=== PATIENT | female | born 1950 | race Caucasian/White ===

== ENCOUNTER → 2024-02-24 10:42 | Outpatient (REF) | payer MEDICARE, OTHER, SELFPAY | LOC: WDC 10:42 | PROVIDERS: ATTENDING PHYSICIAN Nurse Practitioner | DX: Z12.31 Encounter for screening mammogram for malignant neoplasm of breast (principal) | CPT/HCPCS: 77063; 77067 ==

== ENCOUNTER → 2024-08-09 08:40 | Outpatient (REF) | payer MEDICARE, OTHER, SELFPAY ==
[2024-08-09 09:44] LABS: % Basophils 0.6 % (0-2); % Eosinophils 6.3 % (0-6); % Immature Granulocytes 0.4 % (0-0.5); % Lymphocytes 15.5 % (20.5-51.1); % Monocytes 8.5 % (1.7-9.3); % Neutrophils 68.7 % (42.2-75.2); Absolute Eosinophils 0.3 10^3/uL (0-0.7); Absolute Lymphocytes 0.8 10^3/uL (1.2-3.4); Absolute Monocytes 0.5 10^3/uL (0.1-0.6); Absolute Neutrophils 3.7 10^3/uL (1.4-6.5); Hematocrit 36.8 % (37.0-47.0); Hemoglobin 12.2 g/dL (12.0-16.0); Mean Corp Hgb Conc. 33.2 g/dL (33.0-37.0); Mean Corpuscular Hgb 29.4 pg (27.0-31.0); Mean Corpuscular Volume 88.7 fL (81.0-99.0); Mean Platelet Volume 9.5 fL (7.4-10.4); Nucleated Red Blood Cells % 0 %; Platelet Count 191 10^3/uL (130-400); Red Blood Cell Count 4.15 10^6/uL (4.20-5.40); White Blood Cell Count 5.4 10^3/uL (4.8-10.8)
[2024-08-09 09:58] LABS: ALT (SGPT) < 10 U/L (0-35); AST (SGOT) 20 U/L (14-36); Albumin 3.9 g/dl (3.5-5.0); Alkaline Phosphatase 71 U/L (38-126); Blood Urea Nitrogen 15 mg/dl (7-17); Calcium 9.3 mg/dl (8.4-10.2); Carbon Dioxide 26 mmol/L (22-30); Chloride 106 mmol/L (98-107); Glucose 104 mg/dl (70-99); HDL Cholesterol 66 mg/dl; LDL Cholesterol, Calculated 83 mg/dl; Potassium 4.4 mmol/L (3.5-5.1); Sodium 142 mmol/L (135-145); Total Bilirubin 0.5 mg/dl (0.2-1.3); Total Cholesterol 167 mg/dl (50-199); Total Protein 6.4 g/dl (6.3-8.2); Triglyceride 92 mg/dl (10-149); Very Low Density Lipoprotein 18 mg/dl (0-30); eGFR > 60.00
[2024-08-09 10:54] LABS: TSH 1.35 uIU/ml (0.47-4.68)
[2024-08-09 11:28] LABS: Glycohemoglobin (HgbA1c) 5.5 % (4.0-5.6)
== END ==
LOC: REG 08:40
PROVIDERS: ATTENDING PHYSICIAN Nurse Practitioner
DX: E78.5 Hyperlipidemia, unspecified (principal); R73.01 Impaired fasting glucose; Z00.00 Encounter for general adult medical examination without abnormal findings; R53.83 Other fatigue
CPT/HCPCS: 36415; 80053; 80061; 83036; 84443; 85025

== ENCOUNTER 2024-12-10 10:11 | Emergency (ER) | payer MEDICARE, OTHER, SELFPAY ==
[2024-12-10 10:22] VITALS: BP 156/75
[2024-12-10 10:55] LABS: % Basophils 0.6 % (0-2); % Eosinophils 4.9 % (0-6); % Immature Granulocytes 0.2 % (0-0.5); % Lymphocytes 10.7 % (20.5-51.1); % Monocytes 10.3 % (1.7-9.3); % Neutrophils 73.3 % (42.2-75.2); Absolute Eosinophils 0.3 10^3/uL (0-0.7); Absolute Lymphocytes 0.6 10^3/uL (1.2-3.4); Absolute Monocytes 0.5 10^3/uL (0.1-0.6); Absolute Neutrophils 3.8 10^3/uL (1.4-6.5); Hematocrit 37.4 % (37.0-47.0); Hemoglobin 12.6 g/dL (12.0-16.0); Mean Corp Hgb Conc. 33.7 g/dL (33.0-37.0); Mean Corpuscular Hgb 29.2 pg (27.0-31.0); Mean Corpuscular Volume 86.6 fL (81.0-99.0); Mean Platelet Volume 9.5 fL (7.4-10.4); Nucleated Red Blood Cells % 0 %; Platelet Count 157 10^3/uL (130-400); Red Blood Cell Count 4.32 10^6/uL (4.20-5.40); Red Cell Dist. Width 12.9 % (11.5-14.5); White Blood Cell Count 5.1 10^3/uL (4.8-10.8)
[2024-12-10 11:02] LABS: ALT (SGPT) 10 U/L (0-35); AST (SGOT) 22 U/L (14-36); Albumin 3.8 g/dl (3.5-5.0); Alkaline Phosphatase 74 U/L (38-126); Blood Urea Nitrogen 16 mg/dl (7-17); Calcium 8.5 mg/dl (8.4-10.2); Carbon Dioxide 26 mmol/L (22-30); Chloride 105 mmol/L (98-107); Glucose 113 mg/dl (70-99); Potassium 4.1 mmol/L (3.5-5.1); Sodium 139 mmol/L (135-145); Total Bilirubin 0.5 mg/dl (0.2-1.3); Total Protein 6.3 g/dl (6.3-8.2); eGFR > 60.00
[2024-12-10 11:05] LABS: Lactic Acid 0.7 mmol/L (0.7-2.0)
--- NOTE | 2024-12-10 11:17 | ED.GENMED ---
History of Present Illness
<CHERIE De La Rosa - Last Filed: 12/10/24 13:22>
General
Chief Complaint: Skin Problem
Source: patient
Exam Limitations: none
Time Seen by Provider: 12/10/24 10:36
Nursing documentation reviewed up to this point in time: agreed with
History of Present Illness
History of Present Illness:
Patient is a 74-year-old female who presents to the ER for evaluation of right leg redness and swelling. Patient has chronic lymphedema in the right leg but started with chills on Friday and then on Friday noticed her right lower leg was red.
She saw her PCP and was prescribed clindamycin 450 mg 3 times a day. She had 2 doses on Friday and has had a total of 6 doses. The chills went away however today she noticed increasing redness and slight increased swelling. She denies any
fevers
Past History
<CHEIRE De La Rosa - Last Filed: 12/10/24 13:22>
Past History
ED Past Medical History: HTN, Hypercholesterolemia and Hypothyroidism
Social History
Tobacco: Non-smoker
Alcohol: None
Personal:
Living: with family
Review of Systems
<CHERIE De La Rosa - Last Filed: 12/10/24 13:22>
Review of Systems
Allergies reviewed?: Yes
All Other Systems: ROS reviewed and negative except as documented in HPI and ROS
Constitutional: Reports no symptoms; Denies fever
Respiratory: Reports no symptoms
Cardiac: Reports no symptoms
ABD/GI: Reports no symptoms
: Reports no symptoms
Musculoskeletal: Reports other (right leg swelling/redness)
Skin: Reports no symptoms
Psychiatric: Reports no symptoms
Phy Exam
<CHERIE De La Rosa - Last Filed: 12/10/24 13:22>
General Physical Exam
General Presentation: no apparent distress
General age: appears stated age
General Skin: warm and dry
General Habitus: normal
General Mental: alert
General Hydration: appears well hydrated
Neurological Exam
Neurological Exam: alert and oriented x3
Musculoskeletal Exam
Musculoskeletal Exam: other (rle with + strong pulses + erythema and swelling to right lower leg(slight increased swelling more than normal ))
Skin Exam
Skin Exam: normal color and warm/dry
Psychiatric Exam
Psychiatric Exam: normal mood/affect
Course
<CHERIE De La Rosa - Last Filed: 12/10/24 13:22>
Orders/Labs/Results
Orders:
Orders
12/10/24 10:34
Complete Blood Count/With Diff Urgent
Comprehensive Metabolic Panel Urgent
Lactic Acid Q4H
Comment: ON ICE, CANCEL 2ND ORDER IF FIRST LACTIC ACID LEVEL <2
12/10/24 11:16
Venous Doppler Lwr Ext Rt [US Periph Venous LOWER Ext RT] Urgent
Comment:
Reason For Exam: right leg swelling
Abnormal Lab Results
12/10/24
10:34
Absolute Lymphs (auto) 0.6 L 10^3/uL
(1.2-3.4)
Lymphocytes % 10.7 L %
(20.5-51.1)
Monocytes % 10.3 H %
(1.7-9.3)
Glucose 113 H mg/dl
(70-99)
12/10/24 10:34
12/10/24 10:34
Vital Signs
Initial and Last Documented VS:
Initial Vital Signs
Temp Pulse Resp BP Pulse Ox
98.7 F 76 16 156/75 98
12/10/24 10:22 12/10/24 10:22 12/10/24 10:22 12/10/24 10:22 12/10/24 10:22
Last Documented Vital Signs
Temp Pulse Resp BP Pulse Ox
98.7 F 76 16 156/75 98
12/10/24 10:22 12/10/24 10:22 12/10/24 10:22 12/10/24 10:22 12/10/24 10:22
<Carlos Barnett, DO - Last Filed: 12/10/24 13:08>
Orders/Labs/Results
Orders:
Orders
12/10/24 10:34
Complete Blood Count/With Diff Urgent
Comprehensive Metabolic Panel Urgent
Lactic Acid Q4H
Comment: ON ICE, CANCEL 2ND ORDER IF FIRST LACTIC ACID LEVEL <2
12/10/24 11:16
Venous Doppler Lwr Ext Rt [US Periph Venous LOWER Ext RT] Urgent
Comment:
Reason For Exam: right leg swelling
Abnormal Lab Results
12/10/24
10:34
Absolute Lymphs (auto) 0.6 L 10^3/uL
(1.2-3.4)
Lymphocytes % 10.7 L %
(20.5-51.1)
Monocytes % 10.3 H %
(1.7-9.3)
Glucose 113 H mg/dl
(70-99)
12/10/24 10:34
12/10/24 10:34
Vital Signs
Initial and Last Documented VS:
Initial Vital Signs
Temp Pulse Resp BP Pulse Ox
98.7 F 76 16 156/75 98
12/10/24 10:22 12/10/24 10:22 12/10/24 10:22 12/10/24 10:22 12/10/24 10:22
Last Documented Vital Signs
Temp Pulse Resp BP Pulse Ox
98.7 F 76 16 156/75 98
12/10/24 10:22 12/10/24 10:22 12/10/24 10:22 12/10/24 10:22 12/10/24 10:22
<CHERIE De La Rosa - Last Filed: 12/10/24 13:22>
MDM/Problems Addressed
Differential Diagnosis Includes:
Not limited to cellulitis less likely DVT
MDM/Problems Addressed:
Patient has been on 6 doses of clindamycin for cellulitis of the right leg right leg but complains of persistent redness. She however does not feel ill denies any fever chills and is nontoxic on exam with a normal white count. She is chronic
lymphedema to the right leg. Ultrasound done and negative. Case discussed with Dr. Daiz who evaluated patient will DC with Bactrim as well in addition to patient taking clindamycin
<CHERIE De La Rosa - Last Filed: 12/10/24 13:22>
*Critical Care Note
Total Time (30-74mins, 75-104mins- exclusive of procedures): Not Applicable
ED Attending Note
<CHERIE De La Rosa - Last Filed: 12/10/24 13:22>
-
Portions of this chart may have been created with voice recognition software.� Occasional wrong word or��sound alike� substitutions may have occurred due to the inherent limitations of voice recognition software.
<Carlos Barnett DO - Last Filed: 12/10/24 13:08>
ED Attending Note
Patient seen and examined by attending physician: Yes
I performed the substantive portion of visit, reviewed & personally made and approve the management plan that is documented in note by myself or MARY.: Yes
ED Attending Note:
I have seen and evaluated the patient with a [id number] encounter. I have spoken to the advance practicer provider and involved in the medical history, the physical exam, medical decision making.
Evaluation and management service: agree unless noted differently below.
Results interpretation: agree unless noted differently below.
Focused HPI: 74-year-old female presenting with increased redness to her right leg. She has a history of lymphedema. It has developed in the cellulitis in the past. She is concerned because she has taken a total of 6 doses of clindamycin already
and the erythema persists. However, the chills and the pain has improved
Physical exam: Bilateral leg lymphedema. Erythema noted to right leg. Sensation and pulses grossly intact
Medical Decision Making: Ultrasound negative for DVT. Will add Bactrim for extra coverage. Patient is comfortable this plan and understand strict return precautions
Discharge Plan
Departure
Patient Disposition: Home (Routine Discharge)
Date of Disposition: 12/10/24
Time of Disposition: 13:18
Patient with high blood pressure during this ER visit?: Yes
Condition: Fair
Covid-19: Not Applicable
Discharge Problem:
Cellulitis
Instructions: Cellulitis (Skin Infection), Adult (DC), BLOOD PRESSURE
Prescriptions:
New
sulfamethoxazole-trimethoprim [Bactrim DS] 800-160 mg tablet
1 tab PO BID Qty: 20 0RF
No Action
polyethylene glycol 3350 [Miralax] 17 gram Powder In Packet
PO
omeprazole [Prilosec] 40 mg Capsule,Delayed Release(Dr/Ec)
40 mg PO DAILY
meloxicam 7.5 mg Tablet
7.5 mg PO PRN (Reason: pain)
amlodipine 10 mg Tablet
10 mg PO DAILY
cyclobenzaprine 5 mg Tablet
5 mg PO PRN (Reason: stiffness)
Colyte 240-22.72-6.72 -5.84 gram Recon Soln
PO DIRECTED
melatonin 5 mg Tablet
5 mg PO HS
aspirin 81 mg Capsule
81 mg PO DAILY
levothyroxine
1 tab PO DAILY
lisinopril
1 tab PO DAILY
pantoprazole [Protonix] 40 mg tablet,delayed release (DR/EC)
40 mg PO DAILY Qty: 30 0RF
Referrals:
Luma Olsen CRNP [Family Provider] -
Activity Restrictions/Additional Instructions:
As discussed continue clindamycin however a prescription for Bactrim was sent to your pharmacy take as directed twice a day for the next 10 days. Closely follow-up with your family doctor for reevaluation i and return if any worsening of symptoms
Interventions
Interventions:
*Risk Screen - Suicide Last Done: 12/10/24 10:22
*General Assessment Last Done: 12/10/24 11:41
*Neglect/Abuse Screening Last Done: 12/10/24 10:22
*ED COVID-19 Vaccine History Last Done: 12/10/24 11:41
Discharge Date and Time
Print Language: ECUADOREAN
[2024-12-10] MEDS: BACTRIM DS 800 MG/160 MG 1 TABLET PO (13:29)
[2024-12-10 13:31] VITALS: BP 170/86
== END 2024-12-10 13:31 | disposition home or self-care (01) ==
LOC: EMR 10:11
PROVIDERS: EMERGENCY PHYSICIAN Student in an Organized Health Care Education/Training Program; FAMILY PHYSICIAN Nurse Practitioner
DX: L03.115 Cellulitis of right lower limb (principal); E03.9 Hypothyroidism, unspecified; E78.00 Pure hypercholesterolemia, unspecified; I10 Essential (primary) hypertension; I89.0 Lymphedema, not elsewhere classified
CPT/HCPCS: 99284; 80053; 83605; 85025; 93971

== ENCOUNTER 2025-01-13 12:32 | Inpatient (IN) | payer MEDICARE, OTHER, SELFPAY ==
[2025-01-13 08:10] VITALS: BP 165/82
[2025-01-13 09:07] VITALS: BMI 56.3
--- NOTE | 2025-01-13 09:24 | ED.GENMED ---
History of Present Illness
General
Chief Complaint: Skin Problem
Source: patient
Exam Limitations: none
Time Seen by Provider: 01/13/25 09:01
History of Present Illness
History of Present Illness:
74yoF with a history of hypertension, hyperlipidemia, hypothyroidism, obesity, and chronic lymphedema with recurrent cellulitis presenting for evaluation of right lower leg redness and swelling. Symptoms have been ongoing for over a month. She was
initially prescribed a course of clindamycin by her PCP on 12/08/2024. She was subsequently seen in the ED on 12/10/2024 and Bactrim was added. She took these antibiotics for 2 weeks with persistent symptoms. Her PCP then prescribed her doxycycline
which she was supposed to finish yesterday. She noticed worsening redness in her leg over the past 24 hours. She also spiked a fever of 100.8 yesterday. Her PCP prescribed an additional 10 days of doxycycline but patient believes she may need IV
antibiotics. She denies any cough, URI symptoms, dysuria, vomiting, diarrhea. No history of diabetes.
Past History
Past History
ED Past Medical History: HTN, Hypercholesterolemia and Hypothyroidism
Social History
Tobacco: Non-smoker
Alcohol: None
Personal:
Living: with family
Phy Exam
General Physical Exam
General Presentation: well appearing and no apparent distress
General age: appears stated age
General Skin: warm and dry
General Habitus: normal
General Mental: alert
ENT Exam
ENT Exam: normocephalic
Pulmonary Exam
Pulmonary Exam: no respiratory distress
Neurological Exam
Neurological Exam: alert
Diego Coma Scale
Eye Opening: Spontaneous
Verbal Response: Oriented
Motor Response: Obeys Commands
GCS Total Score: 15
Skin Exam
Skin Exam: warm/dry and other (Erythema and warmth noted to the R lower leg consistent with cellulitis. No fluctuance, purulence, crepitus, or pain out of proportion. )
Psychiatric Exam
Psychiatric Exam: normal mood/affect
Course
Orders/Labs/Results
Orders:
Orders
01/13/25 09:22
0.9% Sodium Chloride 500 ml [Nss] 500 ml IV BOLUS
01/13/25 09:25
CefTRIAXone [Rocephin] 2,000 mg IV NOW STA
01/13/25 09:54
COVID-19 Antigen Urgent
Source: Nasal Swab
Complete Blood Count/With Diff Urgent
Comprehensive Metabolic Panel Urgent
Lactate Level [Lactic Acid] Urgent
Blood Culture Q30M
SALAZAR Source: Blood/Venous
Specimen Description:
Blood Culture Q30M
SALAZAR Source: Blood/Venous
Specimen Description:
Influenza A+B Rapid Molecular Urgent
SALAZAR Source: Nasal Swab
Specimen Description:
01/13/25 Lunch
Regular
01/13/25 12:16
Admit/Transfer Patient As Directed
Co-Sign Provider:
Level of Care: Inpatient admission
Assign to:: Medical/Surgical
Physician / Group: Shabbir
Diagnosis: LE cellulites
Reason for Hospitalization: failed oral antibiotics
Expected length of stay greater than two midnights?: Yes
ELOS- Estimated Length of Stay in days: 2
I certify the patient meets the requirements for IP care: Yes
01/13/25 12:17
PRN Pain Medication Management As Directed
May give lesser potent ordered pain med per pt: Yes
preference::
Protocol:: Medication orders for pain may be administered in a
manner that supports deferring to patient preference
when the pt is:
- Requesting an ordered lesser potent pain medication.
Least to most potent pain medications are defined
as: acetaminophen < NSAID < tramadol < opioids
(morphine, oxycodone, hydromorphone).
- Requesting a lesser dose of the same medication IF
ORDERED.
- Requesting a less intrusive route of administration
if both routes are prescribed by the provider (PO <
IV).
01/13/25 12:19
Code Status As Directed
Resuscitation Status: Full Code
01/13/25 13:58
Acetaminophen [Tylenol] 650 mg PO Q6HPRN PRN
Amlodipine [Norvasc] 5 mg PO QPM
Aspirin Low Dose EC [Aspir Low (Enteric Coated)] 81 mg PO QPM
Levothyroxine [Synthroid] 125 mcg PO QPM
Lisinopril [Zestril] 20 mg PO QPM
01/13/25 13:58
Add On- LAB Routine
Tests Added?: TSH, P-CHF BNP, Hg A1c
CT Lower Ext W/o Iv Cont Rt Routine
Comment:
Reason For Exam: severe cellulites not responding to oral abx
Periph Venous Lwr Ext Rt US [US Periph Venous LOWER Ext RT] Urgent
Comment:
Reason For Exam: erythema and edema
DX Deep Vein Thrombosis Video Routine
01/13/25 14:00
CeFAZolin 2 GRAM [Ancef] 2 grams in 10 ml IV Q8H
01/13/25 18:00
Docusate Sodium [Colace] 200 mg PO QPM
Enoxaparin Sodium [Lovenox] 40 mg SC QPM
Pantoprazole [Protonix] 40 mg PO QPM
Rosuvastatin Calcium [Crestor] 5 mg PO QPM
Sennosides [Senokot] 17.2 mg PO QPM
01/14/25 06:00
BMP [Basic Metabolic Panel] IN AM
CBC/With Diff [Complete Blood Count/With Diff] IN AM
Abnormal Lab Results
01/13/25
09:54
WBC 4.6 L 10^3/uL
(4.8-10.8)
RBC 4.17 L 10^6/uL
(4.20-5.40)
MCHC 32.9 L g/dL
(33.0-37.0)
MPV 10.6 H fL
(7.4-10.4)
Absolute Lymphs (auto) 0.7 L 10^3/uL
(1.2-3.4)
Lymphocytes % 14.2 L %
(20.5-51.1)
Monocytes % 10.7 H %
(1.7-9.3)
Glucose 104 H mg/dl
(70-99)
01/13/25 09:54
01/13/25 09:54
Vital Signs
Initial and Last Documented VS:
Initial Vital Signs
Temp Pulse Resp BP Pulse Ox
98.6 F 68 18 165/82 98
01/13/25 08:10 01/13/25 08:10 01/13/25 08:10 01/13/25 08:10 01/13/25 08:10
Last Documented Vital Signs
Temp Pulse Resp BP Pulse Ox
98.6 F 68 18 165/82 98
01/13/25 08:10 01/13/25 08:10 01/13/25 08:10 01/13/25 08:10 01/13/25 08:10
MDM/Problems Addressed
Differential Diagnosis Includes:
74yoF here with R lower leg redness/swelling x 1 month. Completed multiple courses of antibiotics including Bactrim, clindamycin, and doxycycline without relief. Spiked a fever of 100.8 yesterday. VSS. She is well-appearing in no acute distress.
There is erythema and warmth to the leg on exam. Differential diagnosis includes but is not limited to: Cellulitis, erysipelas, lymphedema, no evidence of abscess or NSTI.
Initial ED plan: Check septic workup including lactate and blood cultures. Patient had venous duplex last month which was negative. IV Rocephin ordered. She will require hospitalization given failure of outpatient antibiotics.
*Critical Care Note
Total Time (30-74mins, 75-104mins- exclusive of procedures): Not Applicable
ED Attending Note
-
Portions of this chart may have been created with voice recognition software.� Occasional wrong word or��sound alike� substitutions may have occurred due to the inherent limitations of voice recognition software.
Discharge Plan
Departure
Patient Disposition: Admit
Date of Disposition: 01/13/25
Time of Disposition: 10:44
Presentation/result/management discussed w/ accepting MD/DO: Hospitalist
Discharge Problem:
Cellulitis of right lower extremity
Interventions
Interventions:
*Risk Screen - Suicide Last Done: 01/13/25 08:10
*General Assessment Last Done: 01/13/25 08:10
*Neglect/Abuse Screening Last Done: 01/13/25 08:10
ED- Fall Risk Assessment Last Done: 01/13/25 09:07
*ED COVID-19 Vaccine History Last Done: 01/13/25 08:10
*Nursing Disposition Last Done: 01/13/25 13:51
ED-Skin Assessment Last Done: 01/13/25 09:07
Discharge Date and Time
Discharge Date/Time: 01/13/25 13:51
[2025-01-13] MEDS: ROCEPHIN 2000 MG IV (10:11)
[2025-01-13] MEDS: NSS 500 IV (10:11)
[2025-01-13 10:32] LABS: % Basophils 0.2 % (0-2); % Eosinophils 3.9 % (0-6); % Immature Granulocytes 0.2 % (0-0.5); % Lymphocytes 14.2 % (20.5-51.1); % Monocytes 10.7 % (1.7-9.3); % Neutrophils 70.8 % (42.2-75.2); Absolute Eosinophils 0.2 10^3/uL (0-0.7); Absolute Lymphocytes 0.7 10^3/uL (1.2-3.4); Absolute Monocytes 0.5 10^3/uL (0.1-0.6); Absolute Neutrophils 3.3 10^3/uL (1.4-6.5); Hematocrit 37.4 % (37.0-47.0); Hemoglobin 12.3 g/dL (12.0-16.0); Mean Corp Hgb Conc. 32.9 g/dL (33.0-37.0); Mean Corpuscular Hgb 29.5 pg (27.0-31.0); Mean Corpuscular Volume 89.7 fL (81.0-99.0); Mean Platelet Volume 10.6 fL (7.4-10.4); Nucleated Red Blood Cells % 0 %; Platelet Count 150 10^3/uL (130-400); Red Blood Cell Count 4.17 10^6/uL (4.20-5.40); Red Cell Dist. Width 13.9 % (11.5-14.5); White Blood Cell Count 4.6 10^3/uL (4.8-10.8)
[2025-01-13 10:38] LABS: COVID-19 Antigen Negative (Negative)
[2025-01-13 10:39] LABS: Lactic Acid 0.8 mmol/L (0.7-2.0)
[2025-01-13 10:40] LABS: ALT (SGPT) < 10 U/L (0-35); AST (SGOT) 20 U/L (14-36); Albumin 4.1 g/dl (3.5-5.0); Alkaline Phosphatase 75 U/L (38-126); Blood Urea Nitrogen 14 mg/dl (7-17); Calcium 8.7 mg/dl (8.4-10.2); Carbon Dioxide 28 mmol/L (22-30); Chloride 104 mmol/L (98-107); Estimated Creatinine Clearance 87 ml/min; Glucose 104 mg/dl (70-99); Potassium 4.2 mmol/L (3.5-5.1); Sodium 138 mmol/L (135-145); Total Bilirubin 0.7 mg/dl (0.2-1.3); Total Protein 6.4 g/dl (6.3-8.2); eGFR > 60.00
--- NOTE | 2025-01-13 12:26 | HPS.HSE ---
Family Physician
-
Family Physician: CHERIE Resendiz
Chief Complaint
-
Right lower extremity cellulitis
History of Present Illness
Patient is a 74 years old female with lymphedema who presents with persistent right lower extremity cellulitis. Patient received close to 2 weeks of oral antibiotic therapy including Bactrim, clindamycin. Although reports to the emergency room
today with persistent right lower extremity erythema and induration, pain, and low-grade fever at home. She denies chills. She has recently been referred to lymphedema clinic pending first visit.
Medical History
Past Medical History
Past Medical History: Reports HTN and Hypercholesterolemia; Denies CHF or NIDDM
Past Surgical History: Reports None
Social History
Tobacco: Non-smoker
Drug: None
Living: With Family
Family History
Family History: Not pertinent
Allergies / Home Medications
Allergies reflects when Allergies were last updated in [facility].
Home Medications with original date entered in [facility]
Allergy/Medication List:
Allergies
Allergy/AdvReac Type Severity Reaction Status Date / Time
iohexol [From Omnipaque] Allergy Hives Verified 01/13/25 08:14
levofloxacin [From Levaquin] Allergy Unknown Verified 01/13/25 08:14
Penicillins Allergy Swelling, Verified 01/13/25 08:14
throat
closing up
Home Medications
amlodipine 5 mg tablet 5 mg PO QPM 01/13/25
aspirin 81 mg tablet,delayed release 81 mg PO QPM 01/13/25
docusate sodium 100 mg capsule 200 mg PO QPM 01/13/25
doxycycline hyclate 100 mg capsule 100 mg PO BID 01/13/25
ibuprofen 200 mg tablet 400 mg PO Q6HPRN PRN HEADACHE 01/13/25
levothyroxine 125 mcg tablet 125 mcg PO QPM 01/13/25
lisinopril 20 mg tablet 20 mg PO QPM 01/13/25
pantoprazole 40 mg tablet,delayed release (Protonix) 40 mg PO QPM 01/13/25
rosuvastatin 5 mg tablet 5 mg PO QPM 01/13/25
sennosides 8.6 mg tablet (senna) 17.2 mg PO QPM 01/13/25
Review of Systems
-
A 12 point ROS was completed and negative except as noted: Yes
Physical Exam
Vital Signs
Vital Signs
Temp Pulse Resp BP Pulse Ox
98.6 F 68 18 165/82 98
01/13/25 08:10 01/13/25 08:10 01/13/25 08:10 01/13/25 08:10 01/13/25 08:10
Physical Exam
General: Well Developed, Well Nourished and No Apparent Distress
HEENT: NormoCephalic, Moist mucous membranes and Atraumatic
Respiratory: Clear
Cardiac: S1/S2 and Regular Rhythm; No Murmur or Rub
GI: Soft, Non Tender, Non Distended and Normal Bowel Sounds; No Organomegaly
Rectal: Deferred by Provider
Musculoskeletal: No Clubbing, No Cyanosis and Other (Bilateral lymphedema. Right lower extremity warm with palpable pedal pulses. Erythema and induration below the knee with no wounds, purulence or fluctuance.)
Skin: No Rash
Neuro: Nonfocal/grossly intact
Laboratory Results
-
01/13/25 09:54
01/13/25 09:54
Laboratory Results
Lactic Acid 0.8 mmol/L (0.7-2.0) 01/13/25 09:54
Total Bilirubin 0.7 mg/dl (0.2-1.3) 01/13/25 09:54
AST 20 U/L (14-36) 01/13/25 09:54
ALT < 10 U/L (0-35) 01/13/25 09:54
Alkaline Phosphatase 75 U/L (38-126) 01/13/25 09:54
Impression/Plan
-
IMPRESSION:
Right lower extremity cellulitis complicated with lymphedema.
Other conditions:
Essential hypertension
Dyslipidemia
Hypothyroidism
Obesity with BMI 56
PLAN:
Right lower extremity cellulitis complicated with lymphedema
No response to prolonged outpatient antibiotic therapy including clindamycin, doxycycline and Bactrim.
No evidence of systemic infection
Blood cultures pending.
Check right lower extremity Doppler
Check right lower extremity CT without contrast rule out deep tissue collection.
Start cefazolin 2 g every 8 hours.
Monitor response closely while inpatient
Check hemoglobin A1c
Essential hypertension
Bilateral lower extremity edema/lymphedema with no symptoms of heart failure
No prior history of CHF
Most recent echocardiogram with preserved biventricular function.
Check CHF BNP
Monitor blood pressure trend preadmission regimen including lisinopril and amlodipine
Hypothyroidism replace
Obesity with BMI of 56 affecting all aspects of care.
[2025-01-13 14:06] VITALS: BP 182/74; BMI 54.9
[2025-01-13 14:55] LABS: NT-proBNP 362 pg/ml
[2025-01-13] MEDS: NORVASC 5 MG PO ×2 (15:13→17:08)
[2025-01-13] MEDS: ANCEF 10 IV ×2 (15:14→21:53)
[2025-01-13 15:17] LABS: Glycohemoglobin (HgbA1c) 5.4 % (4.0-5.6); TSH 1.81 uIU/ml (0.47-4.68)
--- NOTE | 2025-01-13 15:35 | PTCARENOTE ---
Pt arrived to floor from ED via wheelchair. Ambulated into room without difficulty. Denying pain. Hypertensive upon admission. Scheduled Norvasc administered. LLE erythema. +3 RLE edema. +1 LLE edema. Weak pedal pulse. 98% on room air. (L) AC #20
flushed and capped.
[2025-01-13] MEDS: ASPIR LOW (ENTERIC COATED) 81 MG PO (17:08)
[2025-01-13] MEDS: PROTONIX 40 MG PO (17:08)
[2025-01-13] MEDS: SENOKOT 17.2 MG PO (17:08)
[2025-01-13] MEDS: SYNTHROID 125 MCG PO (17:08)
[2025-01-13] MEDS: COLACE 200 MG PO (17:08)
[2025-01-13] MEDS: CRESTOR 5 MG PO (17:08)
[2025-01-13] MEDS: ZESTRIL 20 MG PO (17:08)
[2025-01-13] MEDS: LOVENOX 40 MG SC (17:09)
[2025-01-13 17:39] VITALS: BP 152/70
[2025-01-13 23:42] VITALS: BP 127/58
[2025-01-14] MEDS: ANCEF 10 IV ×3 (05:20→22:56)
[2025-01-14 05:44] LABS: % Basophils 0.2 % (0-2); % Eosinophils 5.6 % (0-6); % Immature Granulocytes 0.5 % (0-0.5); % Lymphocytes 16.6 % (20.5-51.1); % Monocytes 12.2 % (1.7-9.3); % Neutrophils 64.9 % (42.2-75.2); Absolute Eosinophils 0.2 10^3/uL (0-0.7); Absolute Lymphocytes 0.7 10^3/uL (1.2-3.4); Absolute Monocytes 0.5 10^3/uL (0.1-0.6); Absolute Neutrophils 2.7 10^3/uL (1.4-6.5); Hematocrit 33.1 % (37.0-47.0); Hemoglobin 10.7 g/dL (12.0-16.0); Mean Corp Hgb Conc. 32.3 g/dL (33.0-37.0); Mean Corpuscular Hgb 29.7 pg (27.0-31.0); Mean Corpuscular Volume 91.9 fL (81.0-99.0); Nucleated Red Blood Cells % 0 %; Platelet Count 130 10^3/uL (130-400); Red Cell Dist. Width 13.7 % (11.5-14.5); White Blood Cell Count 4.1 10^3/uL (4.8-10.8)
[2025-01-14 06:31] LABS: Blood Urea Nitrogen 17 mg/dl (7-17); Calcium 8.3 mg/dl (8.4-10.2); Carbon Dioxide 30 mmol/L (22-30); Chloride 107 mmol/L (98-107); Estimated Creatinine Clearance 100 ml/min; Glucose 98 mg/dl (70-99); Potassium 4.2 mmol/L (3.5-5.1); Sodium 139 mmol/L (135-145); eGFR > 60.00
[2025-01-14 07:35] VITALS: BP 150/70
--- NOTE | 2025-01-14 11:12 | CM ---
Patient seen at bedside. Patient states that she lives with her in a rancher with chair lift to the basement. Patient has no other DME at home. Patient [employer]MI[employer] is Luma Olsen and she uses [facility] in [place] on [address]. Patient
plan is for discharge home with possible need for VN pending treatment plan. CM will continue to follow for discharge planning needs
Plan; home with no needs vs home with VN
--- NOTE | 2025-01-14 14:01 | W.PN.HOSP.TC ---
Today's Communication/Plan
-
Continue IV antibiotics for another 24 to 48 hours monitor clinical response
Assessment / Plan
Assessment / Plan
IMPRESSION:
Right lower extremity cellulitis complicated with lymphedema.
Other conditions:
Essential hypertension
Dyslipidemia
Hypothyroidism
Obesity with BMI 56
PLAN:
Right lower extremity cellulitis complicated with lymphedema
No response to prolonged outpatient antibiotic therapy including clindamycin, doxycycline and Bactrim.
No evidence of systemic infection
Blood cultures negative to date
Right lower extremity Doppler negative for DVT
CT scan with no evidence of collection/abscess
Initiated on cefazolin 2 g every 8 hours with significant improvement of right lower extremity erythema and induration. Continue for another 24 to 48 hours.
Hemoglobin A1c normal
Essential hypertension
Bilateral lower extremity edema/lymphedema with no symptoms of heart failure
No prior history of CHF
Most recent echocardiogram with preserved biventricular function.
Check CHF BNP
Monitor blood pressure trend preadmission regimen including lisinopril and amlodipine
Hypothyroidism replace
Obesity with BMI of 56 affecting all aspects of care.
Anticipated Discharge: 24 - 48 hours
Subjective/Interval History
-
Date of Service: January 14, 2025
Objective Data
-
Labs:
Laboratory Results
01/14/25
05:32
WBC 4.1 L
Hgb 10.7 L
Hct 33.1 L
Plt Count 130
Sodium 139
Potassium 4.2
Chloride 107
Carbon Dioxide 30
BUN 17
Creatinine 0.6
Glucose 98
Calcium 8.3 L
Vital Signs:
Vital Signs
Temp Pulse Resp BP Pulse Ox
98.0 F 59 16 150/70 96
01/14/25 07:35 01/14/25 07:35 01/14/25 07:35 01/14/25 07:35 01/14/25 07:35
Physical Exam
-
General: Well Developed and No Apparent Distress
HEENT: Normocephalic, Atraumatic and Moist Mucous Membranes
Respiratory: Clear to Auscultation
Cardiac: Regular Rhythm and S1/S2; Negative Murmur, Rub or Gallop
GI: Soft, Nontender, Nondistended and Normal Bowel Sounds; Negative Organomegaly
Rectal: Deferred by Provider
Musculoskeletal: No Clubbing, No Cyanosis and Other (Bilateral lower extremity lymphedema. Right lower extremity with mild erythema and induration below the knee extending peripherally down to ankle. No evidence of joint involvement either knee or
ankle.)
Skin: Negative Rash
Neuro: Nonfocal/Grossly Intact
[2025-01-14 14:32] VITALS: BP 139/65
[2025-01-14] MEDS: PROTONIX 40 MG PO (17:23)
[2025-01-14] MEDS: COLACE 200 MG PO (17:23)
[2025-01-14] MEDS: ZESTRIL 20 MG PO (17:23)
[2025-01-14] MEDS: SENOKOT 17.2 MG PO (17:23)
[2025-01-14] MEDS: NORVASC 5 MG PO (17:23)
[2025-01-14] MEDS: ASPIR LOW (ENTERIC COATED) 81 MG PO (17:23)
[2025-01-14] MEDS: LOVENOX 40 MG SC (17:23)
[2025-01-14] MEDS: SYNTHROID 125 MCG PO (17:23)
[2025-01-14] MEDS: CRESTOR 5 MG PO (17:23)
[2025-01-14 23:28] VITALS: BP 148/50
[2025-01-15] MEDS: ANCEF 10 IV ×3 (06:01→22:27)
[2025-01-15 07:47] VITALS: BP 148/54
--- NOTE | 2025-01-15 11:45 | W.PN.HOSP.TC ---
Today's Communication/Plan
-
dc in am
c/w IV Ancef for another 24 hours
Oral Keflex was sent to pharmacy
Maintain compression dressing as tolerated, preferably 2 hours on/1 hour off
Assessment / Plan
Assessment / Plan
Physical Exam
-
General: Well Developed and No Apparent Distress
HEENT: Normocephalic, Atraumatic and Moist Mucous Membranes
Respiratory: Clear to Auscultation
Cardiac: Regular Rhythm and S1/S2; Negative Murmur, Rub or Gallop
GI: Soft, Nontender, Nondistended and Normal Bowel Sounds; Negative Organomegaly
Rectal: Deferred by Provider
Musculoskeletal: No Clubbing, No Cyanosis and Other (Bilateral lower extremity lymphedema. Right lower extremity with mild erythema, not tender to touch) No evidence of joint involvement either knee or ankle.)
Skin: Negative Rash
Neuro: Nonfocal/Grossly Intact
IMPRESSION:
Right lower extremity cellulitis complicated with lymphedema.
Other conditions:
Essential hypertension
Dyslipidemia
Hypothyroidism
Obesity with BMI 56
PLAN:
Right lower extremity cellulitis complicated with lymphedema
No response to prolonged outpatient antibiotic therapy including clindamycin, doxycycline and Bactrim.
No evidence of systemic infection
Blood cultures negative to date
Right lower extremity Doppler negative for DVT
CT scan with no evidence of collection/abscess
Initiated on cefazolin 2 g every 8 hours with significant improvement of right lower extremity erythema and induration. Continue for another 24 to 48 hours.
Hemoglobin A1c normal
Essential hypertension
Bilateral lower extremity edema/lymphedema with no symptoms of heart failure
No prior history of CHF
Most recent echocardiogram with preserved biventricular function.
Check CHF BNP
Monitor blood pressure trend preadmission regimen including lisinopril and amlodipine
# Leukopenia, no fevers
# drop in HGB, likely dilutional
#Hypothyroidism replace
#Obesity with BMI of 56 affecting all aspects of care. We discussed options for weight loss. Recommended to follow-up with weight management clinic. She verbalized understanding.
Total time spent to see the patient on the floor, examine the patient, review data and lab results, discuss treatment plan with patient, nursing staff around 55 minutes
Anticipated Discharge: Within 24 hours
Subjective/Interval History
-
Date of Service: January 15, 2025
No pain in leg
Improvement in erythema of right lower leg
Objective Data
-
Vital Signs:
Vital Signs
Temp Pulse Resp BP Pulse Ox
98.5 F 57 16 148/54 96
01/15/25 07:47 01/15/25 07:47 01/15/25 07:47 01/15/25 07:47 01/15/25 10:14
I&O
01/14/25 01/15/25 01/16/25
06:59 06:59 06:59
Intake Total 480 / 480
Balance 480 / 480
[2025-01-15 15:02] VITALS: BP 147/63
[2025-01-15] MEDS: ZESTRIL 20 MG PO (17:09)
[2025-01-15] MEDS: ASPIR LOW (ENTERIC COATED) 81 MG PO (17:09)
[2025-01-15] MEDS: PROTONIX 40 MG PO (17:09)
[2025-01-15] MEDS: COLACE 200 MG PO (17:11)
[2025-01-15] MEDS: CRESTOR 5 MG PO (17:11)
[2025-01-15] MEDS: SENOKOT 17.2 MG PO (17:12)
[2025-01-15] MEDS: NORVASC 5 MG PO (17:12)
[2025-01-15] MEDS: LOVENOX 40 MG SC (17:14)
[2025-01-15] MEDS: SYNTHROID 125 MCG PO (17:20)
[2025-01-15 23:00] VITALS: BP 147/54
[2025-01-16] MEDS: ANCEF 10 IV (05:27)
[2025-01-16 06:59] LABS: Hematocrit 30.9 % (37.0-47.0); Hemoglobin 10.5 g/dL (12.0-16.0); Mean Corpuscular Hgb 30.3 pg (27.0-31.0); Mean Corpuscular Volume 89.3 fL (81.0-99.0); Mean Platelet Volume 10.5 fL (7.4-10.4); Platelet Count 146 10^3/uL (130-400); Red Blood Cell Count 3.46 10^6/uL (4.20-5.40); Red Cell Dist. Width 13.7 % (11.5-14.5); White Blood Cell Count 4.6 10^3/uL (4.8-10.8)
[2025-01-16 07:30] VITALS: BP 143/58
[2025-01-16] MEDS: KEFLEX 500 MG PO (08:18)
--- NOTE | 2025-01-16 10:31 | W.PN.HOSP.TC ---
Today's Communication/Plan
-
dc
Assessment / Plan
Assessment / Plan
Physical Exam
-
General: Well Developed and No Apparent Distress
HEENT: Normocephalic, Atraumatic and Moist Mucous Membranes
Respiratory: Clear to Auscultation
Cardiac: Regular Rhythm and S1/S2; Negative Murmur, Rub or Gallop
GI: Soft, Nontender, Nondistended and Normal Bowel Sounds; Negative Organomegaly
Rectal: Deferred by Provider
Musculoskeletal: No Clubbing, No Cyanosis and Other (Bilateral lower extremity lymphedema. Right lower extremity with much less erythema, not tender to touch) No evidence of joint involvement either knee or ankle.)
Skin: Negative Rash
Neuro: Nonfocal/Grossly Intact
IMPRESSION:
Right lower extremity cellulitis complicated with lymphedema.
Other conditions:
Essential hypertension
Dyslipidemia
Hypothyroidism
Obesity with BMI 56
PLAN:
Right lower extremity cellulitis complicated with lymphedema
No response to prolonged outpatient antibiotic therapy including clindamycin, doxycycline and Bactrim.
No evidence of systemic infection
Blood cultures negative to date
Right lower extremity Doppler negative for DVT
CT scan with no evidence of collection/abscess
Initiated on cefazolin 2 g every 8 hours with significant improvement of right lower extremity erythema and induration. Start oral Keflex. .
Hemoglobin A1c normal
Essential hypertension
Bilateral lower extremity edema/lymphedema with no symptoms of heart failure
No prior history of CHF
Most recent echocardiogram with preserved biventricular function.
Check CHF BNP
Monitored blood pressure trend preadmission regimen including lisinopril and amlodipine
# Leukopenia, no fevers, improving.
# drop in HGB, no bleeding, or GI problems. recommend OP follow up with PCP.
#Hypothyroidism replace
#Obesity with BMI of 56 affecting all aspects of care. We discussed options for weight loss. Recommended to follow-up with weight management clinic. She verbalized understanding.
Total discharge time spent to see the patient on the floor, examine the patient, review data and lab results, discuss discharge plan with patient, nursing staff around 65 minutes
Anticipated Discharge: Today
Subjective/Interval History
-
Date of Service: January 16, 2025
No chest pain
No sob
No worsening swelling or tenderness in right leg
Objective Data
-
Labs:
Laboratory Results
01/16/25
05:20
WBC 4.6 L
Hgb 10.5 L
Hct 30.9 L
Plt Count 146
Vital Signs:
Vital Signs
Temp Pulse Resp BP Pulse Ox
98.3 F 61 16 143/58 97
01/16/25 07:30 01/16/25 07:30 01/16/25 07:30 01/16/25 07:30 01/16/25 09:14
I&O
01/15/25 01/16/25 01/17/25
06:59 06:59 06:59
Intake Total 480 / 480 1440 / 1440
Balance 480 / 480 1440 / 1440
--- NOTE | 2025-01-16 11:00 | CM ---
CM following re: discharge planning.
Reviewed pt's chart, met with pt.
Discharge order noted. Pt is aware, expressed her agreement and she stated her is coming to transport home. IMM reviewed, placed on chart, pt has a copy.
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 No after c are VN services indicated
D/C plan: home no needs. to transport.
[2025-01-16 11:20] VITALS: BP 110/68
--- NOTE | 2025-01-16 14:02 | W.DCSUMMARY ---
Discharge Summary
Discharge Data
Date of Admission: 01/13/25
Date of Discharge: 01/16/25
-
Pending Results: No
Hospital Course
74 years old female admitted with right lower extremity erythema. Patient was diagnosed with cellulitis. She was taking oral antibiotic but felt erythema did not improve. She did not have fever or leukocytosis. She has history of lymphedema and
obesity. Patient received intravenous Ancef as she did not have allergic reaction. Blood culture did not show any growth. Patient was advised to follow-up with lymphedema clinic. Erythema and redness of the right lower extremity improved. She
did not have local tenderness in the right lower extremity. She remained hemodynamically stable and was discharged home in a stable condition to finish the antibiotic course with oral antibiotic.
Discharge Plan
-
Patient Disposition: Home (Routine Discharge)
Discharge Diagnosis/Procedures: Right lower extremity cellulitis
You were treated with intravenous antibiotic. Blood culture did not show any growth. You did not have fever or leukocytosis. You are started on oral antibiotic to finish the course. You have a penicillin allergy, we tried cephalosporin including
oral cephalexin with no reaction in the hospital
Chronic lymphedema, recommend outpatient follow-up.
Follow-up with your primary care doctor to repeat the blood work including hemoglobin level, hemoglobin upon discharge is 10.5. Recommend to repeat the blood work in the outpatient setting.
Condition: Good
Diet: Regular
Referrals:
Luma Olsen CRNP [Family Provider] - in one to two weeks
Prescriptions:
New
cephalexin 500 mg capsule
500 mg PO QID Qty: 16 0RF
Continued
sennosides [senna] 8.6 mg Tablet
17.2 mg PO QPM
lisinopril 20 mg Tablet
20 mg PO QPM
amlodipine 5 mg Tablet
5 mg PO QPM
aspirin 81 mg Tablet,Delayed Release (Dr/Ec)
81 mg PO QPM
levothyroxine 125 mcg Tablet
125 mcg PO QPM
ibuprofen 200 mg Tablet
400 mg PO Q6HPRN PRN (Reason: headache)
docusate sodium 100 mg Capsule
200 mg PO QPM
rosuvastatin 5 mg Tablet
5 mg PO QPM
pantoprazole [Protonix] 40 mg tablet,delayed release (DR/EC)
40 mg PO QPM
Discontinued
doxycycline hyclate 100 mg Capsule
100 mg PO BID
Patient Comments:
01/13/25: PICKED UP ON 12/30/24. TAKE FOR 14 DAYS.
Discharge Orders:
Discharge Patient (As Directed); Ordered 01/16/25
Ordered By: Manoj Sullivan
Discharge Date and Time
Discharge Date/Time: 01/16/25 11:48
Print Language: NAMIBIAN
== END 2025-01-16 11:48 | disposition home or self-care (01) | DRG 603 ==
LOC: 3 WEST ACU 12:32
PROVIDERS: Physician Assistant; ADMITTING PHYSICIAN Internal Medicine; ATTENDING PHYSICIAN Internal Medicine; EMERGENCY PHYSICIAN Student in an Organized Health Care Education/Training Program; FAMILY PHYSICIAN Nurse Practitioner
DX: L03.115 Cellulitis of right lower limb (principal); Z68.43 Body mass index [BMI] 50.0-59.9, adult; E03.9 Hypothyroidism, unspecified; I10 Essential (primary) hypertension; E78.00 Pure hypercholesterolemia, unspecified; E66.9 Obesity, unspecified; I89.0 Lymphedema, not elsewhere classified; Z88.0 Allergy status to penicillin; Z79.890 Hormone replacement therapy; Z79.82 Long term (current) use of aspirin; Z11.52 Encounter for screening for COVID-19
CPT/HCPCS: 73700; 80048; 80053; 83036; 83605; 83880; 84443; 85025; 85027; 87040; 87502; 87811; 93971; 96361; 96374; 99285

== ENCOUNTER 2025-01-28 08:41 | Outpatient (RCR) | payer MEDICARE, OTHER, SELFPAY | END 2025-01-28 23:59 | disposition home or self-care (01) | LOC: RPT 08:41 | PROVIDERS: ATTENDING PHYSICIAN Nurse Practitioner | DX: I89.0 Lymphedema, not elsewhere classified (principal); D72.810 Lymphocytopenia; Z73.6 Limitation of activities due to disability; R26.89 Other abnormalities of gait and mobility | CPT/HCPCS: 97163; 97530; 97760 ==

== ENCOUNTER → 2025-02-25 11:25 | Outpatient (REF) | payer MEDICARE, OTHER, SELFPAY | LOC: WDC 11:25 | PROVIDERS: ATTENDING PHYSICIAN Nurse Practitioner | DX: Z12.31 Encounter for screening mammogram for malignant neoplasm of breast (principal) | CPT/HCPCS: 77063; 77067 ==

== ENCOUNTER 2025-03-04 12:52 | Outpatient (RCR) | payer MEDICARE, OTHER, SELFPAY | END 2025-03-04 23:59 | disposition home or self-care (01) | LOC: RPT 12:52 | PROVIDERS: ATTENDING PHYSICIAN Nurse Practitioner | DX: I89.0 Lymphedema, not elsewhere classified (principal); D72.810 Lymphocytopenia; Z73.6 Limitation of activities due to disability; R26.89 Other abnormalities of gait and mobility | CPT/HCPCS: 97140; 97530 ==

== ENCOUNTER 2025-04-01 09:59 | Emergency (ER) | payer MEDICARE, OTHER, SELFPAY ==
[2025-04-01 10:04] VITALS: BP 175/79
[2025-04-01 11:34] VITALS: BMI 54.7
[2025-04-01 11:40] VITALS: BP 166/64
--- NOTE | 2025-04-01 11:59 | ED.GENMED ---
History of Present Illness
General
Chief Complaint: DVT/Possible Blood Clot
Source: patient
Exam Limitations: none
Time Seen by Provider: 04/01/25 10:35
History of Present Illness
History of Present Illness:
Nontraumatic pain behind the left knee for 2 days. No trauma. No fever chills or systemic symptoms. Has intermittent left knee pain. Slightly worse however the last few days. Wears stockings. Concerned about a DVT.
Past History
Past History
ED Past Medical History: HTN, Hypercholesterolemia and Hypothyroidism
Social History
Tobacco: Non-smoker
Alcohol: None
Personal:
Living: with family
Review of Systems
Review of Systems
All Other Systems: Not applicable
Constitutional: Denies fever or chills
Phy Exam
Physical Exam
Physical Exam:
General: Nontoxic appearing in no distress
Skin: Warm and dry, no rash
Neuro: Alert, nontoxic, grossly nonfocal
Psychiatric: Good eye contact and appropriate
Musculoskeletal: No warmth or erythema to the left knee. Good range of motion. Mild tenderness behind the knee. No cord. No calf tenderness or cord. No warmth or erythema to the lower extremities. Large leg but no pitting edema. Good distal
pulses and color. Hip and thigh nontender with good range of motion
Course
Orders/Labs/Results
Orders:
Orders
04/01/25 10:10
Knee, Left 4 or More Views [CR Knee - Left 4 Or More View*] Urgent
Comment:
Reason For Exam: posterior knee pain
US Periph Venous LOWER Ext LT Urgent
Comment:
Reason For Exam: swelling, posterior knee pain
Vital Signs
Initial and Last Documented VS:
Initial Vital Signs
Temp Pulse Resp BP Pulse Ox
99.0 F 72 18 175/79 95
04/01/25 10:04 04/01/25 10:04 04/01/25 10:04 04/01/25 10:04 04/01/25 10:04
Last Documented Vital Signs
Temp Pulse Resp BP Pulse Ox
99.0 F 60 15 166/64 95
04/01/25 10:04 04/01/25 11:40 04/01/25 11:40 04/01/25 11:40 04/01/25 10:04
MDM/Problems Addressed
Differential Diagnosis Includes:
No DVT. Thank clinically to support septic arthritis. Patient has meloxicam at home. Will have her rest the knee meloxicam and orthopedic follow-up.
*Radiology
Radiology exam reviewed: preliminary read by ED provider (Degenerative changes) and other (Negative ultrasound. Small Esquivel's cyst)
*Pulse Oximetry
Patient hypoxic: no
*Critical Care Note
Total Time (30-74mins, 75-104mins- exclusive of procedures): Not Applicable
ED Attending Note
-
Portions of this chart may have been created with voice recognition software.� Occasional wrong word or��sound alike� substitutions may have occurred due to the inherent limitations of voice recognition software.
Discharge Plan
Departure
Patient Disposition: Home (Routine Discharge)
Date of Disposition: 04/01/25
Time of Disposition: 12:01
Patient with high blood pressure during this ER visit?: Yes
Discharge Problem:
Left knee pain/Esquivel's cyst
Instructions: Esquivel's Cyst (DC), Knee pain - ED discharge instructions, BLOOD PRESSURE
Prescriptions:
No Action
sennosides [senna] 8.6 mg Tablet
17.2 mg PO QPM
lisinopril 20 mg Tablet
20 mg PO QPM
amlodipine 5 mg Tablet
5 mg PO QPM
aspirin 81 mg Tablet,Delayed Release (Dr/Ec)
81 mg PO QPM
levothyroxine 125 mcg Tablet
125 mcg PO QPM
ibuprofen 200 mg Tablet
400 mg PO Q6HPRN PRN (Reason: headache)
docusate sodium 100 mg Capsule
200 mg PO QPM
rosuvastatin 5 mg Tablet
5 mg PO QPM
pantoprazole [Protonix] 40 mg tablet,delayed release (DR/EC)
40 mg PO QPM
cephalexin 500 mg capsule
500 mg PO QID Qty: 16 0RF
Referrals:
Luis Reyes MD [Active] - Follow up in 5-7 days
Luma Olsen CRNP [Family Provider] -
Interventions
Interventions:
*Risk Screen - Suicide Last Done: 04/01/25 10:04
*General Assessment Last Done: 04/01/25 10:04
*Neglect/Abuse Screening Last Done: 04/01/25 11:36
*ED- Fall Risk Assessment Last Done: 04/01/25 11:35
*ED COVID-19 Vaccine History Last Done: 04/01/25 11:35
*Nursing Disposition Last Done: 04/01/25 12:26
ED- Cardiac Assessment Last Done: 04/01/25 11:37
ED- Pulmonary Assessment Last Done: 04/01/25 11:37
ED-Peripheral Vascular Assessment Last Done: 04/01/25 11:37
Discharge Date and Time
Discharge Date/Time: 04/01/25 12:26
Print Language: PUERTO RICAN
== END 2025-04-01 12:26 | disposition home or self-care (01) ==
LOC: EMR 09:59
PROVIDERS: EMERGENCY PHYSICIAN Emergency Medicine; FAMILY PHYSICIAN Nurse Practitioner
DX: M71.22 Synovial cyst of popliteal space [Baker], left knee (principal); I10 Essential (primary) hypertension; E78.00 Pure hypercholesterolemia, unspecified; E03.9 Hypothyroidism, unspecified
CPT/HCPCS: 99284; 73564; 93971

== ENCOUNTER 2025-05-12 19:45 | Inpatient (IN) | payer MEDICARE, OTHER, SELFPAY ==
[2025-05-12 15:40] VITALS: BP 138/84
[2025-05-12 15:47] VITALS: BMI 54.7
--- NOTE | 2025-05-12 16:20 | ED.GENMED ---
History of Present Illness
General
Chief Complaint: Fever
Time Seen by Provider: 05/12/25 15:45
History of Present Illness
History of Present Illness:
75-year-old female presents the emergency department for evaluation of fever and vomiting that began this morning. Has had issues with recurrent right lower extremity cellulitis secondary to lymphedema for the past 6 months and was admitted here
for this previously. Notes that her right leg became profoundly more erythematous and painful over the past 12 hours. Reports severe headache. Denies any trauma to the leg recently. No chest pain or shortness of breath
Past History
Past History
ED Past Medical History: HTN, Hypercholesterolemia and Hypothyroidism
Social History
Tobacco: Non-smoker
Alcohol: None
Personal:
Living: with family
Review of Systems
Review of Systems
Allergies reviewed?: Yes
All Other Systems: ROS reviewed and negative except as documented in HPI and ROS
Phy Exam
Physical Exam
Physical Exam:
GEN: Ill-appearing, no immediate distress
HEENT: Oral mucosa moist, no scleral icterus
Cardiac: Tachycardic, regular
Lung: No respiratory distress, no tachypnea, lungs clear
MSK: No gross deformity or injuries
Skin: Good color, no pallor or jaundice, severe circumferential erythema of the right lower extremity below the knee
Neuro: AO x3, moves all extremities freely
Psych: Calm, cooperative
Sepsis
Sepsis Screening
Sepsis Assessment: Sepsis
Sepsis Screen
Sepsis Screen: Sepsis
Date: 05/12/25
Time: 19:05
Course
Orders/Labs/Results
Orders:
Orders
05/12/25 16:18
0.9% Sodium Chloride 1000 ml [Nss] 1,000 ml IV BOLUS
Acetaminophen [Tylenol] 1,000 mg PO NOW STA
Ketorolac [Toradol] 15 mg IV NOW STA
Ondansetron Injectable [Zofran] 4 mg IV NOW STA
Venous Doppler Lwr Ext Rt [US Periph Venous LOWER Ext RT] Urgent
Comment:
Reason For Exam: R calf swelling
05/12/25 16:20
CeFAZolin 2 GRAM [Ancef] 2 grams in 10 ml IV NOW
05/12/25 16:26
Complete Blood Count/With Diff Urgent
Comprehensive Metabolic Panel Urgent
Lactic Acid Q4H
Comment: CANCEL 2nd LACTIC ACID IF 1st LACTIC ACID IS LESS THAN 2
Blood Culture Q30M
SALAZAR Source: Blood/Venous
Specimen Description:
Blood Culture Q30M
SALAZAR Source: Blood/Venous
Specimen Description:
05/12/25 18:57
Admit/Transfer Patient As Directed
Co-Sign Provider:
Level of Care: Inpatient admission
Assign to:: Medical/Surgical
Physician / Group: [email or web address]
Diagnosis: Sepsis due to RLE cellulitis
Reason for Hospitalization: Sepsis due to RLE cellulitis
Expected length of stay greater than two midnights?: Yes
ELOS- Estimated Length of Stay in days: 4
I certify the patient meets the requirements for IP care: Yes
05/12/25 20:30
Lactic Acid Q4H
Comment: CANCEL 2nd LACTIC ACID IF 1st LACTIC ACID IS LESS THAN 2
Abnormal Lab Results
05/12/25
16:26
WBC 13.1 H 10^3/uL
(4.8-10.8)
Abs Immat Gran (auto) 0.1 H 10^3/uL
(0-0.05)
Absolute Neuts (auto) 12.3 H 10^3/uL
(1.4-6.5)
Absolute Lymphs (auto) 0.3 L 10^3/uL
(1.2-3.4)
Neutrophils % 94.2 H %
(42.2-75.2)
Lymphocytes % 2.3 L %
(20.5-51.1)
BUN 18 H mg/dl
(7-17)
Glucose 126 H mg/dl
(70-99)
05/12/25 16:26
05/12/25 16:26
Vital Signs
Initial and Last Documented VS:
Initial Vital Signs
Temp Pulse Resp Pulse Ox
100.5 F H 102 18 98
05/12/25 15:35 05/12/25 15:35 05/12/25 15:35 05/12/25 15:35
Last Documented Vital Signs
Temp Pulse Resp BP Pulse Ox
103.0 F H 91 19 113/50 93
05/12/25 15:38 05/12/25 18:00 05/12/25 18:00 05/12/25 17:51 05/12/25 18:00
MDM/Problems Addressed
MDM/Problems Addressed:
Patient is rapidly developing sepsis due to right leg cellulitis, her case is complex given severe lymphedema thus will admit for IV antibiotics
*Pulse Oximetry
SaO2: 98
*Critical Care Note
Total Time (30-74mins, 75-104mins- exclusive of procedures): Not Applicable
ED Attending Note
-
Portions of this chart may have been created with voice recognition software.� Occasional wrong word or��sound alike� substitutions may have occurred due to the inherent limitations of voice recognition software.
Discharge Plan
Departure
Patient Disposition: Admit
Date of Disposition: 05/12/25
Time of Disposition: 17:46
Admit to: Med/Surg
Presentation/result/management discussed w/ accepting MD/DO: Hospitalist
Discharge Problem:
Cellulitis of leg, right, Sepsis
Prescriptions:
No Action
sennosides [senna] 8.6 mg Tablet
8.6 mg PO QPM
lisinopril 20 mg Tablet
20 mg PO QPM
amlodipine 5 mg Tablet
5 mg PO QPM
aspirin 81 mg Tablet,Delayed Release (Dr/Ec)
81 mg PO QPM
levothyroxine 125 mcg Tablet
125 mcg PO QPM
docusate sodium 100 mg Capsule
200 mg PO QPM
rosuvastatin 5 mg Tablet
5 mg PO QPM
pantoprazole [Protonix] 40 mg tablet,delayed release (DR/EC)
40 mg PO QPM
acetaminophen [Tylenol] 325 mg Tablet
650 mg PO DAILYPRN PRN (Reason: mild pain)
meloxicam 15 mg Tablet
15 mg PO DAILY PRN (Reason: knee pain)
vitamin B complex Tablet,Chewable
1 tab PO DAILY
Super Beets Supplement
2 gummy PO DAILY
Referrals:
Luma Olsen CRNP [Family Provider, Internal Medicine]
Interventions
Interventions:
*Risk Screen - Suicide Last Done: 05/12/25 15:47
*General Assessment Last Done: 05/12/25 15:47
*Neglect/Abuse Screening Last Done: 05/12/25 15:47
*ED- Fall Risk Assessment Last Done: 05/12/25 15:47
*ED COVID-19 Vaccine History Last Done: 05/12/25 15:47
ED- Neurological Assessment Last Done: 05/12/25 16:02
Discharge Date and Time
Print Language: KOSOVAN
[2025-05-12] MEDS: NSS 1000 IV ×2 (16:32→21:25)
[2025-05-12] MEDS: ZOFRAN 4 MG IV (16:32)
[2025-05-12] MEDS: TORADOL 15 MG IV (16:34)
[2025-05-12] MEDS: ANCEF 10 IV (16:35)
[2025-05-12] MEDS: TYLENOL 1000 MG PO (16:37)
[2025-05-12 16:47] LABS: % Basophils 0.2 % (0-2); % Eosinophils 0.5 % (0-6); % Immature Granulocytes 0.5 % (0-0.5); % Lymphocytes 2.3 % (20.5-51.1); % Monocytes 2.3 % (1.7-9.3); % Neutrophils 94.2 % (42.2-75.2); Absolute Eosinophils 0.1 10^3/uL (0-0.7); Absolute Immature Granulocytes 0.1 10^3/uL (0-0.05); Absolute Lymphocytes 0.3 10^3/uL (1.2-3.4); Absolute Monocytes 0.3 10^3/uL (0.1-0.6); Absolute Neutrophils 12.3 10^3/uL (1.4-6.5); Hemoglobin 12.9 g/dL (12.0-16.0); Mean Corp Hgb Conc. 33.1 g/dL (33.0-37.0); Mean Corpuscular Hgb 28.7 pg (27.0-31.0); Mean Corpuscular Volume 86.9 fL (81.0-99.0); Mean Platelet Volume 9.9 fL (7.4-10.4); Nucleated Red Blood Cells % 0 %; Platelet Count 138 10^3/uL (130-400); Red Blood Cell Count 4.49 10^6/uL (4.20-5.40); Red Cell Dist. Width 13.2 % (11.5-14.5); White Blood Cell Count 13.1 10^3/uL (4.8-10.8)
[2025-05-12 17:00] LABS: ALT (SGPT) < 10 U/L (0-35); AST (SGOT) 18 U/L (14-36); Albumin 4.1 g/dl (3.5-5.0); Alkaline Phosphatase 69 U/L (38-126); Blood Urea Nitrogen 18 mg/dl (7-17); Calcium 9.1 mg/dl (8.4-10.2); Carbon Dioxide 27 mmol/L (22-30); Chloride 107 mmol/L (98-107); Estimated Creatinine Clearance 98 ml/min; Glucose 126 mg/dl (70-99); Potassium 3.9 mmol/L (3.5-5.1); Sodium 140 mmol/L (135-145); Total Bilirubin 0.6 mg/dl (0.2-1.3); Total Protein 6.7 g/dl (6.3-8.2); eGFR > 60.00
[2025-05-12 17:01] LABS: Lactic Acid 1.3 mmol/L (0.7-2.0)
[2025-05-12 17:51] VITALS: BP 113/50
[2025-05-12 18:00] VITALS: BP 111/52
--- NOTE | 2025-05-12 18:39 | HPS.HSE ---
Family Physician
-
Family Physician: CHERIE eRsendiz
Chief Complaint
-
fever and vomiting
History of Present Illness
HPI
74F Extreme Obesity ( BMI 54) chr Leonel lymphedema seen at ER:
- evaluation of fever and vomiting that began this morning
- report prior HX recurrent right lower extremity cellulitis secondary to lymphedema for the past 6 months
- reports right leg became profoundly more erythematous and painful over the past 12 hours.
- Reports severe headache.
ROS:
Denies any trauma to the leg recently.
No chest pain or shortness of breath
Medical History
Past Medical History
Past Medical History: Reports HTN and Hypercholesterolemia; Denies CHF or NIDDM
Past Surgical History: Reports None
Social History
Tobacco: Non-smoker
Drug: None
Living: With Family
Family History
Family History: Not pertinent
Allergies / Home Medications
Allergies reflects when Allergies were last updated in [facility].
Home Medications with original date entered in [facility]
Allergy/Medication List:
Allergies
Allergy/AdvReac Type Severity Reaction Status Date / Time
iohexol [From Omnipaque] Allergy Hives Verified 01/13/25 08:14
levofloxacin [From Levaquin] Allergy Unknown Verified 01/13/25 08:14
Penicillins Allergy Swelling, Verified 01/13/25 08:14
throat
closing up
Home Medications
amlodipine 5 mg tablet 5 mg PO QPM 01/13/25
aspirin 81 mg tablet,delayed release 81 mg PO QPM 01/13/25
docusate sodium 100 mg capsule 200 mg PO QPM 01/13/25
doxycycline hyclate 100 mg capsule 100 mg PO BID 01/13/25
ibuprofen 200 mg tablet 400 mg PO Q6HPRN PRN HEADACHE 01/13/25
levothyroxine 125 mcg tablet 125 mcg PO QPM 02/20/25
lisinopril 20 mg tablet 20 mg PO QPM 01/13/25
pantoprazole 40 mg tablet,delayed release (Protonix) 40 mg PO QPM 01/13/25
rosuvastatin 5 mg tablet 5 mg PO QPM 01/13/25
sennosides 8.6 mg tablet (senna) 17.2 mg PO QPM 01/13/25
Review of Systems
-
Constitutional: Reports No Symptoms
EENT: Reports No Symptoms
Respiratory: Reports No Symptoms
Cardiac: Reports No Symptoms
Abdomen/GI: Reports See HPI
: Reports No Symptoms
Musculoskeletal: Reports No Symptoms
Skin: Reports See HPI
Neurological: Reports No Symptoms
Endocrine: Reports No Symptoms
Hematologic/Lymphatic: Reports No Symptoms
Psych: Reports No Symptoms
Physical Exam
Vital Signs
Vital Signs
Temp Pulse Resp BP Pulse Ox
103.0 F H 91 19 113/50 93
05/12/25 15:38 05/12/25 18:00 05/12/25 18:00 05/12/25 17:51 05/12/25 18:00
Physical Exam
General: Well Developed, Well Nourished, No Apparent Distress and Morbidly Obese (BMI 54- 55 )
HEENT: NormoCephalic, Moist mucous membranes and Atraumatic
Respiratory: Clear
Cardiac: S1/S2 and Regular Rhythm; No Murmur or Rub
GI: Soft, Non Tender, Non Distended and Normal Bowel Sounds; No Organomegaly
Rectal: Deferred by Provider
Musculoskeletal: No Clubbing, No Cyanosis and Other (Bilateral lymphedema. Right lower extremity warm with palpable pedal pulses. Erythema and induration below the knee with no wounds, purulence or fluctuance.)
Skin: No Rash
Neuro: Nonfocal/grossly intact
Psych: Calm
Laboratory Results
-
05/12/25 16:26
06/19/25 16:26
Laboratory Results
Lactic Acid 1.3 mmol/L (0.7-2.0) 05/12/25 16:26
Total Bilirubin 0.6 mg/dl (0.2-1.3) 05/12/25 16:26
AST 18 U/L (14-36) 05/12/25 16:26
ALT < 10 U/L (0-35) 05/12/25 16:26
Alkaline Phosphatase 69 U/L (38-126) 05/12/25 16:26
Data Reviewed
-
Ultrasound: Report Reviewed by me
Lab Data: Labs Reviewed by me
Old Records: Reviewed
Impression/Plan
-
Relevant VS
05/12/25
15:35 05/12/25
15:38 05/12/25
15:40
Temp 100.5 F H 103.0 F H
Temp route: Oral Oral
Pulse 102
Resp Rate 18
Blood pressure 138/84
SaO2 98
Relevant admission labs
05/12/25 05/12/25
16:26 20:30
WBC 13.1 H
Creatinine 0.6
eGFR > 60.00
Lactic Acid 1.3 Pending
US Periph Venous LOWER Ext RT
- No evidence of deep venous thrombosis of the right lower extremity.
Last hospitalist admission: 01/13/25 - 01/16/25
Discharge Diagnosis/Procedures: Right lower extremity cellulitis, underlying Chronic lymphedema
ASSESSMENT & PLAN
Sepsis due to RLE cellulitis - WBC 13k, T 103 PO, Nl LA
Underlying chr Rt. Leonel lymphedema.
HX inadequate response to prolonged outpatient antibiotic therapy including clindamycin, doxycycline and Bactrim
- NEG LEONEL DVT
- No prior MRSA screening
- BCx sent
- Observe on IV Cefazolin for now
- Monitor response closely while inpatient
Known PMHX
Extreme Obesity with BMI 56 affect all aspects of life
Reports independent with ambulatory function
At risk for ERWIN , no prior HX of sleep study
HLD on Rosuvastatin
Essential hypertension ; on [employer] lisinopril and amlodipine
Bilateral lower extremity edema/lymphedema with no symptoms of acute CHF - No prior history of CHF - most recent echocardiogram with preserved biventricular function.
Hypothyroidism on LT4
DVT Px: LMWH
Full code
IP MS
[2025-05-12 20:28] VITALS: BP 145/60; BMI 55.6
[2025-05-12] MEDS: LOVENOX 60 MG SC (21:21)
[2025-05-12] MEDS: TYLENOL 650 MG PO (21:25)
[2025-05-12] MEDS: SYNTHROID 125 MCG PO (22:12)
[2025-05-12] MEDS: ZESTRIL 20 MG PO (22:12)
[2025-05-12] MEDS: LOW STRENGTH ASPIRIN 81 MG PO (22:13)
[2025-05-12] MEDS: NORVASC 5 MG PO (22:13)
[2025-05-12 23:21] VITALS: BP 126/48
[2025-05-13] MEDS: ANCEF 10 IV ×4 (00:11→23:45)
[2025-05-13 01:05] LABS: Lactic Acid 1.2 mmol/L (0.7-2.0)
[2025-05-13] MEDS: TYLENOL 650 MG PO (03:25)
[2025-05-13 06:58] LABS: Urine Albumin 2+ (Neg - Trace); Urine Bilirubin Negative (Negative); Urine Character Clear (Clear); Urine Color Yellow; Urine Glucose Negative (Negative); Urine Ketone 1+ (Negative); Urine Leukocyte 1+ (Negative); Urine Nitrite Negative (Negative); Urine Occult Blood Negative (Negative); Urine Specific Gravity 1.025 (<1.030); Urine Urobilinogen Negative (Neg - 1+)
[2025-05-13 07:00] VITALS: BP 127/49
[2025-05-13 07:14] LABS: Hematocrit 34.7 % (37.0-47.0); Hemoglobin 11.4 g/dL (12.0-16.0); Mean Corp Hgb Conc. 32.9 g/dL (33.0-37.0); Mean Corpuscular Hgb 29.1 pg (27.0-31.0); Mean Corpuscular Volume 88.5 fL (81.0-99.0); Mean Platelet Volume 9.8 fL (7.4-10.4); Platelet Count 138 10^3/uL (130-400); Red Blood Cell Count 3.92 10^6/uL (4.20-5.40); Red Cell Dist. Width 13.7 % (11.5-14.5); White Blood Cell Count 17.4 10^3/uL (4.8-10.8)
[2025-05-13 07:31] LABS: Lactic Acid 1.5 mmol/L (0.7-2.0)
[2025-05-13 07:41] LABS: ALT (SGPT) < 10 U/L (0-35); AST (SGOT) 20 U/L (14-36); Albumin 3.3 g/dl (3.5-5.0); Alkaline Phosphatase 52 U/L (38-126); Blood Urea Nitrogen 26 mg/dl (7-17); Calcium 8.4 mg/dl (8.4-10.2); Carbon Dioxide 25 mmol/L (22-30); Chloride 110 mmol/L (98-107); Estimated Creatinine Clearance 75 ml/min; Glucose 109 mg/dl (70-99); Potassium 4.4 mmol/L (3.5-5.1); Sodium 140 mmol/L (135-145); Total Bilirubin 0.6 mg/dl (0.2-1.3); Total Protein 5.6 g/dl (6.3-8.2); eGFR > 60.00
[2025-05-13 07:44] LABS: Urine Squamous Cell 16-20 /LPF (Few)
[2025-05-13 07:45] LABS: Urine Bacteria Moderate (Negative); Urine Red Blood Cell 0-2 /HPF (0-2)
[2025-05-13] MEDS: LOVENOX 60 MG SC ×2 (07:45→21:20)
[2025-05-13] MEDS: MOBIC 15 MG PO (09:50)
[2025-05-13] MEDS: ULTRAM 25 MG PO (11:43)
--- NOTE | 2025-05-13 12:22 | W.PN.HOSP.TC ---
Today's Communication/Plan
-
Continue IV cefazolin
Follow-up on the blood culture
Trend WBC and fever curve
Assessment / Plan
Assessment / Plan
General: Well Developed, Well Nourished, No Apparent Distress and Morbidly Obese (BMI 54- 55 )
HEENT: NormoCephalic, Moist mucous membranes and Atraumatic
Respiratory: Clear
Cardiac: S1/S2 and Regular Rhythm; No Murmur or Rub
GI: Soft, Non Tender, Non Distended and Normal Bowel Sounds; No Organomegaly
Rectal: Deferred by Provider
Musculoskeletal: No Clubbing, No Cyanosis and Other (Bilateral lymphedema. Right lower extremity warm with palpable pedal pulses. Erythema and induration below the knee with no wounds, purulence or fluctuance.)
Skin: No Rash
Neuro: Nonfocal/grossly intact
Psych: Calm
Sepsis secondary to right lower extremity cellulitis POA
Bilateral lower extremity chronic lymphedema
- Ultrasound Doppler negative for DVT
- No prior MRSA screening
- BCx sent to lab and pending. Urine culture in lab.
- Observe on IV Cefazolin for now
- Monitor response closely while inpatient
Extreme Obesity with BMI 56 affect all aspects of life
Reports independent with ambulatory function
At risk for ERWIN , no prior HX of sleep study
HLD on Rosuvastatin
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
Bilateral lower extremity edema/lymphedema with no symptoms of acute CHF - No prior history of CHF - most recent echocardiogram with preserved biventricular function.
Hypothyroidism on LT4
DVT Px: LMWH
Full code
Anticipated Discharge: > 48 hours
Subjective/Interval History
-
Date of Service: May 13, 2025
States a mild headache
States had severe fever overnight
Objective Data
-
Labs:
Laboratory Results
05/13/25
06:58
WBC 17.4 H
Hgb 11.4 L
Hct 34.7 L
Plt Count 138
Sodium 140
Potassium 4.4
Chloride 110 H
Carbon Dioxide 25
BUN 26 H
Creatinine 0.8
Glucose 109 H
Calcium 8.4
Total Bilirubin 0.6
AST 20
ALT < 10
Alkaline Phosphatase 52
Vital Signs:
Vital Signs
Temp Pulse Resp BP Pulse Ox
99.4 F 71 18 127/49 96
05/13/25 07:00 05/13/25 07:00 05/13/25 07:00 05/13/25 07:00 05/13/25 10:50
I&O
05/12/25 05/13/25 05/14/25
06:59 06:59 06:59
Intake Total 840 / 840
Balance 840 / 840
[2025-05-13] MEDS: TORADOL 10 MG PO (12:50)
--- NOTE | 2025-05-13 14:14 | CM ---
Alert awake oriented independent patient who lives with her Luis Alberto in a 1 story home with 2 steps to enter. She is oindpedent in driveing and all ADLs.No adaptive devices.
No VN/SNF hx
Pharmacy [facility]
PCP Dr Olsen in [place]
PLAN HOme no needs
[2025-05-13 15:00] VITALS: BP 108/36
--- NOTE | 2025-05-13 15:19 | PTOTSP ---
Attempted to see patient for PT evaluation - patient declined, stating she has been independently getting herself to/from the bathroom while here and attending Outpatient PT for lymphedema. Patient denied concerns regarding mobility upon return
home. PT will sign off at this time; patient aware our services are available if needed.
[2025-05-13 16:42] VITALS: BP 108/36
[2025-05-13] MEDS: SENOKOT 8.6 MG PO (17:06)
[2025-05-13] MEDS: ZESTRIL 20 MG PO (17:06)
[2025-05-13] MEDS: ASPIR LOW (ENTERIC COATED) 81 MG PO (17:06)
[2025-05-13] MEDS: PROTONIX 40 MG PO (17:06)
[2025-05-13] MEDS: SYNTHROID 125 MCG PO (17:06)
[2025-05-13] MEDS: COLACE 200 MG PO (17:06)
[2025-05-13] MEDS: CRESTOR 5 MG PO (17:06)
[2025-05-13] MEDS: NORVASC 5 MG PO (17:06)
[2025-05-13] MEDS: BENADRYL 12.5 MG IV (18:01)
[2025-05-13] MEDS: TORADOL 15 MG IV (18:02)
[2025-05-13] MEDS: REGLAN 10 MG IV (18:02)
[2025-05-13 23:09] VITALS: BP 126/63
[2025-05-14] MEDS: TYLENOL 650 MG PO ×2 (01:44→17:12)
[2025-05-14 07:00] LABS: % Basophils 0.3 % (0-2); % Eosinophils 1.9 % (0-6); % Immature Granulocytes 0.8 % (0-0.5); % Lymphocytes 8.1 % (20.5-51.1); % Monocytes 3.6 % (1.7-9.3); % Neutrophils 85.3 % (42.2-75.2); Absolute Eosinophils 0.2 10^3/uL (0-0.7); Absolute Immature Granulocytes 0.1 10^3/uL (0-0.05); Absolute Lymphocytes 0.9 10^3/uL (1.2-3.4); Absolute Monocytes 0.4 10^3/uL (0.1-0.6); Absolute Neutrophils 9.5 10^3/uL (1.4-6.5); Hematocrit 31.6 % (37.0-47.0); Hemoglobin 10.5 g/dL (12.0-16.0); Mean Corp Hgb Conc. 33.2 g/dL (33.0-37.0); Mean Corpuscular Volume 87.3 fL (81.0-99.0); Mean Platelet Volume 9.9 fL (7.4-10.4); Nucleated Red Blood Cells % 0 %; Platelet Count 112 10^3/uL (130-400); Red Blood Cell Count 3.62 10^6/uL (4.20-5.40); Red Cell Dist. Width 13.7 % (11.5-14.5); White Blood Cell Count 11.1 10^3/uL (4.8-10.8)
[2025-05-14 07:24] LABS: Blood Urea Nitrogen 24 mg/dl (7-17); Calcium 8.4 mg/dl (8.4-10.2); Carbon Dioxide 27 mmol/L (22-30); Chloride 110 mmol/L (98-107); Estimated Creatinine Clearance 75 ml/min; Glucose 89 mg/dl (70-99); Potassium 4.2 mmol/L (3.5-5.1); Sodium 140 mmol/L (135-145); eGFR > 60.00
[2025-05-14 07:30] VITALS: BP 132/50
[2025-05-14] MEDS: LOVENOX 60 MG SC ×2 (08:19→19:18)
[2025-05-14] MEDS: ANCEF 10 IV ×3 (08:20→23:49)
[2025-05-14] MEDS: DESENEX/MITRAZOL/ZEASORB 1 APPLIC TOPICAL ×2 (08:26→19:19)
--- NOTE | 2025-05-14 11:26 | W.PN.HOSP.TC ---
Today's Communication/Plan
-
Continue with IV antibiotic
Follow blood culture
Trend WBC and fever curve
Assessment / Plan
Assessment / Plan
General: Well Developed, Well Nourished, No Apparent Distress and Morbidly Obese (BMI 54- 55 )
HEENT: NormoCephalic, Moist mucous membranes and Atraumatic
Respiratory: Clear
Cardiac: S1/S2 and Regular Rhythm; No Murmur or Rub
GI: Soft, Non Tender, Non Distended and Normal Bowel Sounds; No Organomegaly
Rectal: Deferred by Provider
Musculoskeletal: No Clubbing, No Cyanosis and Other (Bilateral lymphedema. Right lower extremity warm with palpable pedal pulses. Erythema and induration below the knee with no wounds, purulence or fluctuance.)
Skin: No Rash
Neuro: Nonfocal/grossly intact
Psych: Calm
Sepsis secondary to right lower extremity cellulitis POA
Bilateral lower extremity chronic lymphedema
- Ultrasound Doppler negative for DVT
- Preliminary blood cultures are negative urine culture in lab.
- Observe on IV Cefazolin for now
- Monitor response closely while inpatient monitor WBC and fever curve
Migraine headaches
Status post Toradol, Reglan and Benadryl
Resolved
Extreme Obesity with BMI 56 affect all aspects of life
Reports independent with ambulatory function
At risk for ERWIN , no prior HX of sleep study
HLD on Rosuvastatin
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
Bilateral lower extremity edema/lymphedema with no symptoms of acute CHF - No prior history of CHF - most recent echocardiogram with preserved biventricular function.
Hypothyroidism on LT4
DVT Px: LMWH
Full code
Anticipated Discharge: Within 24 hours
Subjective/Interval History
-
Date of Service: May 14, 2025
Spiked a fever overnight
States headache has resolved
Objective Data
-
Labs:
Laboratory Results
05/14/25
06:42
WBC 11.1 H
Hgb 10.5 L
Hct 31.6 L
Plt Count 112 L
Sodium 140
Potassium 4.2
Chloride 110 H
Carbon Dioxide 27
BUN 24 H
Creatinine 0.8
Glucose 89
Calcium 8.4
Vital Signs:
Vital Signs
Temp Pulse Resp BP Pulse Ox
98.3 F 77 18 132/50 95
05/14/25 07:30 05/14/25 07:30 05/14/25 07:30 05/14/25 07:30 05/14/25 07:30
I&O
05/13/25 05/14/25 05/15/25
06:59 06:59 06:59
Intake Total 840 / 840 600 / 600
Balance 840 / 840 600 / 600
[2025-05-14 15:32] VITALS: BP 132/54
[2025-05-14] MEDS: SENOKOT 8.6 MG PO (17:11)
[2025-05-14] MEDS: ASPIR LOW (ENTERIC COATED) 81 MG PO (17:11)
[2025-05-14] MEDS: COLACE 200 MG PO (17:11)
[2025-05-14] MEDS: NORVASC 5 MG PO (17:12)
[2025-05-14] MEDS: PROTONIX 40 MG PO (17:12)
[2025-05-14] MEDS: SYNTHROID 125 MCG PO (17:12)
[2025-05-14] MEDS: ZESTRIL 20 MG PO (17:12)
[2025-05-14] MEDS: CRESTOR 5 MG PO (17:12)
[2025-05-14] MEDS: SENNA SYRUP 8.8 MG PO (17:50)
[2025-05-14 23:17] VITALS: BP 120/44
[2025-05-15 07:02] LABS: % Basophils 0.1 % (0-2); % Eosinophils 4.1 % (0-6); % Immature Granulocytes 0.4 % (0-0.5); % Lymphocytes 6.5 % (20.5-51.1); % Monocytes 6.3 % (1.7-9.3); % Neutrophils 82.6 % (42.2-75.2); Absolute Eosinophils 0.3 10^3/uL (0-0.7); Absolute Lymphocytes 0.5 10^3/uL (1.2-3.4); Absolute Monocytes 0.5 10^3/uL (0.1-0.6); Hematocrit 30.7 % (37.0-47.0); Mean Corp Hgb Conc. 32.6 g/dL (33.0-37.0); Mean Corpuscular Hgb 28.9 pg (27.0-31.0); Mean Corpuscular Volume 88.7 fL (81.0-99.0); Mean Platelet Volume 10.6 fL (7.4-10.4); Nucleated Red Blood Cells % 0 %; Platelet Count 118 10^3/uL (130-400); Red Blood Cell Count 3.46 10^6/uL (4.20-5.40); Red Cell Dist. Width 13.2 % (11.5-14.5); White Blood Cell Count 7.3 10^3/uL (4.8-10.8)
[2025-05-15 07:33] VITALS: BP 149/70
[2025-05-15 07:35] LABS: Blood Urea Nitrogen 14 mg/dl (7-17); Carbon Dioxide 27 mmol/L (22-30); Chloride 110 mmol/L (98-107); Estimated Creatinine Clearance 99 ml/min; Glucose 95 mg/dl (70-99); Potassium 3.8 mmol/L (3.5-5.1); Sodium 139 mmol/L (135-145); eGFR > 60.00
[2025-05-15] MEDS: LOVENOX 60 MG SC (08:16)
[2025-05-15] MEDS: ANCEF 10 IV (08:16)
[2025-05-15] MEDS: DESENEX/MITRAZOL/ZEASORB 1 APPLIC TOPICAL (08:17)
--- NOTE | 2025-05-15 12:08 | W.PN.HOSP.TC ---
Today's Communication/Plan
-
po abx on dc
op pcp /fu
Assessment / Plan
Assessment / Plan
General: Well Developed, Well Nourished, No Apparent Distress and Morbidly Obese (BMI 54- 55 )
HEENT: NormoCephalic, Moist mucous membranes and Atraumatic
Respiratory: Clear
Cardiac: S1/S2 and Regular Rhythm; No Murmur or Rub
GI: Soft, Non Tender, Non Distended and Normal Bowel Sounds; No Organomegaly
Rectal: Deferred by Provider
Musculoskeletal: No Clubbing, No Cyanosis and Other (Bilateral lymphedema. Right lower extremity warm with palpable pedal pulses. Erythema and induration below the knee with no wounds, purulence or fluctuance.)
Skin: No Rash
Neuro: Nonfocal/grossly intact
Psych: Calm
Sepsis secondary to right lower extremity cellulitis POA
Bilateral lower extremity chronic lymphedema
- Ultrasound Doppler negative for DVT
- blood cultures remains are negative. urine culture no growth
- Observe on IV Cefazolin for now and transition to Keflex. D/w with pharmacy based on weight 500mg QID appropriate dosing
- Monitor response closely while inpatient monitor WBC and fever curve. leukocytosis resolved. remains afebrile. Compresison w/compression stocking.
Migraine headaches
Status post Toradol, Reglan and Benadryl
Resolved
Extreme Obesity with BMI 56 affect all aspects of life
Reports independent with ambulatory function
At risk for ERWIN , no prior HX of sleep study
HLD on Rosuvastatin
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
Bilateral lower extremity edema/lymphedema with no symptoms of acute CHF - No prior history of CHF - most recent echocardiogram with preserved biventricular function.
Hypothyroidism on LT4
DVT Px: LMWH
Full code
PT-home
More than 30 minutes spent in discharge including
Final examination of the patient
Summarizing hospital stay
Instructions for continuing care to all relevant caregivers
Preparation of discharge records, prescriptions, and referral forms
Total time spent (in minutes): 52
Anticipated Discharge: Today
Subjective/Interval History
-
Date of Service: May 15, 2025
remains afebrile
no headache
Objective Data
-
Labs:
Laboratory Results
05/15/25
05:54
WBC 7.3
Hgb 10.0 L
Hct 30.7 L
Plt Count 118 L
Sodium 139
Potassium 3.8
Chloride 110 H
Carbon Dioxide 27
BUN 14
Creatinine 0.6
Glucose 95
Calcium 8.0 L
Vital Signs:
Vital Signs
Temp Pulse Resp BP Pulse Ox
99.4 F 71 18 149/70 98
05/15/25 07:33 05/15/25 07:33 05/15/25 07:33 05/15/25 07:33 05/15/25 07:33
I&O
05/14/25 05/15/25 05/16/25
06:59 06:59 06:59
Intake Total 600 / 600 1160 / 1160
Balance 600 / 600 1160 / 1160
--- NOTE | 2025-05-15 12:13 | W.DCSUMMARY ---
Discharge Summary
Discharge Data
Date of Admission: 05/12/25
Date of Discharge: 05/15/25
-
Pending Results: No
Hospital Course
75-year-old female past medical history of morbid obesity excess calories, hyperlipidemia, hypertension, chronic lower extremity lymphedema hypothyroidism was presented with right lower extremity redness. Patient was found to be septic secondary to
right lower extremity cellulitis with some concern for venous dermatitis. Patient did spike significant high fevers. Blood cultures were checked and were found to be negative. Lower extremity Doppler was found to be negative for DVT. Urine
culture with no growth. Patient was started on IV cefazolin. Patient leukocytosis resolved. sHe remained afebrile. Patient also complained of migraine and received IV migraine cocktail. Headache resolved. Tolerating diet. Vital signs stable.
Patient with transition from IV cefazolin to p.o. Keflex and recommend to continue to follow-up with primary doctor.
Discharge Plan
-
Patient Disposition: Home (Routine Discharge)
Discharge Diagnosis/Procedures: Sepsis secondary to right lower extremity cellulitis
Condition: Fair
Diet: As tolerated
Activity: As tolerated
Driving Restrictions: As prior to admission
Referrals:
Luma Olsen CRNP [Family Provider, Internal Medicine] - in less than 1 week
Prescriptions:
New
cephalexin 500 mg capsule
500 mg PO QID 5 Days Qty: 20 0RF
Continued
sennosides [senna] 8.6 mg Tablet
8.6 mg PO QPM
lisinopril 20 mg Tablet
20 mg PO QPM
amlodipine 5 mg Tablet
5 mg PO QPM
aspirin 81 mg Tablet,Delayed Release (Dr/Ec)
81 mg PO QPM
levothyroxine 125 mcg Tablet
125 mcg PO QPM
docusate sodium 100 mg Capsule
200 mg PO QPM
rosuvastatin 5 mg Tablet
5 mg PO QPM
pantoprazole [Protonix] 40 mg tablet,delayed release (DR/EC)
40 mg PO QPM
acetaminophen [Tylenol] 325 mg Tablet
650 mg PO DAILYPRN PRN (Reason: mild pain)
meloxicam 15 mg Tablet
15 mg PO DAILY PRN (Reason: knee pain)
vitamin B complex Tablet,Chewable
1 tab PO DAILY
Super Beets Supplement
2 gummy PO DAILY
Discharge Orders:
Discharge Patient (As Directed); Ordered 05/15/25
Ordered By: Good Garrison
Discharge Date and Time
Print Language: KHMER
[2025-05-15 13:46] VITALS: BP 124/61
--- NOTE | 2025-05-15 15:31 | CM ---
Patient with Dx Sepsis secondary to RLE cellulitis. Room air. PT Eval; Therapy not warranted.
Met with patient who was preparing for discharge.
The patient says she feels ready for discharge home today. IMM completed.
She declined the offer for VN.
The was in the room and will provide transport home today.
No CM d/c needs identified.
Plan home today.
== END 2025-05-15 14:52 | disposition home or self-care (01) | DRG 872 ==
LOC: 4 EAST ACU 19:45
PROVIDERS: Physician Assistant; ADMITTING PHYSICIAN Internal Medicine; ATTENDING PHYSICIAN Hospitalist; EMERGENCY PHYSICIAN Emergency Medicine; FAMILY PHYSICIAN Nurse Practitioner
DX: A41.9 Sepsis, unspecified organism (principal); L03.115 Cellulitis of right lower limb; Z68.43 Body mass index [BMI] 50.0-59.9, adult; E03.9 Hypothyroidism, unspecified; E66.01 Morbid (severe) obesity due to excess calories; I10 Essential (primary) hypertension; I89.0 Lymphedema, not elsewhere classified; E78.00 Pure hypercholesterolemia, unspecified; G43.909 Migraine, unspecified, not intractable, without status migrainosus; Z79.890 Hormone replacement therapy
CPT/HCPCS: 70450; 80048; 80053; 81003; 81015; 83605; 85025; 85027; 87040; 87086; 93971; 96361; 96374; 96375; 99284

== ENCOUNTER 2025-05-27 17:53 | Inpatient (IN) | payer MEDICARE, OTHER, SELFPAY ==
[2025-05-27 14:57] VITALS: BMI 55.5
[2025-05-27 14:59] VITALS: BP 169/75
[2025-05-27 15:17] LABS: Hematocrit 37.4 % (37.0-47.0); Hemoglobin 12.6 g/dL (12.0-16.0); Mean Corp Hgb Conc. 33.7 g/dL (33.0-37.0); Mean Corpuscular Volume 86.2 fL (81.0-99.0); Nucleated Red Blood Cells % 0 %; Platelet Count 259 10^3/uL (130-400); Red Cell Dist. Width 13.5 % (11.5-14.5)
[2025-05-27 15:40] LABS: ALT (SGPT) < 10 U/L (0-35); AST (SGOT) 19 U/L (14-36); Albumin 4.0 g/dl (3.5-5.0); Alkaline Phosphatase 76 U/L (38-126); Blood Urea Nitrogen 13 mg/dl (7-17); Calcium 9.3 mg/dl (8.4-10.2); Carbon Dioxide 24 mmol/L (22-30); Chloride 106 mmol/L (98-107); Glucose 135 mg/dl (70-99); Potassium 4.4 mmol/L (3.5-5.1); Sodium 139 mmol/L (135-145); Total Protein 6.7 g/dl (6.3-8.2); eGFR > 60.00
--- NOTE | 2025-05-27 17:08 | ED.GENMED ---
History of Present Illness
General
Chief Complaint: Skin Problem
Source: patient
Exam Limitations: none
Time Seen by Provider: 05/27/25 16:01
Nursing documentation reviewed up to this point in time: agreed with
History of Present Illness
History of Present Illness:
Patient to ED [facility] complaint of increasing pain, redness, swelling to RLE. SHe was admitted here with cellulitis to RLE 05/12-05/15. Treated with ancef and the transitioned to Keflex. SHe reports she continuew to take Keflex 500mg qid. Initially
she reported slow improvement to right leg. States the calf has slowly become more painful and hard. Today reports rapid progression of erythema. She denies fever/chills. To ED accompanied by family.
Past History
Past History
ED Past Medical History: HTN, Hypercholesterolemia and Hypothyroidism
Social History
Tobacco: Non-smoker
Alcohol: None
Personal:
Living: with family
Review of Systems
Review of Systems
Allergies reviewed?: Yes
All Other Systems: ROS reviewed and negative except as documented in HPI and ROS
Constitutional: Reports no symptoms
EENT: Reports no symptoms
Respiratory: Reports no symptoms
Cardiac: Reports no symptoms
ABD/GI: Reports no symptoms
: Reports no symptoms
Musculoskeletal: Reports other (right lower leg redness swelling pain)
Skin: Reports other (erythema, pain, swelling right lower leg)
Neurological: Reports no symptoms
Psychiatric: Reports no symptoms
Phy Exam
General Physical Exam
General Presentation: mild distress
General age: appears stated age
General Skin: warm
General Habitus: normal
General Mental: alert
Cardiovascular Exam
Cardiovascular Exam: regular rate/rhythm and other (lymphedema RLE)
Neurological Exam
Neurological Exam: alert and oriented x3
Musculoskeletal Exam
Musculoskeletal Exam: full ROM and neuro vasc intact
Skin Exam
Skin Exam: other (erythema RLE. Initially limited to calf, rapidly expanding)
Psychiatric Exam
Psychiatric Exam: normal mood/affect
Course
Orders/Labs/Results
Orders:
Orders
05/27/25 Dinner
Cholesterol Lowering
At Your Request: Full Participation
Does patient need a safe tray?: No
Cholesterol Lowering: Sodium, 2 Gram
05/27/25 15:03
Periph Venous Lwr Ext Rt US [US Periph Venous LOWER Ext RT] Urgent
Comment:
Reason For Exam: calf pain/tenderness/swelling
05/27/25 15:09
Complete Blood Count/With Diff Urgent
Comprehensive Metabolic Panel Urgent
05/27/25 17:17
Vancomycin [Vancocin] 2,000 mg 0.9% Sodium Chloride 500 ml [Nss] 500 ml IV NOW
05/27/25 17:32
Admit/Transfer Patient As Directed
Co-Sign Provider:
Level of Care: Inpatient admission
Assign to:: Medical/Surgical
Physician / Group: [email or web address]
Diagnosis: Recurrent and worsening RLE cellulitis
Reason for Hospitalization: Recurrent and worsening RLE cellulitis
Expected length of stay greater than two midnights?: Yes
ELOS- Estimated Length of Stay in days: 3
I certify the patient meets the requirements for IP care: Yes
05/27/25 17:35
Code Status As Directed
Resuscitation Status: Full Code
05/27/25 18:00
CeFAZolin 2 GRAM [Ancef] 2 grams in 10 ml IV Q8H
05/27/25 18:08
Lactic Acid Urgent
Blood Culture Urgent
SALAZAR Source: Blood/Venous
Specimen Description:
05/27/25 18:50
Amlodipine [Norvasc] 5 mg PO QPM
Aspirin Low Dose EC [Aspir Low (Enteric Coated)] 81 mg PO QPM
Bisacodyl [Dulcolax] 10 mg RECTAL [id number] PRN
Docusate Sodium [Colace] 200 mg PO QPM
Docusate W/Senna [Senokot-S] 1 tablet PO BIDPRN PRN
Enoxaparin Sodium [Lovenox] 40 mg SC QPM
Levothyroxine [Synthroid] 125 mcg PO QPM
Lisinopril [Zestril] 20 mg PO QPM
Polyethylene Glycol Powder [Miralax] 17 grams PO DAILYPRN PRN
Rosuvastatin Calcium [Crestor] 5 mg PO QPM
05/27/25 18:50
Activity As Directed
Activity Level: With Assistance
Vital Signs As Directed
Frequency: Per unit guidelines
DX Deep Vein Thrombosis Video Routine
05/28/25 06:00
Complete Blood Count/No Diff IN AM
Comprehensive Metabolic Panel IN AM
Abnormal Lab Results
05/27/25
15:09
WBC 11.2 H 10^3/uL
(4.8-10.8)
Absolute Neuts (auto) 9.5 H 10^3/uL
(1.4-6.5)
Absolute Lymphs (auto) 0.8 L 10^3/uL
(1.2-3.4)
Neutrophils % 84.7 H %
(42.2-75.2)
Lymphocytes % 7.3 L %
(20.5-51.1)
Glucose 135 H mg/dl
(70-99)
05/27/25 15:09
05/27/25 15:09
Vital Signs
Initial and Last Documented VS:
Initial Vital Signs
Temp Pulse Resp BP Pulse Ox
99.3 F 85 18 169/75 98
05/27/25 14:59 05/27/25 14:59 05/27/25 14:59 05/27/25 14:59 05/27/25 14:59
Last Documented Vital Signs
Temp Pulse Resp BP Pulse Ox
100.2 F 78 22 166/71 98
05/27/25 19:08 05/27/25 20:14 05/27/25 19:08 05/27/25 20:14 05/27/25 19:08
*Radiology
Radiology exam reviewed: radiology read reviewed
*Pulse Oximetry
SaO2: 98
Oxygen Mode of Delivery: Room air
Patient hypoxic: no
*Critical Care Note
Total Time (30-74mins, 75-104mins- exclusive of procedures): Not Applicable
Update Note
Update Note:
Patient to ED with rapidly expanding erythema, pain, swelling to RLE. Recently treated inpatient for cellulitis. No wounds noted. Currently taking Keflex 500mg qid, reports compliance. US RLE neg for DVT. Labs reviewed. WBC 11.7, lactic
pending. She remains afebrile. Will admit to hospitalist. Vancomycin started i ED.
ED Attending Note
-
Portions of this chart may have been created with voice recognition software.� Occasional wrong word or��sound alike� substitutions may have occurred due to the inherent limitations of voice recognition software.
Discharge Plan
Departure
Patient Disposition: Admit
Date of Disposition: 05/27/25
Time of Disposition: 17:17
Presentation/result/management discussed w/ accepting MD/DO: Hospitalist
Condition: Fair
Covid-19: Not Applicable
Discharge Problem:
Cellulitis of leg, right
Interventions
Interventions:
*Risk Screen - Suicide Last Done: 05/27/25 19:20
*General Assessment Last Done: 05/27/25 17:58
*Neglect/Abuse Screening Last Done: 05/27/25 14:59
*ED- Fall Risk Assessment Last Done: 05/27/25 17:58
*ED COVID-19 Vaccine History Last Done: 05/27/25 19:20
*Nursing Disposition Last Done: 05/27/25 18:00
ED-Skin Assessment Last Done: 05/27/25 19:09
Discharge Date and Time
Discharge Date/Time: 05/27/25 19:11
--- NOTE | 2025-05-27 17:23 | HPS.HSE ---
Family Physician
-
Family Physician: CHERIE Resendiz
Chief Complaint
-
recurrent and worsening Rt Leonel infection
History of Present Illness
74F Extreme Obesity (BMI 54) chr Leonel lymphedema, recent sepsis due to Leonel cellultis responded to IV Cefazollin seen at ER:
- reports increasing pain, redness, swelling to RLE.
- Recent cellulitis to RLE 05/12-05/15 whic was reated with IV Cefazolin + then transitioned to PO Keflex
- reports she continuew to take Keflex 500mg qid
- Initially she reported slow improvement to right leg, then the calf has slowly become more painful and hard.
- Today reports rapid progression of erythema.
- denies fever/chills.
Medical History
Past Medical History
Past Medical History: Reports HTN and Hypercholesterolemia; Denies CHF or NIDDM
Past Surgical History: Reports None
Social History
Tobacco: Non-smoker
Drug: None
Living: With Family
Family History
Family History: Not pertinent
Allergies / Home Medications
Allergies reflects when Allergies were last updated in [employer].
Home Medications with original date entered in [employer]
Allergy/Medication List:
Allergies
Allergy/AdvReac Type Severity Reaction Status Date / Time
iohexol [From Omnipaque] Allergy Hives Verified 01/13/25 08:14
levofloxacin [From Levaquin] Allergy Unknown Verified 01/13/25 08:14
Penicillins Allergy Swelling, Verified 01/13/25 08:14
throat
closing up
Home Medications
amlodipine 5 mg tablet 5 mg PO QPM 01/13/25
aspirin 81 mg tablet,delayed release 81 mg PO QPM 01/13/25
docusate sodium 100 mg capsule 200 mg PO QPM 01/13/25
doxycycline hyclate 100 mg capsule 100 mg PO BID 01/13/25
ibuprofen 200 mg tablet 400 mg PO Q6HPRN PRN HEADACHE 01/13/25
levothyroxine 125 mcg tablet 125 mcg PO QPM 01/13/25
lisinopril 20 mg tablet 20 mg PO QPM 01/13/25
pantoprazole 40 mg tablet,delayed release (Protonix) 40 mg PO QPM 01/13/25
rosuvastatin 5 mg tablet 5 mg PO QPM 01/13/25
sennosides 8.6 mg tablet (senna) 17.2 mg PO QPM 01/13/25
Review of Systems
-
Constitutional: Reports No Symptoms
EENT: Reports No Symptoms
Respiratory: Reports No Symptoms
Cardiac: Reports No Symptoms
Abdomen/GI: Reports No Symptoms
: Reports No Symptoms
Musculoskeletal: Reports No Symptoms
Skin: Reports See HPI
Neurological: Reports No Symptoms
Endocrine: Reports No Symptoms
Hematologic/Lymphatic: Reports No Symptoms
Psych: Reports No Symptoms
Physical Exam
Vital Signs
Vital Signs
Temp Pulse Resp BP Pulse Ox
99.3 F 85 18 169/75 98
05/27/25 14:59 05/27/25 14:59 05/27/25 14:59 05/27/25 14:59 05/27/25 17:16
Physical Exam
General: Well Developed, Well Nourished, No Apparent Distress and Morbidly Obese (BMI 54- 55 )
HEENT: NormoCephalic, Moist mucous membranes and Atraumatic
Respiratory: Clear
Cardiac: S1/S2 and Regular Rhythm; No Murmur or Rub
GI: Soft, Non Tender, Non Distended and Normal Bowel Sounds; No Organomegaly
Rectal: Deferred by Provider
Musculoskeletal: No Clubbing, No Cyanosis and Other (Bilateral lymphedema. Right lower extremity warm with palpable pedal pulses. Erythema and induration below the knee with no wounds, purulence or fluctuance.)
Skin: No Rash
Neuro: Nonfocal/grossly intact
Psych: Calm
Laboratory Results
-
05/27/25 15:09
05/27/25 15:09
Laboratory Results
Total Bilirubin 0.6 mg/dl (0.2-1.3) 05/27/25 15:09
AST 19 U/L (14-36) 05/27/25 15:09
ALT < 10 U/L (0-35) 05/27/25 15:09
Alkaline Phosphatase 76 U/L (38-126) 05/27/25 15:09
Data Reviewed
-
Lab Data: Labs Reviewed by me
Old Records: Reviewed
Impression/Plan
-
Vital Signs
Temp Pulse Resp BP Pulse Ox
99.3 F 85 18 169/75 98
05/27/25 14:59 05/27/25 14:59 05/27/25 14:59 05/27/25 14:59 05/27/25 17:16
Abnormal Labs
05/27/25
15:09
WBC 11.2 H
Absolute Neuts (auto) 9.5 H
Absolute Lymphs (auto) 0.8 L
Neutrophils % 84.7 H
Lymphocytes % 7.3 L
Glucose 135 H
05/12/25 US Periph Venous LOWER Ext RT
- No evidence of deep venous thrombosis of the right lower extremity.
Last hospitalist admission: 05/12/25 - 05/15/25
DC DX: Sepsis secondary to right lower extremity cellulitis
ASSESSMENT & PLAN
Pending Rx reconciliation
Recurrent and worsening RLE cellulitis - WBC 11k, T 99.
Underlying chr Rt. Leonel lymphedema.
HX inadequate response to prolonged outpatient antibiotic therapy including clindamycin, doxycycline and Bactrim
- Prior HX NEG LEONEL DVT
- No prior MRSA screening
- BCx sent
- pending LA
- Observe on IV Cefazolin for now in place of IV Vancomyucin
- Monitor response closely while inpatient, if no progress , to consider ID consult
Known PMHX
Extreme Obesity with BMI 56 affect all aspects of life
Reports independent with ambulatory function
At risk for ERWIN , no prior HX of sleep study
HLD on Rosuvastatin
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
Bilateral lower extremity edema/lymphedema with no symptoms of acute CHF - No prior history of CHF - most recent echocardiogram with preserved biventricular function.
Hypothyroidism on LT4
DVT Px: LMWH
Full code
IP MS
[2025-05-27] MEDS: ANCEF 10 IV (18:13)
[2025-05-27 19:08] VITALS: BP 166/71; BMI 55.0
--- NOTE | 2025-05-27 20:00 | PTCARENOTE ---
Pt. admitted thru E.D., AAO x 3, vs stable, call cunningham within reach.
[2025-05-27] MEDS: ASPIR LOW (ENTERIC COATED) 81 MG PO (20:05)
[2025-05-27] MEDS: COLACE 200 MG PO (20:07)
[2025-05-27] MEDS: LOVENOX 40 MG SC (20:07)
[2025-05-27] MEDS: NORVASC 5 MG PO (20:08)
[2025-05-27] MEDS: CRESTOR 5 MG PO (20:08)
[2025-05-27] MEDS: SYNTHROID 125 MCG PO (20:13)
[2025-05-27] MEDS: ZESTRIL 20 MG PO (20:14)
[2025-05-27] MEDS: ULTRAM 25 MG PO (20:23)
[2025-05-27] MEDS: TYLENOL 650 MG PO (20:23)
[2025-05-27 23:08] VITALS: BP 127/52
[2025-05-28] MEDS: ANCEF 10 IV ×3 (02:30→17:18)
[2025-05-28] MEDS: FLUSH (NSS) 1 FLUSH IV (02:47)
[2025-05-28 07:11] VITALS: BP 121/50
--- NOTE | 2025-05-28 07:25 | W.PN.HOSP.TC ---
Addendum entered and electronically signed by Tiffanie Ponce MD 05/28/25 14:51:
I saw and evaluated the patient independently. I reviewed the resident�s note and agree with findings and plan as documented by Dr. Parks.
GENERAL: well developed, well nourished, morbidly obese female in no apparent distress
HEENT: NC/AT--no O2 requirements
HEART: regular rate and rhythm, +S1, +S2
LUNGS : clear to auscultation bilaterally
ABDOM: soft, nontender, nondistended, + bowel sounds
EXT: no cyanosis, clubbing--bilateral LE lymphedema--right leg red, hot to touch from just below knee to ankle--firm area posterior calf just inferior to back of knee--circumferential redness
NEUROLOGIC: grossly intact
Persistent Cellulitis of the Right Lower Extremity complicated by lymphedema--cont increased dose of IV cefazolin--await blood cultures--check CT scan LE edema (rule out foreign body/abscess)--apprec ID
Essential Hypertension--cont norvasc/lisinopril
Hyperlipidemia--Continue rosuvastatin
Hypothyroidism--Continue levothyroxine
DVT proph
code status--full code
Original Note:
Today's Communication/Plan
-
ID Consulted
CT extremity w/ contrast
Assessment / Plan
Assessment / Plan
Assessment
This is a 75 y/o female with pmhx of Essential Hypertension, Hyperlipidemia and Hypothyroidism who presented to the ED on 05/27/2025 with complaint of increasing pain, redness and swelling of her right lower extremities in the setting of a recent
admission in April for cellulitis of the same extremity.
Plan
Persistent Cellulitis of the Right Lower Extremity
-Currently on IV Cefazolin
-Pending blood cultures
-Ordered CT w/ contrast of the lower extremity
-Consulted Infectious Disease
Essential Hypertension
-Continue home meds
Hyperlipidemia
-Continue home meds
Hypothyroidism
-Continue home meds
Anticipated Discharge: 24 - 48 hours
Subjective/Interval History
-
Date of Service: May 28, 2025
She is doing well today, denies any complaints other than her leg. She does report this is the 4th time she has had this happen to this leg since November of 2024. She was prescribed doxycycline for 4 weeks by her PCP in November, and after completing
this course had a recurrence of infection in December. She does wear compression socks for lymphedema, and reports compliance with wearing them each day. She thinks she may have been bitten by something preceding this most recent event, but is not
sure. She has never had anything like this happen to any other extremity before, only ever her right lower extremity and always in the same areas.
Objective Data
-
Labs:
Laboratory Results
05/28/25
06:00
WBC Pending
Hgb Pending
Hct Pending
Plt Count Pending
Sodium Pending
Potassium Pending
Chloride Pending
Carbon Dioxide Pending
BUN Pending
Creatinine Pending
Glucose Pending
Calcium Pending
Total Bilirubin Pending
AST Pending
ALT Pending
Alkaline Phosphatase Pending
Vital Signs:
Vital Signs
Temp Pulse Resp BP Pulse Ox
99.7 F 74 18 121/50 94
05/28/25 07:11 05/28/25 07:11 05/28/25 07:11 05/28/25 07:11 05/28/25 07:11
I&O
05/27/25 05/28/25 05/29/25
06:59 06:59 06:59
Intake Total 240 / 240
Balance 240 / 240
Review of Systems
-
History Source: Patient
Constitutional: Reports No Symptoms
Respiratory: Reports No Symptoms
Cardiac: Reports No Symptoms
Abdomen/GI: Reports No Symptoms
Musculoskeletal: Reports Muscle Pain and Edema
Skin: Reports Rash
Neuro: Reports No Symptoms
Hematologic / Lymphatic: Reports Lymphedema
Physical Exam
-
General: Well Developed, Well Nourished, No Apparent Distress, Comfortable and Morbidly Obese
HEENT: Normocephalic and Atraumatic
Respiratory: Clear to Auscultation
Cardiac: Regular Rhythm and S1/S2
GI: Soft
Musculoskeletal: Edema, Right Lower Extrem (Edema and erythema of the right lower extremity extending from just below the knee to the ankle with associated tenderness to palpation)
Skin: Warm
Neuro: Awake, Alert and Oriented
Hematologic / Lymphatic: Lymphadenopathy
Psych: Calm
[2025-05-28 08:28] LABS: Hematocrit 33.8 % (37.0-47.0); Hemoglobin 11.2 g/dL (12.0-16.0); Mean Corp Hgb Conc. 33.1 g/dL (33.0-37.0); Mean Corpuscular Volume 87.3 fL (81.0-99.0); Platelet Count 229 10^3/uL (130-400); Red Cell Dist. Width 13.7 % (11.5-14.5)
[2025-05-28 08:41] LABS: ALT (SGPT) < 10 U/L (0-35); AST (SGOT) 15 U/L (14-36); Albumin 3.5 g/dl (3.5-5.0); Alkaline Phosphatase 75 U/L (38-126); Blood Urea Nitrogen 14 mg/dl (7-17); Calcium 8.8 mg/dl (8.4-10.2); Carbon Dioxide 25 mmol/L (22-30); Chloride 107 mmol/L (98-107); Estimated Creatinine Clearance 85 ml/min; Glucose 114 mg/dl (70-99); Potassium 4.0 mmol/L (3.5-5.1); Sodium 138 mmol/L (135-145); Total Protein 5.9 g/dl (6.3-8.2); eGFR > 60.00
[2025-05-28] MEDS: DESENEX/MITRAZOL/ZEASORB 1 APPLIC TOPICAL ×2 (09:11→19:49)
--- NOTE | 2025-05-28 14:01 | CON.ID ---
Consultation
-
Date/Time Consultation Requested: 05/28/2025 1224
Date/Time Consultation Performed: 05/28/2025 1334
Requesting Provider: Dr. Parks
Performing Provider: Dr. Peterson
Reason for Consultation: Right lower extremity cellulitis
Chief Complaint / Past History
History of Present Illness
Emmie Peralta is a 75-year-old female being evaluated in infectious disease consultation regarding recurrent right lower extremity cellulitis. History is obtained from chart review, along with patient interview.
The patient has a significant past medical history of lymphedema, along with morbid obesity. She reports a longstanding history of lymphedema, dating back to early 1999. She has been followed in the lymphedema clinic in the past, and has been
prescribed Farrow wraps which she reports using regularly. Since the beginning of the year she reports several episodes of cellulitis, with her most recent episode in mid April when she was admitted to [facility]. She ultimately was
discharged to home on 05/15, to continue with oral Keflex. She reports following discharge she continued to have right lower extremity erythema, but over the past several days she had noticed increased redness, increased swelling and the development
of more focal tenderness in the right posterior calf area. She admitted to some chills, and notes some groin discomfort over the past 24 to 48 hours.
Past History
Additional Past Medical History:
Lymphedema
Morbid obesity (BMI = 55)
HTN
HLD
Hypothyroidism
Additional Past Surgical History:
Appendectomy
x 2
Back surgery
Allergy History:
Iodinated Contrast Media Allergy (Verified 05/27/25 14:59)
Hives
iohexol (From Omnipaque) Allergy (Verified 05/27/25 14:59)
Hives
levofloxacin (From Levaquin) Allergy (Verified 05/27/25 14:59)
Unknown
Penicillins Allergy (Verified 05/27/25 14:59)
Swelling, throat closing up
Medications Reviewed: Yes
Current Antibiotics:
Cefazolin 2 g IV every 8 hours
Social History
Tobacco: Non-Smoker
Alcohol: None
Drug: None
Personal:
Living: With Family
Employment: Retired
Family History
Family History: Not Pertinent
Review of Systems
Vital Signs
Temp Pulse Resp BP Pulse Ox
99.7 F 74 18 121/50 94
05/28/25 07:11 05/28/25 07:11 05/28/25 07:11 05/28/25 07:11 05/28/25 07:11
Physical Exam
Physical Exam
Constitutional: No Acute Distress, Comfortable, Non-toxic and Obese
Head: Normocephalic
Eyes: Pupils Equal, Pupils Round, No Conjunctival Hemorrhage and Sclera Anicteric
Oral: No Thrush
Cardiovascular: S1/S2; Negative S3/S4
Pulmonary: Clear; Negative Wheezes, Rales or Rhonchi
Gastrointestinal: Non Tender and Non Distended
Extremities: Edema (3+ bilateral lower extremities, although greatest in right lower extremity), Erythema (Right foot 2 proximal calf area), Pulses and Other (Right calf area tenderness. Positive warmth); Negative Venous Insufficiency
Musculoskeletal: Negative Joint Swelling or Joint Effusion
Skin: Warm and Dry
Neurological: Awake and Alert
Lab / Diagnostic Study Results
05/28/25 07:48
05/28/25 07:48
Abs Immat Gran (auto) 0.0 10^3/uL (0-0.05) 05/27/25 15:09
Absolute Neuts (auto) 9.5 10^3/uL (1.4-6.5) H 05/27/25 15:09
Absolute Lymphs (auto) 0.8 10^3/uL (1.2-3.4) L 05/27/25 15:09
Absolute Monos (auto) 0.6 10^3/uL (0.1-0.6) 05/27/25 15:09
Absolute Basos (auto) 0.0 10^3/uL (0-0.2) 05/27/25 15:09
Immature Gran % 0.4 % (0-0.5) 05/27/25 15:09
Neutrophils % 84.7 % (42.2-75.2) H 05/27/25 15:09
Lymphocytes % 7.3 % (20.5-51.1) L 05/27/25 15:09
Monocytes % 5.0 % (1.7-9.3) 05/27/25 15:09
Eosinophils % 2.2 % (0-6) 05/27/25 15:09
Basophils % 0.4 % (0-2) 05/27/25 15:09
Lactic Acid 0.9 mmol/L (0.7-2.0) 05/27/25 18:08
Microbiology Results
Micro:
05/27/25 18:08 Blood Culture - Pending
Blood/Venous
Imaging:
05/27/25 Duplex ultrasound right lower extremity: There is normal compressibility and color Doppler imaging of the right deep venous system from the common femoral vein through the posterior tibial vein with no evidence for deep venous thrombosis.
The proximal right greater saphenous vein is also patent.
Assessment / Plan
Recurrent right lower extremity cellulitis
Leukocytosis
Lymphedema
Morbid obesity (BMI = 55)
HTN
HLD
Hypothyroidism
Recommendations:
Continue with cefazolin at current dose.
Right lower extremity Fletcher wrap's to decrease edema. Continue with lower extremity elevation.
Monitor white count and temperature curve.
Follow-up for clinical improvement over the next 48 to 72 hours.
Ultimately, patient may need to be placed on suppressive antibiotics given that this is the 4th or 5th episode of cellulitis this year.
Care Review
Plan reviewed with: Physician (Hospital service)
[2025-05-28 15:26] VITALS: BP 114/43
[2025-05-28] MEDS: LOVENOX 40 MG SC (17:18)
[2025-05-28] MEDS: CRESTOR 5 MG PO (17:19)
[2025-05-28] MEDS: COLACE 200 MG PO (17:19)
[2025-05-28] MEDS: SYNTHROID 125 MCG PO (17:20)
[2025-05-28] MEDS: ASPIR LOW (ENTERIC COATED) 81 MG PO (17:20)
[2025-05-28] MEDS: ZESTRIL 20 MG PO (17:20)
[2025-05-28] MEDS: NORVASC 5 MG PO (17:20)
[2025-05-28 19:27] LABS: Hepatitis C Antibody Negative (Negative)
[2025-05-28] MEDS: PROTONIX 40 MG PO (19:48)
[2025-05-28] MEDS: TYLENOL 650 MG PO (21:36)
[2025-05-28 23:00] VITALS: BP 149/57
[2025-05-29] MEDS: ANCEF 10 IV ×3 (02:44→17:09)
[2025-05-29] MEDS: FLUSH (NSS) 1 FLUSH IV (02:44)
[2025-05-29 07:00] VITALS: BP 135/51
[2025-05-29 07:35] LABS: Blood Urea Nitrogen 14 mg/dl (7-17); Calcium 8.4 mg/dl (8.4-10.2); Carbon Dioxide 26 mmol/L (22-30); Chloride 109 mmol/L (98-107); Estimated Creatinine Clearance 99 ml/min; Glucose 98 mg/dl (70-99); Hematocrit 31.7 % (37.0-47.0); Hemoglobin 10.6 g/dL (12.0-16.0); Mean Corp Hgb Conc. 33.4 g/dL (33.0-37.0); Mean Corpuscular Volume 87.8 fL (81.0-99.0); Platelet Count 198 10^3/uL (130-400); Potassium 3.9 mmol/L (3.5-5.1); Red Cell Dist. Width 13.7 % (11.5-14.5); Sodium 140 mmol/L (135-145); eGFR > 60.00
--- NOTE | 2025-05-29 08:07 | W.PN.HOSP.TC ---
Addendum entered and electronically signed by Tiffanie Ponce MD 05/29/25 14:20:
I saw and evaluated the patient independently. I reviewed the resident�s note and agree with findings and plan as documented by Dr. Parks.
GENERAL: well developed, well nourished, morbidly obese female in no apparent distress
HEENT: NC/AT--no O2 requirements
HEART: regular rate and rhythm, +S1, +S2
LUNGS : clear to auscultation bilaterally
ABDOM: soft, nontender, nondistended, + bowel sounds
EXT: no cyanosis, clubbing--bilateral LE lymphedema--right leg red, hot to touch from just below knee to ankle--firm area posterior calf just inferior to back of knee--circumferential redness--all much improved
NEUROLOGIC: grossly intact
Persistent Cellulitis of the Right Lower Extremity complicated by lymphedema--cont increased dose of IV cefazolin-- blood cultures negative-- CT scan LE edema shows subcutaneous edema, no foreign bodies--apprec ID
Essential Hypertension--cont norvasc/lisinopril
Hyperlipidemia--Continue rosuvastatin
Hypothyroidism--Continue levothyroxine
DVT proph
code status--full code
Original Note:
Today's Communication/Plan
-
Continue JESSE wraps and antibiotics
Assessment / Plan
Assessment / Plan
Assessment
This is a 75 y/o female with pmhx of Essential Hypertension, Hyperlipidemia and Hypothyroidism who presented to the ED on 05/27/2025 with complaint of increasing pain, redness and swelling of her right lower extremities in the setting of a recent
admission in April for cellulitis of the same extremity.
Plan
Persistent Cellulitis of the Right Lower Extremity
-Currently on IV Cefazolin
-Blood cultures negative.
-CT w/o contrast of lower extremity did not show any retained objects that could be contributing to this infection or abscesses
-Goal to transition medications from IV to oral. Will appreciate Infectious Disease's insight onto most appropriate antibiotic and dosage and timeframe to prevent reoccurrence of this disease
Essential Hypertension
-Continue home meds
Hyperlipidemia
-Continue home meds
Hypothyroidism
-Continue home meds
Anticipated Discharge: Within 24 hours
Subjective/Interval History
-
Date of Service: May 29, 2025
She is doing well today, and reports her leg is doing better. She had an JESSE compression wrap on for 5 hours yesterday which she states helped a lot with reducing the swelling. She had questions about antibiotics and how we determine what are
appropriate in infections, and had questions about how long she will have to remain on antibiotics after being discharged.
Objective Data
-
Labs:
Laboratory Results
05/29/25
07:02
WBC 5.7
Hgb 10.6 L
Hct 31.7 L
Plt Count 198
Sodium 140
Potassium 3.9
Chloride 109 H
Carbon Dioxide 26
BUN 14
Creatinine 0.6
Glucose 98
Calcium 8.4
Vital Signs:
Vital Signs
Temp Pulse Resp BP Pulse Ox
98.4 F 63 18 149/57 95
05/28/25 23:00 05/28/25 23:00 05/28/25 23:00 05/28/25 23:00 05/28/25 23:00
I&O
05/28/25 05/29/25 05/30/25
06:59 06:59 06:59
Intake Total 240 / 240 600 / 600
Balance 240 / 240 600 / 600
Review of Systems
-
History Source: Patient
Constitutional: Denies Fever, Fatigue, Chills or Weakness
Respiratory: Reports No Symptoms
Cardiac: Reports No Symptoms
Abdomen/GI: Reports No Symptoms
Musculoskeletal: Reports Muscle Pain (Right leg, reduced from yesterday) and Edema (Right leg, reduced from yesterday)
Neuro: Reports No Symptoms
Hematologic / Lymphatic: Reports Lymphedema (Both legs, chronic); Denies Bleeding
Physical Exam
-
General: Well Developed, Well Nourished, No Apparent Distress, Comfortable and Morbidly Obese
HEENT: Normocephalic and Atraumatic
Respiratory: Clear to Auscultation
Cardiac: Regular Rhythm and S1/S2
Musculoskeletal: Edema, Left Upper Extrem (Lymphedema, unchanged) and Edema, Right Lower Extrem (Improving erythema and edema of the right lower extremity with less warmth to touch. There is an area of distinct hardness of the skin behind the calf
of the right leg)
Skin: Warm and Dry
[2025-05-29] MEDS: DESENEX/MITRAZOL/ZEASORB 1 APPLIC TOPICAL ×2 (10:22→21:21)
[2025-05-29] MEDS: PROTONIX 40 MG PO (10:23)
--- NOTE | 2025-05-29 13:39 | W.PN.ID1 ---
Date of Service
Date of Service: May 29, 2025
Today's Communication
Continue cefazolin.
Assessment / Plan
Recurrent right lower extremity cellulitis
Leukocytosis
Lymphedema
Morbid obesity (BMI = 55)
HTN
HLD
Hypothyroidism
Recommendations:
Continue with cefazolin at current dose.
Right lower extremity Fletcher wrap's to decrease edema. Continue with lower extremity elevation.
Monitor white count and temperature curve. Improvement in white count noted.
Follow for clinical improvement over the next 48 to 72 hours.
Ultimately, patient may need to be placed on suppressive antibiotics given that this is the 4th or 5th episode of cellulitis this year.
����������������������������������������������������������
Chief Complaint
-: Cellulitis
Subjective / Review of Systems
Patient seen and examined. Reports decreased pain in right lower extremity.
Review of Systems: No Fever and No Chills
Vital Signs / Physical Exam
Vital Signs
Vital Signs
Temp Pulse Resp BP Pulse Ox
98.2 F 60 18 135/51 97
05/29/25 07:00 05/29/25 07:00 05/29/25 07:00 05/29/25 07:00 05/29/25 07:00
Physical Exam
Constitutional: No Acute Distress, Comfortable and Non-toxic
Pulmonary: Non Labored
Extremities: Edema and Erythema
Neurological: Awake and Alert
Psychological: Calm
Objective Data
Lab Data
Lab Results
05/29/25 07:02
05/29/25 07:02
Estimated Creat Clear 99 ml/min 05/29/25 07:02
Lactic Acid 0.9 mmol/L (0.7-2.0) 05/27/25 18:08
Total Bilirubin 0.6 mg/dl (0.2-1.3) 05/28/25 07:48
AST 15 U/L (14-36) 05/28/25 07:48
ALT < 10 U/L (0-35) 05/28/25 07:48
Alkaline Phosphatase 75 U/L (38-126) 05/28/25 07:48
Most recent labs reviewed.
Micro Results:
05/27/25 18:08 Blood Culture - Preliminary
Blood/Venous No Growth in 24 hours- Final report to follow
Imaging:
05/27/25 Duplex ultrasound right lower extremity: There is normal compressibility and color Doppler imaging of the right deep venous system from the common femoral vein through the posterior tibial vein with no evidence for deep venous thrombosis.
The proximal right greater saphenous vein is also patent.
[2025-05-29 15:00] VITALS: BP 139/51
[2025-05-29] MEDS: ZESTRIL 20 MG PO (17:09)
[2025-05-29] MEDS: COLACE 200 MG PO (17:09)
[2025-05-29] MEDS: ASPIR LOW (ENTERIC COATED) 81 MG PO (17:09)
[2025-05-29] MEDS: CRESTOR 5 MG PO (17:09)
[2025-05-29] MEDS: LOVENOX 40 MG SC (17:10)
[2025-05-29] MEDS: SYNTHROID 125 MCG PO (17:10)
[2025-05-29] MEDS: NORVASC 5 MG PO (17:10)
[2025-05-29] MEDS: SENOKOT-S 1 TABLET PO (21:28)
[2025-05-29 23:18] VITALS: BP 96/59
[2025-05-30] MEDS: TYLENOL 650 MG PO ×2 (00:16→20:26)
[2025-05-30] MEDS: ANCEF 10 IV ×3 (02:11→17:28)
[2025-05-30 02:18] VITALS: BP 163/70
--- NOTE | 2025-05-30 07:07 | W.PN.HOSP.TC ---
Today's Communication/Plan
-
Goal to transition from IV to oral antibiotics
Assessment / Plan
Assessment / Plan
Assessment
This is a 75 y/o female with pmhx of Essential Hypertension, Hyperlipidemia and Hypothyroidism who presented to the ED on 05/27/2025 with complaint of increasing pain, redness and swelling of her right lower extremities in the setting of a recent
admission in April for cellulitis of the same extremity.
Plan
Persistent Cellulitis of the Right Lower Extremity
-Currently on IV Cefazolin
-Blood cultures negative.
-CT w/o contrast of lower extremity did not show any retained objects that could be contributing to this infection or abscesses
-Goal to transition medications from IV to oral. Will appreciate Infectious Disease's insight onto most appropriate antibiotic and dosage and timeframe to prevent reoccurrence of this disease
Chronic Lymphedema
-Continue use of compression stockings
-Encouraged follow up with lymphedema clinic in outpatient setting
Constipation
-Continue home meds (docusate and senna)
Essential Hypertension
-Continue home meds
Hyperlipidemia
-Continue home meds
Hypothyroidism
-Continue home meds
Anticipated Discharge: 24 - 48 hours
Subjective/Interval History
-
Date of Service: May 30, 2025
Patient is doing well today with significant improvement. She does report some 'tingling' within her right leg overnight that resolved in a few minutes without intervention. She describes the sensation as feeling prickly and had not happened
previously. We discussed her prior cellulitis episodes that happened this year, and she reports the following:
The first episode occurred in November, and after her leg became red/swollen her PCP started her on oral clindamycin. She took this for 2 weeks, and when no improvement came her PCP added Doxycycline to her regimen. She continued both medications for
2 weeks, but her leg suddenly became more red, swollen and painful in December despite her compliance with her dual therapy regimine.
In April, her leg became red, swollen and painful once more. She came to this hospital where she was admitted from 05/12-05/15. She was discharged from the hospital on Keflex and was on day 12 of a 15 day course when again her leg suddenly became more
red, swollen and painful. She came to the ED at this point, and is currently admitted for this episode of cellulitis. This current admission naranjo the second time this year she has had a flare of cellulitis while taking oral antibiotics.
Objective Data
-
Labs:
Laboratory Results
05/30/25
06:00
WBC Pending
Hgb Pending
Hct Pending
Plt Count Pending
Sodium Pending
Potassium Pending
Chloride Pending
Carbon Dioxide Pending
BUN Pending
Creatinine Pending
Glucose Pending
Calcium Pending
Vital Signs:
Vital Signs
Temp Pulse Resp BP Pulse Ox
98.4 F 62 16 163/70 94
05/29/25 23:18 05/30/25 02:18 05/29/25 23:18 05/30/25 02:18 05/29/25 23:18
I&O
05/29/25 05/30/25 05/31/25
06:59 06:59 06:59
Intake Total 600 / 600 1680 / 1680
Balance 600 / 600 1680 / 1680
Review of Systems
-
History Source: Patient
Constitutional: Denies Fever, Fatigue or Weakness
Respiratory: Reports No Symptoms
Cardiac: Reports No Symptoms
Abdomen/GI: Reports No Symptoms
Musculoskeletal: Reports Muscle Pain (Right leg, decreased from yesterday) and Edema (Right leg, decreased from yesterday)
Skin: Reports Skin Thickening (Calf of right leg)
Neuro: Denies Headache, Weakness or Numbness
Hematologic / Lymphatic: Reports Lymphedema (Bilateral legs, chronic)
Physical Exam
-
General: Well Developed, Well Nourished, No Apparent Distress, Comfortable and Morbidly Obese
HEENT: Normocephalic and Atraumatic
Respiratory: Clear to Auscultation
Cardiac: Regular Rhythm and S1/S2
Musculoskeletal: Edema, Right Lower Extrem (Patient with decreased erythema and edema compared to yesterday, now starting around 4 inches below the knee and extending to the ankle. There is an area of hardened skin on the back of the right calf) and
Edema, Left Lower Extrem (Lymphedema present)
Skin: Warm, Dry and Rash (See Edema Right Lower Extremity)
Neuro: Awake, Alert and Oriented
Psych: Calm
[2025-05-30 07:51] VITALS: BP 141/55
[2025-05-30 09:12] LABS: Hematocrit 33.6 % (37.0-47.0); Hemoglobin 11.1 g/dL (12.0-16.0); Mean Corp Hgb Conc. 33.0 g/dL (33.0-37.0); Mean Corpuscular Volume 88.2 fL (81.0-99.0); Platelet Count 243 10^3/uL (130-400); Red Cell Dist. Width 13.6 % (11.5-14.5)
[2025-05-30] MEDS: PROTONIX PO (09:32)
[2025-05-30] MEDS: DESENEX/MITRAZOL/ZEASORB 1 APPLIC TOPICAL ×2 (09:34→20:00)
[2025-05-30 09:40] LABS: Blood Urea Nitrogen 15 mg/dl (7-17); Calcium 8.7 mg/dl (8.4-10.2); Carbon Dioxide 30 mmol/L (22-30); Chloride 108 mmol/L (98-107); Estimated Creatinine Clearance 99 ml/min; Glucose 99 mg/dl (70-99); Potassium 4.2 mmol/L (3.5-5.1); Sodium 140 mmol/L (135-145); eGFR > 60.00
--- NOTE | 2025-05-30 14:03 | W.PN.ID1 ---
Date of Service
Date of Service: May 30, 2025
Today's Communication
Continue antibiotics.
Assessment / Plan
Recurrent right lower extremity cellulitis
Leukocytosis
Lymphedema
Morbid obesity (BMI = 55)
HTN
HLD
Hypothyroidism
Recommendations:
Continue with cefazolin.
Right lower extremity Fletcher wrap's to decrease edema. Continue with lower extremity elevation.
Monitor white count and temperature curve. Improvement in white count noted.
Follow for clinical improvement over the next 24 hours. Possible transition to oral regimen tomorrow.
Ultimately, patient may need to be placed on suppressive antibiotics given that this is the 4th or 5th episode of cellulitis this year.
����������������������������������������������������������
Chief Complaint
-: Cellulitis
Subjective / Review of Systems
Patient seen and examined. Reports some improvement in right lower extremity discomfort, along with decreased swelling
Vital Signs / Physical Exam
Vital Signs
Vital Signs
Temp Pulse Resp BP Pulse Ox
98.2 F 61 17 141/55 96
05/30/25 07:51 05/30/25 07:51 05/30/25 07:51 05/30/25 07:51 05/30/25 07:51
Physical Exam
Constitutional: No Acute Distress, Comfortable and Non-toxic
Pulmonary: Non Labored
Extremities: Edema (Right lower extremity slightly diminished.), Erythema (Right lower extremity; improved) and Other (Decreased significant warmth in the right leg)
Neurological: Awake and Alert
Psychological: Calm
Objective Data
Lab Data
Lab Results
05/30/25 08:22
05/30/25 08:22
Estimated Creat Clear 99 ml/min 05/30/25 08:22
Lactic Acid 0.9 mmol/L (0.7-2.0) 05/27/25 18:08
Total Bilirubin 0.6 mg/dl (0.2-1.3) 05/28/25 07:48
AST 15 U/L (14-36) 05/28/25 07:48
ALT < 10 U/L (0-35) 05/28/25 07:48
Alkaline Phosphatase 75 U/L (38-126) 05/28/25 07:48
Most recent labs reviewed.
Micro Results:
05/27/25 18:08 Blood Culture - Preliminary
Blood/Venous No Growth in 48 hours- Final report to follow
Imaging:
05/27/25 Duplex ultrasound right lower extremity: There is normal compressibility and color Doppler imaging of the right deep venous system from the common femoral vein through the posterior tibial vein with no evidence for deep venous thrombosis.
The proximal right greater saphenous vein is also patent.
[2025-05-30 15:03] VITALS: BP 158/56
[2025-05-30] MEDS: LOVENOX 40 MG SC (17:28)
[2025-05-30] MEDS: SYNTHROID 125 MCG PO (17:28)
[2025-05-30] MEDS: CRESTOR 5 MG PO (17:28)
[2025-05-30] MEDS: ASPIR LOW (ENTERIC COATED) 81 MG PO (17:28)
[2025-05-30] MEDS: COLACE 200 MG PO (17:29)
[2025-05-30] MEDS: NORVASC 5 MG PO (17:29)
[2025-05-30] MEDS: ZESTRIL 20 MG PO (17:29)
[2025-05-30] MEDS: PROTONIX 40 MG PO (20:26)
[2025-05-30] MEDS: SENOKOT 8.6 MG PO (20:26)
[2025-05-30 23:26] VITALS: BP 121/44
[2025-05-31] MEDS: ANCEF 10 IV ×2 (01:49→08:52)
--- NOTE | 2025-05-31 07:27 | W.PN.HOSP.TC ---
Today's Communication/Plan
-
Transition to PO medications
Assessment / Plan
Assessment / Plan
Assessment
This is a 75 y/o female with pmhx of Essential Hypertension, Hyperlipidemia and Hypothyroidism who presented to the ED on 05/27/2025 with complaint of increasing pain, redness and swelling of her right lower extremities in the setting of a recent
admission in April for cellulitis of the same extremity.
Plan
Persistent Cellulitis of the Right Lower Extremity
-Currently on IV Cefazolin
-Blood cultures negative.
-CT w/o contrast of lower extremity did not show any retained objects that could be contributing to this infection or abscesses
-Goal to transition medications from IV to oral. Will appreciate Infectious Disease's insight onto most appropriate antibiotic and dosage and timeframe to prevent reoccurrence of this disease. Previous antibiotics unsuccessfully used for her
cellulitis in the past include clindamycin (11/2024), doxycycline (12/2024, concurrent with clindamycin), Bactrim (Historic), and Keflex (04/2025)
Chronic Lymphedema
-Continue use of compression stockings
-Encouraged follow up with lymphedema clinic in outpatient setting
Constipation
-Continue home meds (docusate and senna)
Essential Hypertension
-Continue home meds
Hyperlipidemia
-Continue home meds
Hypothyroidism
-Continue home meds
Anticipated Discharge: Within 24 hours
Subjective/Interval History
-
Date of Service: May 31, 2025
Patient was doing well today when I arrived. We spoke about her history of cellulitis infections of her lower leg prior to the four episodes occurring this year. She told me that she first started to get periodic infections in her right leg back in
1998, at which time each episode was successfully treated with Bactrim. She did not, prior to 2024, have any episodes of recurrent cellulitis while she was actively taking antibiotics. However, in the late , Bactrim stopped working for her
infections and she had to switch to other antibiotics such as clindamycin, Keflex and Doxycycline.
Objective Data
-
Labs:
Laboratory Results
05/31/25
07:19
WBC Pending
Hgb Pending
Hct Pending
Plt Count Pending
Sodium Pending
Potassium Pending
Chloride Pending
Carbon Dioxide Pending
BUN Pending
Creatinine Pending
Glucose Pending
Calcium Pending
Vital Signs:
Vital Signs
Temp Pulse Resp BP Pulse Ox
98.1 F 62 16 121/44 95
05/30/25 23:26 05/30/25 23:26 05/30/25 23:26 05/30/25 23:26 05/30/25 23:26
I&O
05/30/25 05/31/25 06/01/25
06:59 06:59 06:59
Intake Total 1680 / 1680 1020 / 1020
Balance 1680 / 1680 1020 / 1020
Review of Systems
-
History Source: Patient
Constitutional: Denies Fever, Fatigue, Chills or Weakness
Respiratory: Denies Cough, Trouble Breathing or Wheezing
Cardiac: Denies Chest Pain or Palpitations
Abdomen/GI: Denies Abdominal Pain, Nausea, Vomiting, Diarrhea or Constipated
Musculoskeletal: Reports Edema (Right leg, reduced since yesterday)
Skin: Reports Rash (Right leg, reduced from yesterday) and Skin Thickening (Back of calf of right leg)
Neuro: Denies Dizzy or Headache
Hematologic / Lymphatic: Reports Lymphedema (Chronic, bilateral lower extremities)
Physical Exam
-
General: Well Developed, Well Nourished, No Apparent Distress, Comfortable and Morbidly Obese
HEENT: Normocephalic and Atraumatic
Respiratory: Clear to Auscultation
Cardiac: Regular Rhythm and S1/S2
Musculoskeletal: Edema, Right Lower Extrem (Edema and erythema still present, though reduced from yesterday and significantly reduced since admission. There is some hardness to the calf with some mild tenderness to palpation unchanged since
yesterday) and Edema, Left Lower Extrem (Lymphedema, unchanged)
Skin: Warm, Dry and Rash (Right leg, see above, reduced since yesterday)
Neuro: Awake, Alert and Oriented
Psych: Calm
[2025-05-31 07:52] LABS: Hematocrit 32.5 % (37.0-47.0); Hemoglobin 10.5 g/dL (12.0-16.0); Mean Corp Hgb Conc. 32.3 g/dL (33.0-37.0); Mean Corpuscular Volume 88.6 fL (81.0-99.0); Platelet Count 223 10^3/uL (130-400); Red Cell Dist. Width 13.5 % (11.5-14.5)
[2025-05-31 08:11] VITALS: BP 131/54
[2025-05-31 08:27] LABS: Blood Urea Nitrogen 14 mg/dl (7-17); Calcium 8.7 mg/dl (8.4-10.2); Carbon Dioxide 28 mmol/L (22-30); Chloride 109 mmol/L (98-107); Estimated Creatinine Clearance 99 ml/min; Glucose 104 mg/dl (70-99); Potassium 4.2 mmol/L (3.5-5.1); Sodium 142 mmol/L (135-145); eGFR > 60.00
[2025-05-31] MEDS: DESENEX/MITRAZOL/ZEASORB 1 APPLIC TOPICAL (08:52)
--- NOTE | 2025-05-31 12:24 | W.PN.ID1 ---
Date of Service
Date of Service: May 31, 2025
Today's Communication
Continue antibiotics. See below�
Assessment / Plan
Recurrent right lower extremity cellulitis
Leukocytosis
Lymphedema
Morbid obesity (BMI = 55)
HTN
HLD
Hypothyroidism
Recommendations:
Leg overall appears improved. At discharge, can transition to oral cephalexin 750 mg 4 times daily for an additional 10 days.
Following this, would place on suppressive antibiotics consisting of cephalexin 500 mg twice daily x 6 months
Right lower extremity Fletcher wrap's to decrease edema. Continue with lower extremity elevation.
����������������������������������������������������������
Chief Complaint
-: Cellulitis
Subjective / Review of Systems
Review of Systems: No Fever and No Chills
Vital Signs / Physical Exam
Vital Signs
Vital Signs
Temp Pulse Resp BP Pulse Ox
97.8 F 57 20 131/54 96
05/31/25 08:11 05/31/25 08:11 05/31/25 08:11 05/31/25 08:11 05/31/25 08:35
Physical Exam
Constitutional: No Acute Distress, Comfortable and Non-toxic
Pulmonary: Non Labored
Extremities: Edema (Right lower extremity slightly diminished.), Erythema (Right lower extremity; improved) and Other (Decreased significant warmth in the right leg)
Neurological: Awake and Alert
Psychological: Calm
Objective Data
Lab Data
Lab Results
05/31/25 07:19
05/31/25 07:19
Estimated Creat Clear 99 ml/min 05/31/25 07:19
Lactic Acid 0.9 mmol/L (0.7-2.0) 05/27/25 18:08
Total Bilirubin 0.6 mg/dl (0.2-1.3) 05/28/25 07:48
AST 15 U/L (14-36) 05/28/25 07:48
ALT < 10 U/L (0-35) 05/28/25 07:48
Alkaline Phosphatase 75 U/L (38-126) 05/28/25 07:48
Most recent labs reviewed.
Micro Results:
05/27/25 18:08 Blood Culture - Preliminary
Blood/Venous No Growth in 72 hours- Final report to follow
Imaging:
05/27/25 Duplex ultrasound right lower extremity: There is normal compressibility and color Doppler imaging of the right deep venous system from the common femoral vein through the posterior tibial vein with no evidence for deep venous thrombosis.
The proximal right greater saphenous vein is also patent.
Care Review
Plan reviewed with: Physician (Hospitalist and resident.)
--- NOTE | 2025-05-31 12:46 | CM ---
Patient for d/c today. Initial assessment completed. Recent admission (05/12-05/15) for sepsis D/T RLE cellulitis. Admitted for recurrent and worsening Rt Leonel infection.
Met w/ patient bedside. Patient resides w/ spouse in a single story home, 2 steps to enter. Patient is independent in all areas, no DME reported. Patient drives currently. No SNF/HC hx reported.
Address, point of contact and insurance verified
PCP: Luma Olsen
Pharmacy: [facility]
Po abx at d/c
Spouse will transport home
IMM verbally reviewed, copy provided, copy on chart
Plan: Home, no needs
--- NOTE | 2025-05-31 12:52 | W.DCSUMMARY ---
Documented by User: Lashawn DobbsDO ramon, Resident 05/31/25 13:02
Discharge Summary
Discharge Data
Date of Admission: 05/27/25
Date of Discharge: 05/31/25
-
Pending Results: No
Hospital Course
This is a 75 y/o female with pmhx of Essential Hypertension, Hyperlipidemia and Hypothyroidism who presented to the ED on 05/27/2025 with complaint of increasing pain, redness and swelling of her right lower extremities. She was recently seen at this
same hospital from 05/12-05/15 with cellulitis of the same extremity. This is the 4th time she has had similar symptoms since November of this year, and the second time these symptoms have occurred while she was taking antibiotics. An Ultrasound at
that time was negative for DVT. At that time she was treated with Anef, and transitioned to Keflex before being discharged. Her blood cultures from that admission were ultimately negative. She continued to take Keflex outpatient with slow
improvement, but her calf has become painful and hard.
On the day of her ED visit, she reported a rapid progression of redness without any fever or chills despite still actively taking Keflex. On admission she was started on IV Cefazolin. Ultrasound showed no evidence of DVT of the right lower
extremity. She received a CT of her right lower extremity without contrast, which revealed no retained objects which could be contributing to her recurrence of cellulitis. Infectious Disease was consulted. Over the next few days her leg began to
improve with decreased swelling, redness and pain.
On 05/31/2025 she was found to be medically stable and was discharged to home on 750mg QID of Keflex for 10 days, following which Infectious Disease would recommend a suppressive course of Keflex 500mg BID for 6 months. She was encouraged to follow up
with her PCP in less than 1 week.
Discharge Plan
-
Patient Disposition: Home (Routine Discharge)
Discharge Diagnosis/Procedures: Persistent Cellulitis of the Right Lower Extremity Complicated by Lymphedema, Essential Hypertension, Hyperlipidemia, Hypothyroidism
Condition: Good
Diet: No restrictions
Activity: No restrictions
Driving Restrictions: As prior to admission
Bathing Restrictions: None
Referrals:
Luma Olsen CRNP [Family Provider, Internal Medicine] - in less than 1 week
Additional Discharge Medication Instructions: We are sending you home with a prescription for Keflex 750mg four times daily (As one 500mg pill and one 250mg pill). You should finish the entire course of antibiotics for a total of 10 days.
Prescriptions:
New
cephalexin 500 mg capsule
500 mg PO QID 10 Days Qty: 40 0RF
cephalexin 250 mg capsule
250 mg PO QID 10 Days Qty: 40 0RF
Continued
sennosides [senna] 8.6 mg Tablet
8.6 mg PO QPM
lisinopril 20 mg Tablet
20 mg PO QPM
amlodipine 5 mg Tablet
5 mg PO QPM
aspirin 81 mg Tablet,Delayed Release (Dr/Ec)
81 mg PO QPM
levothyroxine 125 mcg Tablet
125 mcg PO QPM
docusate sodium 100 mg Capsule
200 mg PO QPM
rosuvastatin 5 mg Tablet
5 mg PO QPM
pantoprazole [Protonix] 40 mg tablet,delayed release (DR/EC)
40 mg PO QPM
tramadol 50 mg Tablet
50 mg PO TIDPRN PRN (Reason: moderate pain)
ibuprofen [Advil] 200 mg Tablet
400 mg PO DAILYPRN PRN (Reason: mild pain)
Discontinued
cephalexin 500 mg capsule
500 mg PO QID
Rx Instructions:
start 05/15/25
Discharge Orders:
Discharge Patient (As Directed); Ordered 05/31/25
Ordered By: Lashawn Parks
Discharge Date and Time
Discharge Date/Time: 05/31/25 13:56
Print Language: SURINAMESE

Documented by User: Marco Mckeon DO 05/31/25 17:08
Discharge Summary
Discharge Data
Date of Admission: 05/27/25
Date of Discharge: 05/31/25
Total time spent discharging patient (in min): 33
Discharge Plan
-
Patient Disposition: Home (Routine Discharge)
Discharge Diagnosis/Procedures: Persistent Cellulitis of the Right Lower Extremity Complicated by Lymphedema, Essential Hypertension, Hyperlipidemia, Hypothyroidism
Condition: Good
Diet: No restrictions
Activity: No restrictions
Driving Restrictions: As prior to admission
Bathing Restrictions: None
Referrals:
Luma Olsen CRNP [Family Provider, Internal Medicine] - in less than 1 week
Additional Discharge Medication Instructions: We are sending you home with a prescription for Keflex 750mg four times daily (As one 500mg pill and one 250mg pill). You should finish the entire course of antibiotics for a total of 10 days.
Prescriptions:
New
cephalexin 500 mg capsule
500 mg PO QID 10 Days Qty: 40 0RF
cephalexin 250 mg capsule
250 mg PO QID 10 Days Qty: 40 0RF
Continued
sennosides [senna] 8.6 mg Tablet
8.6 mg PO QPM
lisinopril 20 mg Tablet
20 mg PO QPM
amlodipine 5 mg Tablet
5 mg PO QPM
aspirin 81 mg Tablet,Delayed Release (Dr/Ec)
81 mg PO QPM
levothyroxine 125 mcg Tablet
125 mcg PO QPM
docusate sodium 100 mg Capsule
200 mg PO QPM
rosuvastatin 5 mg Tablet
5 mg PO QPM
pantoprazole [Protonix] 40 mg tablet,delayed release (DR/EC)
40 mg PO QPM
tramadol 50 mg Tablet
50 mg PO TIDPRN PRN (Reason: moderate pain)
ibuprofen [Advil] 200 mg Tablet
400 mg PO DAILYPRN PRN (Reason: mild pain)
Discontinued
cephalexin 500 mg capsule
500 mg PO QID
Rx Instructions:
start 05/15/25
Discharge Orders:
Discharge Patient (As Directed); Ordered 05/31/25
Ordered By: Lashawn Parks
Discharge Date and Time
Discharge Date/Time: 05/31/25 13:56
Print Language: SURINAMESE
== END 2025-05-31 13:56 | disposition home or self-care (01) | DRG 603 ==
LOC: 4 WEST ACU 17:53
PROVIDERS: Emergency Medicine; Nurse Practitioner; ADMITTING PHYSICIAN Internal Medicine; ATTENDING PHYSICIAN Internal Medicine; CONSULT PHYSICIAN Internal Medicine Infectious Disease; EMERGENCY PHYSICIAN Emergency Medicine; FAMILY PHYSICIAN Nurse Practitioner
DX: L03.115 Cellulitis of right lower limb (principal); Z68.43 Body mass index [BMI] 50.0-59.9, adult; E03.9 Hypothyroidism, unspecified; I10 Essential (primary) hypertension; E78.00 Pure hypercholesterolemia, unspecified; I89.0 Lymphedema, not elsewhere classified; Z79.890 Hormone replacement therapy; Z88.0 Allergy status to penicillin; Z79.82 Long term (current) use of aspirin; E66.01 Morbid (severe) obesity due to excess calories
CPT/HCPCS: 73700; 80048; 80053; 83605; 85025; 85027; 86803; 87040; 93971; 96374; 99284

== ENCOUNTER 2025-06-15 16:57 | Inpatient (IN) | payer MEDICARE, OTHER, SELFPAY ==
[2025-06-15 12:25] VITALS: BP 158/70
[2025-06-15 14:07] LABS: Hematocrit 35.0 % (37.0-47.0); Hemoglobin 11.7 g/dL (12.0-16.0); Mean Corp Hgb Conc. 33.4 g/dL (33.0-37.0); Mean Corpuscular Volume 86.6 fL (81.0-99.0); Nucleated Red Blood Cells % 0 %; Platelet Count 137 10^3/uL (130-400); Red Cell Dist. Width 14.4 % (11.5-14.5)
[2025-06-15 14:24] LABS: ALT (SGPT) < 10 U/L (0-35); AST (SGOT) 19 U/L (14-36); Albumin 3.9 g/dl (3.5-5.0); Alkaline Phosphatase 56 U/L (38-126); Blood Urea Nitrogen 23 mg/dl (7-17); Calcium 8.9 mg/dl (8.4-10.2); Carbon Dioxide 22 mmol/L (22-30); Chloride 109 mmol/L (98-107); Glucose 142 mg/dl (70-99); Potassium 4.2 mmol/L (3.5-5.1); Sodium 136 mmol/L (135-145); Total Protein 6.4 g/dl (6.3-8.2); eGFR > 60.00
[2025-06-15] MEDS: VANCOCIN 540 MG IV (15:07)
--- NOTE | 2025-06-15 15:34 | ED.GENMED ---
History of Present Illness
General
Chief Complaint: Fever
Source: patient and family
Time Seen by Provider: 06/15/25 13:26
History of Present Illness
History of Present Illness:
Note:
CHIEF COMPLAINT(S)
Recurrent cellulitis in the right leg with lymphedema.
HISTORY OF PRESENT ILLNESS
The patient is a 75-year-old female with a history of lymphedema in her right leg, currently experiencing a recurrent flare-up of cellulitis. She has been hospitalized previously for similar episodes and was treated with intravenous antibiotics.
After discharge, she was prescribed oral cephalexin, 750 mg four times a day, which she completed. Subsequently, she was advised by an infectious disease specialist to take 500 mg of cephalexin twice a day for six months as a maintenance dose. Two
days ago, the dosage was adjusted to 500 mg, but the cellulitis has flared up again. The patient reports an increase in redness compared to two days prior, and tenderness is present. Despite the current oral antibiotic treatment, the flare-up
persists. The patient reports pulling a groin muscle, resulting in difficulty lifting her right leg.
She reports diarrhea, attributed to prolonged antibiotic use, which fluctuates with her yogurt intake. There is no associated fever, nausea, vomiting, abdominal pain, or dysuria. No profound diarrhea suggesting Clostridium difficile infection is
reported.
ADDITIONAL HISTORY OBTAINED FROM SOURCES OTHER THAN THE PATIENT
Family member at bedside who states her right lower leg recently looked exactly her left lower leg without any redness at all.
EXTERNAL RECORDS REVIEWED
Not applicable.
CHRONIC MEDICAL CONDITIONS SIGNIFICANTLY AFFECTING CARE
Lymphedema in the right leg.
SOCIAL DETERMINANTS AFFECTING HEALTH
Not applicable.
ALLERGIES
Reported allergy to penicillin, specifically amoxicillin, characterized by lip swelling in the past.
PAST MEDICAL HISTORY
Hypertension, hyperlipidemia, GERD, hypothyroidism, cellulitis, lymphedema
PAST SURGICAL HISTORY
, appendectomy, cataracts
FAMILY HISTORY
Not applicable.
MEDICATIONS
Cephalexin 500 mg twice daily
REVIEW OF SYSTEMS
- Dermatological: Increased redness and tenderness in the right leg.
- Musculoskeletal: Difficulty lifting the right leg, possible pulled groin muscle.
- Gastrointestinal: Diarrhea influenced by yogurt intake, not extensive.
PHYSICAL EXAM
General: Alert, cooperative, no acute distress.
Skin: Increased redness on the right leg, extending from ankle to mid-thigh.
Lymph: Mild lymphadenopathy observed.
Lower Extremities: Tenderness and erythema present on the right leg.
Neurological: Alert and oriented, intact mental status.
Respiratory: No respiratory distress.
Gastrointestinal: Abdomen nondistended, no tenderness.
Psychiatric: Appropriate mood and affect.
PROBLEM LIST
1. Acute cellulitis in the right leg
2. Chronic lymphedema in the right leg
PLAN
1. Continue monitoring the erythema and tenderness in the right leg.
2. Consider a review and adjustment of antibiotic therapy. Suggest assessing the efficacy of intravenous therapy if oral antibiotics are insufficient.
3. Discuss the potential role of vancomycin if resistant organisms are suspected.
4. Evaluate physical therapy for possible groin muscle injury and to facilitate leg mobility.
5. Recommend wearing compression stockings after ensuring it is appropriate under current conditions.
6. Continue monitoring bowel movements and adjust probiotic/yogurt intake accordingly to manage diarrhea.
DIFFERENTIAL DIAGNOSIS
The Differential Diagnosis includes, in no particular order and is not limited to:
1. Recurrent bacterial cellulitis
2. Lymphedema-related cellulitis
3. Antibiotic-resistant bacterial infection
4. Deep vein thrombosis (less likely given lack of swelling)
5. Contact dermatitis
6. Venous stasis dermatitis
7. Soft tissue injury (related to reported groin muscle pull)
8. Deep abscess formation (though not observed)
9. Inflammatory skin conditions
10. Secondary fungal infection due to skin compromise
Disposition:
SUMMARY OF ENCOUNTER
The patient, a 75-year-old female, presented to the emergency department with a recurrent flare-up of cellulitis in her right lower extremity, characterized by increased redness and tenderness. The patient reported a recent decrease in her dosage of
cephalexin to 500 mg twice daily for maintenance, as per previous advice, but the cellulitis has intensified. A CBC review showed leukocytosis with a left shift, with 13,000 white count and 93% neutrophils. Despite being on cephalexin, her condition
has deteriorated, necessitating a change in management. Given her stability and persistent symptoms, intravenous vancomycin was administered to address the possibility of antibiotic-resistant bacterial infection. Previous records, including
discharge summaries and past cultures, were reviewed, showing no evidence of blood culture growth from the past.
DISPOSITION
Admit.
ASSESSMENT
The patient has recurrent cellulitis in the right lower extremity, likely due to the development of resistance to previous oral antibiotics. Given her stable hemodynamic status and persistent symptoms, she is being admitted for further management,
including intravenous antibiotic therapy.
EMERGENCY TREATMENTS ADMINISTERED
Intravenous vancomycin was administered to manage the current cellulitis flare-up.
PLAN
The plan involves admission to the hospital for intensive antibiotic therapy with intravenous vancomycin and further monitoring for any changes in her condition, including potential development of sepsis. It also involves reviewing her antibiotic
regimen and considering alternative or adjunct treatments as needed.
INDEPENDENT REVIEW OF LABS AND INTERPRETATION OF TESTS
My independent review of CBC shows leukocytosis with a white count of 13,000 and 93% neutrophils, indicating a bacterial infection.
MEDICATION RECONCILIATION
1. Cephalexin 500 mg was previously taken.
2. Administered intravenous vancomycin in the emergency department.
MEDICAL DECISION MAKING
1. Number and Complexity of Problems Addressed:
Chronic conditions affecting care: Lymphedema in the right leg.
Differential Diagnosis (DDx) includes:
- Recurrent bacterial cellulitis
- Lymphedema-related cellulitis
- Antibiotic-resistant bacterial infection
2. Data: Amount and/or Complexity of Data Reviewed and Analyzed:
Category 1:
- Reviewed prior records including discharge summaries from May 31, 2025.
Category 2:
- CBC indicating leukocytosis with a left shift.
3. Risk:
Given the development of resistance to previous antibiotics and current presentation, admission for aggressive intravenous antibiotic therapy was deemed necessary.
Past History
Past History
ED Past Medical History: HTN, Hypercholesterolemia and Hypothyroidism
Social History
Tobacco: Non-smoker
Alcohol: None
Personal:
Living: with family
Phy Exam
Physical Exam
Physical Exam:
.
Course
Orders/Labs/Results
Orders:
Orders
06/15/25 13:26
Urinalysis Reflex To Culture Urgent
06/15/25 13:53
Complete Blood Count/With Diff Urgent
Comprehensive Metabolic Panel Urgent
Lactic Acid Q4H
Comment: CANCEL 2nd LACTIC ACID IF 1st LACTIC ACID IS LESS THAN 2
Blood Culture Q30M
SALAZAR Source: Blood/Venous
Specimen Description:
06/15/25 14:55
Vancomycin [Vancocin] 2,000 mg 0.9% Sodium Chloride 500 ml [Nss] 500 ml IV NOW
06/15/25 15:09
Blood Culture Q30M
SALAZAR Source: Blood/Venous
Specimen Description:
06/15/25 16:00
CeFAZolin 2 GRAM [Ancef] 2 grams in 10 ml IV Q8H
06/15/25 16:02
Admit/Transfer Patient As Directed
Co-Sign Provider:
Level of Care: Inpatient admission
Assign to:: Medical/Surgical
Physician / Group: Gisele White
Diagnosis: recurrent RLE cellulitis, sepsis
Reason for Hospitalization: recurrent RLE cellulitis, sepsis
Expected length of stay greater than two midnights?: Yes
ELOS- Estimated Length of Stay in days: 3
I certify the patient meets the requirements for IP care: Yes
PRN Pain Medication Management As Directed
May give lesser potent ordered pain med per pt: Yes
preference::
Protocol:: Medication orders for pain may be administered in a
manner that supports deferring to patient preference
when the pt is:
- Requesting an ordered lesser potent pain medication.
Least to most potent pain medications are defined
as: acetaminophen < NSAID < tramadol < opioids
(morphine, oxycodone, hydromorphone).
- Requesting a lesser dose of the same medication IF
ORDERED.
- Requesting a less intrusive route of administration
if both routes are prescribed by the provider (PO <
IV).
06/15/25 16:03
Code Status As Directed
Resuscitation Status: Full Code
06/15/25 16:04
0.9% Sodium Chloride 500 ml [Nss] 500 ml IV BOLUS
06/15/25 16:45
0.9% Sodium Chloride 1000 ml [Nss] 1,000 ml IV 100 mls/hr
06/15/25 17:30
Lactic Acid Q4H
Comment: CANCEL 2nd LACTIC ACID IF 1st LACTIC ACID IS LESS THAN 2
Abnormal Lab Results
06/15/25
13:53
WBC 13.0 H 10^3/uL
(4.8-10.8)
RBC 4.04 L 10^6/uL
(4.20-5.40)
Hgb 11.7 L g/dL
(12.0-16.0)
Hct 35.0 L %
(37.0-47.0)
Abs Immat Gran (auto) 0.1 H 10^3/uL
(0-0.05)
Absolute Neuts (auto) 12.1 H 10^3/uL
(1.4-6.5)
Absolute Lymphs (auto) 0.5 L 10^3/uL
(1.2-3.4)
Neutrophils % 93.1 H %
(42.2-75.2)
Lymphocytes % 3.6 L %
(20.5-51.1)
Chloride 109 H mmol/L
(98-107)
BUN 23 H mg/dl
(7-17)
Glucose 142 H mg/dl
(70-99)
06/15/25 13:53
06/15/25 13:53
Vital Signs
Initial and Last Documented VS:
Initial Vital Signs
Temp Pulse Resp BP Pulse Ox
102.1 F H 83 20 158/70 99
06/15/25 12:25 06/15/25 12:25 06/15/25 12:25 06/15/25 12:25 06/15/25 12:25
Last Documented Vital Signs
Temp Pulse Resp BP Pulse Ox
102.1 F H 83 20 158/70 99
06/15/25 12:25 06/15/25 12:06/15/25 12:06/15/25 12:06/15/25 15:38
*Pulse Oximetry
SaO2: 99
Oxygen Mode of Delivery: Room air
Patient hypoxic: no
*Critical Care Note
Total Time (30-74mins, 75-104mins- exclusive of procedures): Not Applicable
ED Attending Note
-
Portions of this chart may have been created with voice recognition software.� Occasional wrong word or��sound alike� substitutions may have occurred due to the inherent limitations of voice recognition software.
Discharge Plan
Departure
Patient Disposition: Admit
Date of Disposition: 06/15/25
Time of Disposition: 15:35
Admit to: Med/Surg
Presentation/result/management discussed w/ accepting MD/DO: Hospitalist
Discharge Problem:
Cellulitis
Prescriptions:
No Action
sennosides [senna] 8.6 mg Tablet
8.6 mg PO QPM
lisinopril 20 mg Tablet
20 mg PO QPM
amlodipine 5 mg Tablet
5 mg PO QPM
aspirin 81 mg Tablet,Delayed Release (Dr/Ec)
81 mg PO QPM
levothyroxine 125 mcg Tablet
125 mcg PO QPM
docusate sodium 100 mg Capsule
200 mg PO QPM
rosuvastatin 5 mg Tablet
5 mg PO QPM
pantoprazole [Protonix] 40 mg tablet,delayed release (DR/EC)
40 mg PO QPM
cephalexin 500 mg capsule
500 mg PO BID
Rx Instructions:
for 60 days starting 06/09/25
acetaminophen [Tylenol] 325 mg Tablet
650 mg PO Q6HPRN PRN (Reason: fever)
Referrals:
Luma Olsen CRNP [Family Provider, Internal Medicine]
Interventions
Interventions:
*Risk Screen - Suicide Last Done: 06/15/25 14:30
*General Assessment Last Done: 06/15/25 14:30
*Neglect/Abuse Screening Last Done: 06/15/25 14:30
*ED- Fall Risk Assessment Last Done: 06/15/25 14:30
*ED COVID-19 Vaccine History Last Done: 06/15/25 14:30
Discharge Date and Time
Print Language: DIVEHI
--- NOTE | 2025-06-15 15:44 | HPS.HSE ---
Addendum entered and electronically signed by Gisele White MD 06/15/25 16:10:
*Patient states after she completed her course of Keflex from last admission, she was taking BID Keflex for prophylaxis starting 06/11.
Original Note:
Family Physician
-
Family Physician: CHERIE Resendiz
Chief Complaint
-
Right leg swelling
History of Present Illness
Ms. Emmie Peralta is a 75 yo woman with hx lymphedema, recurrent cellulitis, essential HTN, HLD, hypothyroidism, recent admission 05/27-05/31 for RLE cellulitis (s/p treatment with IV Cefazolin, discharged on Keflex) returns to the ER with fevers and
right leg swelling and redness.
Patient states that fever started yesterday. She took a flu and covid test which were negative. She then noticed significant RLE redness starting this morning. No knee or ankle pain.
No cough/congestion. No chest pain. No nausea/vomiting. No diarrhea.
Medical History
Past Medical History
Past Medical History: Reports HTN and Hypercholesterolemia; Denies CHF or NIDDM
Past Surgical History: Reports None
Social History
Tobacco: Non-smoker
Drug: None
Living: With Family
Family History
Family History: Not pertinent
Allergies / Home Medications
Allergies reflects when Allergies were last updated in [facility].
Home Medications with original date entered in [facility]
Allergy/Medication List:
Allergies
Allergy/AdvReac Type Severity Reaction Status Date / Time
Iodinated Contrast Media Allergy Hives Verified 06/15/25 12:28
iohexol (From Omnipaque) Allergy Hives Verified 06/15/25 12:28
levofloxacin (From Levaquin) Allergy Unknown Verified 06/15/25 12:28
Penicillins Allergy Swelling, Verified 06/15/25 12:28
throat
closing up
Home Medications
amlodipine 5 mg tablet 5 mg PO QPM Blood Pressure 01/13/25
aspirin 81 mg tablet,delayed release 81 mg PO QPM Blood Clot Prevention/Tx 01/13/25
docusate sodium 100 mg capsule 200 mg PO QPM Constipation 01/13/25
levothyroxine 125 mcg tablet 125 mcg PO QPM Thyroid 01/13/25
lisinopril 20 mg tablet 20 mg PO QPM Blood Pressure 01/13/25
pantoprazole 40 mg tablet,delayed release (Protonix) 40 mg PO QPM Gastrointestinal Issue 01/13/25
rosuvastatin 5 mg tablet 5 mg PO QPM High Cholesterol 01/13/25
sennosides 8.6 mg tablet (senna) 8.6 mg PO QPM Constipation 01/13/25
acetaminophen 325 mg tablet (Tylenol) 650 mg PO Q6HPRN PRN fever 06/15/25
cephalexin 500 mg capsule 500 mg PO BID residential 06/15/25
Review of Systems
-
History Source: Patient
A 12 point ROS was completed and negative except as noted: Yes
Physical Exam
Vital Signs
Vital Signs
Temp Pulse Resp BP Pulse Ox
102.1 F H 83 20 158/70 99
06/15/25 12:25 06/15/25 12:25 06/15/25 12:25 06/15/25 12:25 06/15/25 15:38
Physical Exam
General: No Apparent Distress
HEENT: PERRLA
Respiratory: Clear; No Wheezes
Cardiac: S1/S2 and Regular Rhythm
GI: Soft and Non Tender
Musculoskeletal: Other (RLE with significant erythema going from ankle to mid thigh )
Skin: Warm and Dry; No Rash
Neuro: AO x 3
Psych: Calm
Laboratory Results
-
06/15/25 13:53
06/15/25 13:53
Laboratory Results
Lactic Acid 1.0 mmol/L (0.7-2.0) 06/15/25 13:53
Total Bilirubin 1.0 mg/dl (0.2-1.3) 06/15/25 13:53
AST 19 U/L (14-36) 06/15/25 13:53
ALT < 10 U/L (0-35) 06/15/25 13:53
Alkaline Phosphatase 56 U/L (38-126) 06/15/25 13:53
Data Reviewed
-
Diagnostic Radiology: Report Reviewed by me
Lab Data: Labs Reviewed by me
Impression/Plan
-
Ms. Emmie Peralta is a 75 yo woman with hx lymphedema, recurrent cellulitis, essential HTN, HLD, hypothyroidism, recent admission 05/27-05/31 for RLE cellulitis (s/p treatment with IV Cefazolin, discharged on Keflex) returns to the ER with right leg
swelling and redness.
Triage VS: T 102.1, P 83, RR 20, BP 158/70, SpO2 99%
LABS: WBC 13, Hg 11.7, PLT 137, Na 136, K+ 4.2, Cl 109, BUN 23, Cr 0.6, Glucose 142, Lactate 1, liver enzymes WNL
Recurrent RLE Cellulitis
Sepsis, POA
Lymphedema
-admit to med/surg
-s/p IV Vanc in ER, will order IV Cefazolin
-RLE elevation
-IVF
-ID consult
Essential HTN
-hypertensive in ER, continue home regimen: Amlodipine, Lisinopril
HLD
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
Hypothyroidism - PERFECT BIND MACHINE OPERATOR Synthroid
DVT PPx - Lovenox subQ
FULL CODE
[2025-06-15] MEDS: ANCEF 10 IV (17:44)
[2025-06-15] MEDS: NSS 500 IV (17:45)
[2025-06-15 17:56] LABS: Urine Character Clear (Clear)
[2025-06-15 18:02] LABS: Urine Squamous Cell >30 /LPF (Few)
[2025-06-15 18:03] LABS: Urine Red Blood Cell 0-2 /HPF (0-2); Urine White Cell 0-2 /HPF (0-5)
[2025-06-15] MEDS: TYLENOL 650 MG PO (18:38)
[2025-06-15 18:43] VITALS: BP 131/45
[2025-06-15] MEDS: NSS 1000 IV (18:43)
[2025-06-15 21:33] VITALS: BP 133/53; BMI 53.4
[2025-06-15] MEDS: CRESTOR 5 MG PO (21:58)
[2025-06-15] MEDS: SENOKOT 8.6 MG PO (21:59)
[2025-06-15] MEDS: PROTONIX 40 MG PO (21:59)
[2025-06-15] MEDS: ASPIR LOW (ENTERIC COATED) 81 MG PO (21:59)
[2025-06-15] MEDS: COLACE 200 MG PO (21:59)
[2025-06-15] MEDS: ZESTRIL 20 MG PO (22:00)
[2025-06-15] MEDS: NORVASC 5 MG PO (22:00)
[2025-06-15] MEDS: LOVENOX 40 MG SC (22:01)
--- NOTE | 2025-06-15 23:02 | PTCARENOTE ---
Pt transferred to 4W. Pt able to walk from stretcher to bed x1 assist. Pt on NSS @100ml/hr. No c/o pain. Pt oriented to room and unit. RLE elevated. Safety measures in place, call cunningham within reach.
[2025-06-15 23:17] VITALS: BP 133/51
[2025-06-16] MEDS: ANCEF 10 IV ×4 (00:05→23:35)
[2025-06-16] MEDS: SYNTHROID 125 MCG PO (04:49)
[2025-06-16 07:00] VITALS: BP 144/64
--- NOTE | 2025-06-16 07:13 | W.PN.HOSP.TC ---
Today's Communication/Plan
-
Continue antibiotics
Assessment / Plan
Assessment / Plan
Assessment:
This is a 75 y/o female with pmhx of Essential Hypertension, Hyperlipidemia, Hypothyroidism who presented to the ED on 06/15/2025 with recurrence of pain, redness and swelling of the right lower extremity due to recurrent cellulitis. She has recently
been admitted to this same hospital in May and April of this year for cellulitis of the same extremity.
Plan:
Recurrent, Non-Purulent Cellulitis of the Right Lower Extremity
-This is the fourth hospitalization this year for cellulitis of the right lower extremity including 05/2025, 04/2025 and 12/2024. Previous antibiotics used include clindamycin (11/2024), doxycycline (concurrent with clindamycin in 12/2024), Bactrim
(Historic) Keflex (04/2025 and 05/2025)
-CT w/o contrast from prior admission in 05/2025 did not show any retained objects that could be contributing to this infection
-Compared to her most recent admission in 05/2025, the erythema is more pronounced and widespread as it now is above the level of her knee and below the level of her ankle.
-Currently on IV Cefazolin
-Infectious disease is following, will appreciate their insight into her case
-Patient may eventually benefit from a lymphovenous bypass to help reduce her lymphedema which could be contributing to her persistent cellulite.
Chronic Lymphedema
-Continue use of compression stockings
-Patient did have to cancel her appointment for 06/17/2025 due to this admission
-Encouraged follow up with the lymphedema clinic
-Patient may eventually benefit from a lymphovenous bypass to help reduce her lymphedema which could be contributing to her persistent cellulitis.
Essential Hypertension
-Continue home meds
Hyperlipidemia
-Continue home meds
Hypothyroidism
-Continue home meds
Constipation
-Continue home meds (Docusate and Senna)
Anticipated Discharge: > 48 hours
Subjective/Interval History
-
Date of Service: June 16, 2025
Patient was doing well when I arrived. She reports that on Friday she began to experience an odd sensation in her leg accompanied by fever and chills. This was followed by a rapid return of erythema and edema and warmth of her right lower extremity
similar to the prior hospitalizations she has experienced this year including her most recent one earlier in May. This worsened and spread over the evening on Friday and into Friday until she returned to the ED.
Today she still experiences redness and swelling in her leg. She has minimal pain on palpation of her right lower extremity. She did have an appointment at the lymphedema clinic scheduled for 06/17/2025 which she had to cancel. We reviewed the
antibiotic regimen she had been discharged on, and she reported compliance with her dosage of Keflex 750mg QID. She had finished this course and transitioned to taking the lesser, maintenance dose of Keflex of 500mg BID, and not long after her
symptoms had abruptly returned.
Objective Data
-
Labs:
Laboratory Results
06/16/25
06:00
WBC Pending
Hgb Pending
Hct Pending
Plt Count Pending
Sodium Pending
Potassium Pending
Chloride Pending
Carbon Dioxide Pending
BUN Pending
Creatinine Pending
Glucose Pending
Calcium Pending
Vital Signs:
Vital Signs
Temp Pulse Resp BP Pulse Ox
98.5 F 71 18 133/51 96
06/15/25 23:17 06/15/25 23:17 06/15/25 23:17 06/15/25 23:17 06/15/25 23:17
I&O
06/15/25 06/16/25 06/17/25
06:59 06:59 06:59
Intake Total 1480 / 1480
Balance 1480 / 1480
Review of Systems
-
History Source: Patient
Constitutional: Reports Fever, Weight Loss (Deliberate 12lb weight loss) and Chills
Respiratory: Denies Cough or Trouble Breathing
Cardiac: Denies Chest Pain, Diaphoresis or Palpitations
Abdomen/GI: Denies Abdominal Pain, Nausea, Vomiting, Diarrhea or Constipated
Musculoskeletal: Reports Muscle Pain (Right groin, reportedly due to muscle strain) and Edema (R leg)
Skin: Reports Rash (See HPI)
Neuro: Denies Dizzy, Headache, Weakness or Numbness
Hematologic / Lymphatic: Reports Lymphedema
Physical Exam
-
General: Well Developed, Well Nourished, No Apparent Distress, Comfortable and Morbidly Obese
HEENT: Normocephalic and Atraumatic
Respiratory: Clear to Auscultation
Cardiac: Regular Rhythm and S1/S2
GI: Soft, Nontender, Nondistended and Normal Bowel Sounds
Musculoskeletal: Edema, Left Lower Extrem (Lymphedema, chronic) and Other (Patient has lymphedema of her right lower extremity with erythema and warmth extending from just below the ankle to above the right knee. The erythematous region extends up
the medial region of the thigh, more significantly than when I saw her previously in May. )
Neuro: Awake, Alert and Oriented
Psych: Calm and Intact Judgement/Insight
[2025-06-16] MEDS: DESENEX/MITRAZOL/ZEASORB 1 APPLIC TOPICAL ×2 (08:50→19:35)
[2025-06-16 10:05] LABS: Hematocrit 32.1 % (37.0-47.0); Hemoglobin 10.3 g/dL (12.0-16.0); Mean Corp Hgb Conc. 32.1 g/dL (33.0-37.0); Mean Corpuscular Volume 89.4 fL (81.0-99.0); Nucleated Red Blood Cells % 0 %; Platelet Count 121 10^3/uL (130-400); Red Cell Dist. Width 14.6 % (11.5-14.5)
[2025-06-16 10:54] LABS: Blood Urea Nitrogen 17 mg/dl (7-17); Calcium 8.3 mg/dl (8.4-10.2); Carbon Dioxide 25 mmol/L (22-30); Chloride 109 mmol/L (98-107); Estimated Creatinine Clearance 97 ml/min; Glucose 92 mg/dl (70-99); Potassium 3.7 mmol/L (3.5-5.1); Sodium 138 mmol/L (135-145); eGFR > 60.00
[2025-06-16] MEDS: TYLENOL 650 MG PO ×2 (13:15→20:54)
--- NOTE | 2025-06-16 15:15 | CON.ID ---
Consultation
-
Date/Time Consultation Requested: 06/15/2025 2102
Date/Time Consultation Performed: 06/16/2025 1500
Requesting Provider: Dr. White
Performing Provider: Dr. Peterson
Reason for Consultation: Right lower extremity cellulitis
Chief Complaint / Past History
History of Present Illness
Emmie Peralta is a 75-year-old female being evaluated in infectious disease consultation regarding recurrent right lower extremity cellulitis. History is obtained from chart review, along with patient interview.
The patient has a significant past medical history of lymphedema, along with morbid obesity. She reports a longstanding history of lymphedema, dating back to early 1999. She has been followed in the lymphedema clinic in the past, and has been
prescribed Farrow wraps which she reports using regularly. Since the beginning of the year she reports several episodes of cellulitis, with her most recent episode in mid�Damaris. At that point in time she was evaluated by me. She was on a course of
IV antibiotics, and following some improvement she was discharged to home, to continue with cephalexin 750 mg 4 times a day. She completed 10 days of keflex following her discharge, and then had moved to keflex 500 mg twice daily in the hopes of
suppression. Unfortunately, 48 hours after transitioning to her suppressive dose she noted increasing right lower extremity erythema, swelling and tenderness. She presented back to the hospital yesterday, and has resumed IV antibiotics.
At the present time she notes ongoing discomfort in the right lower extremity. She does report fever to 102 at presentation to the hospital.
Past History
Additional Past Medical History:
Lymphedema
Morbid obesity (BMI = 53)
HTN
HLD
Hypothyroidism
Additional Past Surgical History:
Appendectomy
x 2
Back surgery
Allergy History:
Iodinated Contrast Media Allergy (Verified 06/15/25 12:28)
Hives
iohexol (From Omnipaque) Allergy (Verified 06/15/25 12:28)
Hives
levofloxacin (From Levaquin) Allergy (Verified 06/15/25 12:28)
Unknown
Penicillins Allergy (Verified 06/15/25 12:28)
Swelling, throat closing up
Medications Reviewed: Yes
Current Antibiotics:
Cefazolin 2 g IV every 8 hours
Social History
Tobacco: Non-Smoker
Alcohol: None
Drug: None
Personal:
Living: With Family
Employment: Retired
Family History
Family History: Not Pertinent
Review of Systems
Vital Signs
Temp Pulse Resp BP Pulse Ox
98.6 F 83 16 144/64 96
06/16/25 07:00 06/16/25 07:00 06/16/25 07:00 06/16/25 07:00 06/16/25 07:00
Physical Exam
Physical Exam
Constitutional: No Acute Distress, Comfortable, Non-toxic and Obese
Head: Normocephalic
Eyes: Pupils Equal, Pupils Round, No Conjunctival Hemorrhage and Sclera Anicteric
Oral: No Thrush
Cardiovascular: S1/S2; Negative S3/S4
Pulmonary: Clear; Negative Wheezes, Rales or Rhonchi
Gastrointestinal: Non Tender and Non Distended
Extremities: Edema (3+ bilateral lower extremities, although greatest in right lower extremity), Erythema (Right foot 2 proximal calf area), Pulses and Other (Right calf area tenderness. Positive warmth); Negative Venous Insufficiency
Musculoskeletal: Negative Joint Swelling or Joint Effusion
Skin: Warm and Dry
Neurological: Awake and Alert
.
Lab / Diagnostic Study Results
06/16/25 09:11
06/16/25 09:11
Abs Immat Gran (auto) 0.0 10^3/uL (0-0.05) 06/16/25 09:11
Absolute Neuts (auto) 7.6 10^3/uL (1.4-6.5) H 06/16/25 09:11
Absolute Lymphs (auto) 0.6 10^3/uL (1.2-3.4) L 06/16/25 09:11
Absolute Monos (auto) 0.4 10^3/uL (0.1-0.6) 06/16/25 09:11
Absolute Basos (auto) 0.0 10^3/uL (0-0.2) 06/16/25 09:11
Immature Gran % 0.3 % (0-0.5) 06/16/25 09:11
Neutrophils % 87.1 % (42.2-75.2) H 06/16/25 09:11
Lymphocytes % 7.0 % (20.5-51.1) L 06/16/25 09:11
Monocytes % 4.3 % (1.7-9.3) 06/16/25 09:11
Eosinophils % 1.1 % (0-6) 06/16/25 09:11
Basophils % 0.2 % (0-2) 06/16/25 09:11
Lactic Acid Cancelled 06/15/25 17:30
Ur Squamous Epith Cells >30 /LPF (Few) 06/15/25 17:46
Microbiology Results
Micro:
06/15/25 15:09 Blood Culture - Preliminary
Blood/Venous No Growth in 24 hours- Final report to follow
06/15/25 13:53 Blood Culture - Preliminary
Blood/Venous No Growth in 24 hours- Final report to follow
06/15/25 17:46 Urine Culture - Pending
Urine
Imaging:
05/27/25 Duplex ultrasound right lower extremity: There is normal compressibility and color Doppler imaging of the right deep venous system from the common femoral vein through the posterior tibial vein with no evidence for deep venous thrombosis.
The proximal right greater saphenous vein is also patent.
Assessment / Plan
Recurrent right lower extremity cellulitis
Leukocytosis
Lymphedema
Morbid obesity (BMI = 53)
HTN
HLD
Hypothyroidism
Recommendations:
Continue with cefazolin 2 gm IV q.8 hours.
Lower extremity elevation.
Lower extremity compressive modalities including Tubigrip's and Fletcher wrap's.
Follow-up for clinical improvement. Once seen, will again transition to an oral regimen although likely for a more extended period of time.
Follow white count and temperature curve.
[2025-06-16 16:00] VITALS: BP 153/52
--- NOTE | 2025-06-16 16:21 | CM ---
loss prevention/safety district manager reviewed patient's chart and met with patient and patient lives with her spouse in a one story home with 2 steps to enter, patient is independent with adl's and ambulation, patient drives, patient with Lymphedema and uses outpatient
wound care center at [facility]. Plan home when stable.
PCP: Luma Olsen
Pharmacy [facility].
[2025-06-16] MEDS: SENOKOT 8.6 MG PO (18:18)
[2025-06-16] MEDS: ZESTRIL 20 MG PO (18:19)
[2025-06-16] MEDS: SENOKOT-S 1 TABLET PO (18:22)
[2025-06-16] MEDS: ASPIR LOW (ENTERIC COATED) 81 MG PO (18:23)
[2025-06-16] MEDS: PROTONIX 40 MG PO (18:23)
[2025-06-16] MEDS: NORVASC 5 MG PO (18:24)
[2025-06-16] MEDS: CRESTOR 5 MG PO (18:24)
[2025-06-16] MEDS: COLACE 200 MG PO (18:25)
[2025-06-16] MEDS: LOVENOX 40 MG SC (18:25)
[2025-06-16 23:51] VITALS: BP 95/60
[2025-06-17] MEDS: SYNTHROID 125 MCG PO (05:36)
--- NOTE | 2025-06-17 06:40 | PTCARENOTE ---
Tubi shaista attempted to be placed on pt at beginning of shift, tubi -food preparer too tight and pt unable to tolerate compression. Pt educated on importance of compression to RLE and willing to try just JESSE wraps but was cautions that JESSE wrap material
would make her sensitive skin itch. ABD pads place between skin and JESSE wrap. Pt tolerated compression all night and requested for wrap to come off at 0600 for a break. RLE maintained elevated on pillows.
[2025-06-17 07:20] VITALS: BP 116/56
[2025-06-17] MEDS: DESENEX/MITRAZOL/ZEASORB 1 APPLIC TOPICAL ×2 (08:38→20:28)
[2025-06-17] MEDS: ANCEF 10 IV ×3 (08:38→23:20)
[2025-06-17 08:49] LABS: Hematocrit 31.2 % (37.0-47.0); Hemoglobin 10.2 g/dL (12.0-16.0); Mean Corp Hgb Conc. 32.7 g/dL (33.0-37.0); Mean Corpuscular Volume 88.1 fL (81.0-99.0); Platelet Count 114 10^3/uL (130-400); Red Cell Dist. Width 14.4 % (11.5-14.5)
[2025-06-17 09:34] LABS: Blood Urea Nitrogen 13 mg/dl (7-17); Calcium 8.4 mg/dl (8.4-10.2); Carbon Dioxide 25 mmol/L (22-30); Chloride 109 mmol/L (98-107); Estimated Creatinine Clearance 97 ml/min; Glucose 93 mg/dl (70-99); Magnesium 1.9 mg/dl (1.6-2.3); Potassium 3.7 mmol/L (3.5-5.1); Sodium 139 mmol/L (135-145); eGFR > 60.00
--- NOTE | 2025-06-17 10:42 | W.PN.HOSP.TC ---
Today's Communication/Plan
-
Continue antibiotics
Assessment / Plan
Assessment / Plan
Assessment:
This is a 75 y/o female with pmhx of Essential Hypertension, Hyperlipidemia, Hypothyroidism who presented to the ED on 06/15/2025 with recurrence of pain, redness and swelling of the right lower extremity due to recurrent cellulitis. She has recently
been admitted to this same hospital in May and April of this year for cellulitis of the same extremity.
Plan:
Recurrent, Non-Purulent Cellulitis of the Right Lower Extremity
-This is the fourth hospitalization this year for cellulitis of the right lower extremity including 05/2025, 04/2025 and 12/2024. Previous antibiotics used include clindamycin (11/2024), doxycycline (concurrent with clindamycin in 12/2024), Bactrim
(Historic) Keflex (04/2025 and 05/2025)
-CT w/o contrast from prior admission in 05/2025 did not show any retained objects that could be contributing to this infection
-Compared to her most recent admission in 05/2025, the erythema is more pronounced and widespread as it now is above the level of her knee and below the level of her ankle.
-Currently on IV Cefazolin
-Infectious disease is following, will appreciate their insight into her case
-Patient may eventually benefit from a lymphovenous bypass to help reduce her lymphedema which could be contributing to her persistent cellulitis.
-Patient's bringing in compression socks to assist with appropriate compression of legs.
Chronic Lymphedema
-Continue use of compression stockings
-Patient did have to cancel her appointment for 06/17/2025 due to this admission
-Encouraged follow up with the lymphedema clinic
-Patient may eventually benefit from a lymphovenous bypass to help reduce her lymphedema which could be contributing to her persistent cellulitis.
Essential Hypertension
-Continue home meds
Hyperlipidemia
-Continue home meds
Hypothyroidism
-Continue home meds
Constipation
-Continue home meds (Docusate and Senna)
Anticipated Discharge: > 48 hours
Subjective/Interval History
-
Date of Service: June 17, 2025
Patient was doing well today when I arrived. She reports she was given tubular compression bandages yesterday, but these did not fit her and she could not get them above her ankles. She instead had her feet wrapped, but states the wrapping was very
tight and she could feel her pulse bounding in her feet. She tolerated the wrapping until 5AM. She is having her bring in compression socks that have been fitted specifically to her legs.
Objective Data
-
Labs:
Laboratory Results
06/17/25
07:09
WBC 5.6
Hgb 10.2 L
Hct 31.2 L
Plt Count 114 L
Sodium 139
Potassium 3.7
Chloride 109 H
Carbon Dioxide 25
BUN 13
Creatinine 0.6
Glucose 93
Calcium 8.4
Vital Signs:
Vital Signs
Temp Pulse Resp BP Pulse Ox
99.1 F 62 24 116/56 95
06/17/25 07:20 06/17/25 07:20 06/17/25 07:20 06/17/25 07:20 06/17/25 07:20
I&O
06/16/25 06/17/25 06/18/25
06:59 06:59 06:59
Intake Total 2620 / 2620
Balance 2620 / 2620
Review of Systems
-
History Source: Patient
Constitutional: Reports Weight Loss (Deliberate, 12lb weight loss since prior admission); Denies Fever, Fatigue, Chills or Weakness
Respiratory: Denies Cough or Trouble Breathing
Cardiac: Denies Chest Pain
Abdomen/GI: Denies Abdominal Pain, Nausea, Vomiting, Diarrhea or Constipated
Genitourinary: Denies Dysuria or Frequency
Musculoskeletal: Reports Edema (Right leg); Denies Joint Pain, Joint Swelling or Muscle Pain
Skin: Reports Rash (Right leg)
Neuro: Denies Dizzy, Headache, Weakness, Numbness or Lightheadedness
Hematologic / Lymphatic: Reports Lymphedema (Chronic, bilateral)
Physical Exam
-
General: Well Developed, Well Nourished, No Apparent Distress, Comfortable and Morbidly Obese
HEENT: Normocephalic and Atraumatic
Respiratory: Clear to Auscultation
Cardiac: Regular Rhythm and S1/S2
Musculoskeletal: Edema, Right Lower Extrem (Lymphedema, unchanged) and Edema, Left Lower Extrem (Lymphedema, unchanged)
Skin: Warm, Dry and Rash (Erythema of the right lower extremity now below the knee, decreased from above the thigh yesterday. It extends down to the midfoot. There is less warmth and swelling to the leg compared to yesterday. The skin is dry and
flaking in some areas.)
Neuro: Awake, Alert and Oriented
Psych: Calm and Intact Judgement/Insight
--- NOTE | 2025-06-17 15:20 | W.PN.ID1 ---
Date of Service
Date of Service: June 17, 2025
Today's Communication
Continue antibiotics.
Assessment / Plan
Recurrent right lower extremity cellulitis
Leukocytosis
Lymphedema
Morbid obesity (BMI = 53)
HTN
HLD
Hypothyroidism
Recommendations:
Continue with cefazolin 2 gm IV q.8 hours.
Lower extremity elevation.
Lower extremity compressive modalities including Tubigrip's and Fletcher wrap's is much as possible, although patient found yesterday's application somewhat uncomfortable.
Follow-up for clinical improvement. Once seen, will again transition to an oral regimen although likely for a more extended period of time.
Follow white count and temperature curve.
Chief Complaint
-: Cellulitis
Subjective / Review of Systems
Review of Systems: No Fever and No Chills
Vital Signs / Physical Exam
Vital Signs
Vital Signs
Temp Pulse Resp BP Pulse Ox
99.1 F 62 24 116/56 95
06/17/25 07:20 06/17/25 07:20 06/17/25 07:20 06/17/25 07:20 06/17/25 08:45
Physical Exam
Constitutional: No Acute Distress, Comfortable and Non-toxic
Eyes: No Conjunctival Hemorrhage
Pulmonary: Non Labored
Extremities: Edema (Right lower extremity slightly diminished.), Erythema (Right lower extremity; improved) and Other (Decreased significant warmth in the right leg)
Neurological: Awake and Alert
Psychological: Calm
Objective Data
Lab Data
Lab Results
06/17/25 07:09
06/17/25 07:09
Estimated Creat Clear 97 ml/min 06/17/25 07:09
Lactic Acid Cancelled 06/15/25 17:30
Total Bilirubin 1.0 mg/dl (0.2-1.3) 06/15/25 13:53
AST 19 U/L (14-36) 06/15/25 13:53
ALT < 10 U/L (0-35) 06/15/25 13:53
Alkaline Phosphatase 56 U/L (38-126) 06/15/25 13:53
Most recent labs reviewed.
Micro Results:
06/15/25 15:09 Blood Culture - Preliminary
Blood/Venous No Growth in 48 hours- Final report to follow
06/15/25 13:53 Blood Culture - Preliminary
Blood/Venous No Growth in 48 hours- Final report to follow
06/15/25 17:46 Urine Culture - Final
Urine No Significant Growth
Imaging:
05/27/25 Duplex ultrasound right lower extremity: There is normal compressibility and color Doppler imaging of the right deep venous system from the common femoral vein through the posterior tibial vein with no evidence for deep venous thrombosis.
The proximal right greater saphenous vein is also patent.
[2025-06-17 15:30] VITALS: BP 131/60
--- NOTE | 2025-06-17 16:13 | CM ---
Home when stable, no needs patient to follow up with outpatient wound care center.
Plan; Home no needs.
[2025-06-17] MEDS: LOVENOX 40 MG SC (17:17)
[2025-06-17] MEDS: ZESTRIL 20 MG PO (17:17)
[2025-06-17] MEDS: ASPIR LOW (ENTERIC COATED) 81 MG PO (17:17)
[2025-06-17] MEDS: COLACE 200 MG PO (17:17)
[2025-06-17] MEDS: CRESTOR 5 MG PO (17:17)
[2025-06-17] MEDS: PROTONIX 40 MG PO (17:18)
[2025-06-17] MEDS: SENOKOT 8.6 MG PO (17:18)
[2025-06-17] MEDS: NORVASC 5 MG PO (17:18)
[2025-06-17 23:12] VITALS: BP 129/52
[2025-06-18] MEDS: SYNTHROID 125 MCG PO (05:51)
[2025-06-18 07:25] VITALS: BP 143/59
[2025-06-18] MEDS: DESENEX/MITRAZOL/ZEASORB 1 APPLIC TOPICAL ×2 (07:54→20:39)
[2025-06-18] MEDS: ANCEF 10 IV ×3 (07:56→23:20)
[2025-06-18 08:21] LABS: Blood Urea Nitrogen 10 mg/dl (7-17); Calcium 7.9 mg/dl (8.4-10.2); Carbon Dioxide 27 mmol/L (22-30); Chloride 109 mmol/L (98-107); Estimated Creatinine Clearance 97 ml/min; Glucose 96 mg/dl (70-99); Potassium 3.8 mmol/L (3.5-5.1); Sodium 141 mmol/L (135-145); eGFR > 60.00
[2025-06-18 09:03] LABS: Hematocrit 29.5 % (37.0-47.0); Hemoglobin 9.7 g/dL (12.0-16.0); Mean Corp Hgb Conc. 32.9 g/dL (33.0-37.0); Mean Corpuscular Volume 88.3 fL (81.0-99.0); Platelet Count 143 10^3/uL (130-400); Red Cell Dist. Width 13.9 % (11.5-14.5)
--- NOTE | 2025-06-18 10:23 | W.PN.HOSP.TC ---
Today's Communication/Plan
-
Continue IV cefazolin 2 g every 8 hours
Continue supportive measures for lymphedema, leg elevation with wedge
OP referral for consideration of lymphovenous bypass
ID recommendations appreciated
Assessment / Plan
Assessment / Plan
Assessment:
This is a 75 y/o female with pmhx of Essential Hypertension, Hyperlipidemia, Hypothyroidism who presented to the ED on 06/15/2025 with recurrence of pain, redness and swelling of the right lower extremity due to recurrent cellulitis. She has recently
been admitted to this same hospital in May and April of this year for cellulitis of the same extremity.
Plan:
Recurrent, Non-Purulent Cellulitis of the Right Lower Extremity
-This is the fourth hospitalization this year for cellulitis of the right lower extremity including 05/2025, 04/2025 and 12/2024. Previous antibiotics used include clindamycin (11/2024), doxycycline (concurrent with clindamycin in 12/2024), Bactrim
(Historic) Keflex (04/2025 and 05/2025)
-CT w/o contrast from prior admission in 05/2025 did not show any retained objects that could be contributing to this infection
-Compared to her most recent admission in 05/2025, the erythema is more pronounced and widespread as it now is above the level of her knee and below the level of her ankle.
-Currently on IV Cefazolin
-Infectious disease is following, will appreciate their insight into her case
-Patient may eventually benefit from a lymphovenous bypass to help reduce her lymphedema which could be contributing to her persistent cellulitis.
-Patient's bringing in compression socks to assist with appropriate compression of legs.
Chronic Lymphedema
-Continue use of compression stockings
-Patient did have to cancel her appointment for 06/17/2025 due to this admission
-Encouraged follow up with the lymphedema clinic
-Patient may eventually benefit from a lymphovenous bypass to help reduce her lymphedema which could be contributing to her persistent cellulitis.
Essential Hypertension
-Continue home meds
Hyperlipidemia
-Continue home meds
Hypothyroidism
-Continue home meds
Constipation
-Continue home meds (Docusate and Senna)
Cholesterol-lowering
Enoxaparin for DVT prophylax
Full code
Anticipated Discharge: > 48 hours
Subjective/Interval History
-
Date of Service: June 18, 2025
Seen and examined at the bedside. No acute events reported overnight. AFVSS this morning
Labs generally stable. Lower extremity with improved tenderness, redness as of this morning
She denies any new complaints, states she feels her leg is getting better
Objective Data
-
Labs:
Laboratory Results
06/18/25
06:20
WBC 5.0
Hgb 9.7 L
Hct 29.5 L
Plt Count 143 D
Sodium 141
Potassium 3.8
Chloride 109 H
Carbon Dioxide 27
BUN 10
Creatinine 0.5 L
Glucose 96
Calcium 7.9 L
Vital Signs:
Vital Signs
Temp Pulse Resp BP Pulse Ox
98.0 F 66 16 143/59 96
06/18/25 07:25 06/18/25 07:25 06/18/25 07:25 06/18/25 07:25 06/18/25 08:20
I&O
06/17/25 06/18/25 06/19/25
06:59 06:59 06:59
Intake Total 2619 / 1689
Balance 2619 / 1689
Review of Systems
-
History Source: Patient
All other systems: Reviewed and negative
Physical Exam
-
General: Well Developed, No Apparent Distress and Morbidly Obese
HEENT: Normocephalic, Atraumatic, Moist Mucous Membranes and Anicteric
Respiratory: Clear to Auscultation and Non Labored Respirations; Negative Accessory Resp Muscle Use
Cardiac: Regular Rhythm and S1/S2; Negative Murmur, Rub or Gallop
GI: Soft, Nontender, Nondistended and Normal Bowel Sounds
Musculoskeletal: No Clubbing, No Cyanosis and Other (Chronic lymphedema though no pitting edema)
Skin: Warm, Dry and Rash (Erythema to the distal RLE, improving, no fluctuance or discharge); Negative Jaundice
Neuro: AO x 3, Nonfocal/Grossly Intact and Central Nerve's Intact
Psych: Calm
Data Reviewed
-
Labs: Labs Reviewed by me and Discussed with Patient
--- NOTE | 2025-06-18 12:26 | W.PN.ID1 ---
Date of Service
Date of Service: June 18, 2025
Today's Communication
Continue antibiotics.
Assessment / Plan
Recurrent right lower extremity cellulitis
Leukocytosis
Lymphedema
Morbid obesity (BMI = 53)
HTN
HLD
Hypothyroidism
Recommendations:
Continue with cefazolin 2 gm IV q.8 hours.
Continue lower extremity elevation.
Continue lower extremity compressive modalities including Tubigrip's and Fletcher wrap's is much as possible.
Follow-up for clinical improvement. Once seen, will again transition to an oral regimen although likely for a more extended period of time.
Follow white count and temperature curve.
����������������������������������������������������������
Chief Complaint
-: Cellulitis
Subjective / Review of Systems
Patient seen and examined. Patient notes less discomfort in the right leg.
Review of Systems: No Fever and No Chills
Vital Signs / Physical Exam
Vital Signs
Vital Signs
Temp Pulse Resp BP Pulse Ox
98.0 F 66 16 143/59 96
06/18/25 07:25 06/18/25 07:25 06/18/25 07:25 06/18/25 07:25 06/18/25 08:20
Physical Exam
Constitutional: No Acute Distress, Comfortable and Non-toxic
Eyes: No Conjunctival Hemorrhage
Pulmonary: Non Labored
Extremities: Edema (Right lower extremity slightly diminished.), Erythema (Right lower extremity; improved) and Other (Decreased significant warmth in the right leg)
Neurological: Awake and Alert
Psychological: Calm
Objective Data
Lab Data
Lab Results
06/18/25 06:20
06/18/25 06:20
Estimated Creat Clear 97 ml/min 06/18/25 06:20
Lactic Acid Cancelled 06/15/25 17:30
Total Bilirubin 1.0 mg/dl (0.2-1.3) 06/15/25 13:53
AST 19 U/L (14-36) 06/15/25 13:53
ALT < 10 U/L (0-35) 06/15/25 13:53
Alkaline Phosphatase 56 U/L (38-126) 06/15/25 13:53
Most recent labs reviewed.
Micro Results:
06/15/25 15:09 Blood Culture - Preliminary
Blood/Venous No Growth in 48 hours- Final report to follow
06/15/25 13:53 Blood Culture - Preliminary
Blood/Venous No Growth in 48 hours- Final report to follow
06/15/25 17:46 Urine Culture - Final
Urine No Significant Growth
Imaging:
05/27/25 Duplex ultrasound right lower extremity: There is normal compressibility and color Doppler imaging of the right deep venous system from the common femoral vein through the posterior tibial vein with no evidence for deep venous thrombosis.
The proximal right greater saphenous vein is also patent.
[2025-06-18 15:30] VITALS: BP 135/56
[2025-06-18] MEDS: CRESTOR 5 MG PO (17:23)
[2025-06-18] MEDS: ASPIR LOW (ENTERIC COATED) 81 MG PO (17:23)
[2025-06-18] MEDS: COLACE 200 MG PO (17:23)
[2025-06-18] MEDS: LOVENOX 40 MG SC (17:23)
[2025-06-18] MEDS: ZESTRIL 20 MG PO (17:24)
[2025-06-18] MEDS: PROTONIX 40 MG PO (17:24)
[2025-06-18] MEDS: SENOKOT 8.6 MG PO (17:24)
[2025-06-18] MEDS: NORVASC 5 MG PO (17:24)
[2025-06-18] MEDS: TYLENOL 650 MG PO (21:42)
[2025-06-18 22:52] VITALS: BP 118/51
[2025-06-18] MEDS: FLUSH (NSS) 1 FLUSH IV (23:21)
[2025-06-19] MEDS: SYNTHROID 125 MCG PO (05:27)
[2025-06-19 05:58] LABS: Hematocrit 29.7 % (37.0-47.0); Hemoglobin 9.8 g/dL (12.0-16.0); Mean Corp Hgb Conc. 33.0 g/dL (33.0-37.0); Mean Corpuscular Volume 88.1 fL (81.0-99.0); Nucleated Red Blood Cells % 0 %; Platelet Count 156 10^3/uL (130-400); Red Cell Dist. Width 13.9 % (11.5-14.5)
[2025-06-19 06:26] LABS: Blood Urea Nitrogen 14 mg/dl (7-17); Calcium 7.8 mg/dl (8.4-10.2); Carbon Dioxide 29 mmol/L (22-30); Chloride 110 mmol/L (98-107); Estimated Creatinine Clearance 97 ml/min; Glucose 96 mg/dl (70-99); Potassium 3.8 mmol/L (3.5-5.1); Sodium 143 mmol/L (135-145); eGFR > 60.00
[2025-06-19 07:50] VITALS: BP 147/70
[2025-06-19] MEDS: DESENEX/MITRAZOL/ZEASORB 1 APPLIC TOPICAL ×2 (08:27→20:18)
[2025-06-19] MEDS: ANCEF 10 IV ×2 (08:27→15:34)
--- NOTE | 2025-06-19 11:58 | W.PN.HOSP.TC ---
Today's Communication/Plan
-
Continue current antibiotics
Oral suppressive regimen per ID
OP follow-up with IR for lymphovenous bypass consideration
Assessment / Plan
Assessment / Plan
Assessment:
This is a 75 y/o female with pmhx of Essential Hypertension, Hyperlipidemia, Hypothyroidism who presented to the ED on 06/15/2025 with recurrence of pain, redness and swelling of the right lower extremity due to recurrent cellulitis. She has recently
been admitted to this same hospital in May and April of this year for cellulitis of the same extremity.
Plan:
Recurrent, Non-Purulent Cellulitis of the Right Lower Extremity
-This is the fourth hospitalization this year for cellulitis of the right lower extremity including 05/2025, 04/2025 and 12/2024. Previous antibiotics used include clindamycin (11/2024), doxycycline (concurrent with clindamycin in 12/2024), Bactrim
(Historic) Keflex (04/2025 and 05/2025)
-CT w/o contrast from prior admission in 05/2025 did not show any retained objects that could be contributing to this infection
-Compared to her most recent admission in 05/2025, the erythema is more pronounced and widespread as it now is above the level of her knee and below the level of her ankle.
-Currently on IV Cefazolin
-Infectious disease is following, will appreciate their insight into her case
-Patient may eventually benefit from a lymphovenous bypass to help reduce her lymphedema which could be contributing to her persistent cellulitis.
-Patient's bringing in compression socks to assist with appropriate compression of legs.
-Continue IV cefazolin 2 g every 8 hours for now, plan for oral suppressive regimen at discharge
-Will provide OP follow-up for [facility] for consideration of lymphovenous bypass
-Continue with aggressive lymphedema supportive care
Chronic Lymphedema
-Continue use of compression stockings
-Patient did have to cancel her appointment for 06/17/2025 due to this admission
-Encouraged follow up with the lymphedema clinic
-Patient may eventually benefit from a lymphovenous bypass to help reduce her lymphedema which could be contributing to her persistent cellulitis.
Essential Hypertension
-Continue home meds
Hyperlipidemia
-Continue home meds
Hypothyroidism
-Continue home meds
Constipation
-Continue home meds (Docusate and Senna)
Cholesterol-lowering
Enoxaparin for DVT prophylax
Full code
Anticipated Discharge: 24 - 48 hours
Subjective/Interval History
-
Date of Service: June 19, 2025
Seen and examined at the bedside. No acute events reported overnight. AFVSS this morning
Labs stable, patient states leg continues to look and feel improved with daily
Denies any new complaints this morning
Objective Data
-
Labs:
Laboratory Results
06/19/25
04:21
WBC 4.3 L
Hgb 9.8 L
Hct 29.7 L
Plt Count 156
Sodium 143
Potassium 3.8
Chloride 110 H
Carbon Dioxide 29
BUN 14
Creatinine 0.5 L
Glucose 96
Calcium 7.8 L
Vital Signs:
Vital Signs
Temp Pulse Resp BP Pulse Ox
98.1 F 68 17 147/70 94
06/19/25 07:50 06/19/25 07:50 06/19/25 07:50 06/19/25 07:50 06/19/25 08:45
I&O
06/18/25 06/19/25 06/20/25
06:59 06:59 06:59
Intake Total 1690 / 1690 800 / 800
Balance 1690 / 1690 800 / 800
Review of Systems
-
History Source: Patient
All other systems: Reviewed and negative
Physical Exam
-
General: Well Developed, Comfortable, Conversant and Morbidly Obese
HEENT: Normocephalic, Atraumatic, Moist Mucous Membranes and Anicteric
Respiratory: Clear to Auscultation and Non Labored Respirations; Negative Accessory Resp Muscle Use
Cardiac: Regular Rhythm and S1/S2; Negative Murmur, Rub or Gallop
GI: Soft, Nontender, Nondistended and Normal Bowel Sounds
Musculoskeletal: No Clubbing, No Cyanosis and Other (Chronic lymphedema to lower extremities, nonpitting)
Skin: Warm, Dry and Rash (Erythematous patch to left lateral calf, otherwise improving, no purulence or fluctuance)
Neuro: AO x 3, Nonfocal/Grossly Intact and Central Nerve's Intact
Psych: Calm
Data Reviewed
-
Labs: Labs Reviewed by me and Discussed with Patient
--- NOTE | 2025-06-19 14:25 | W.PN.ID1 ---
Date of Service
Date of Service: June 19, 2025
Today's Communication
Continue antibiotics. See below�
Assessment / Plan
Recurrent right lower extremity cellulitis
Leukocytosis
Lymphedema
Morbid obesity (BMI = 53)
HTN
HLD
Hypothyroidism
Recommendations:
Continue with cefazolin 2 gm IV q.8 hours.
Continue lower extremity elevation.
Continue lower extremity compressive modalities including Tubigrip's and Fletcher wrap's is much as possible.
Follow-up for clinical improvement. Suspect possible transition to oral Keflex within the next 24 hours.
Follow white count and temperature curve.
����������������������������������������������������������
Chief Complaint
-: Cellulitis
Subjective / Review of Systems
Patient seen and examined. Still with some lower extremity discomfort.
Review of Systems: No Fever and No Chills
Vital Signs / Physical Exam
Vital Signs
Vital Signs
Temp Pulse Resp BP Pulse Ox
98.1 F 68 17 147/70 94
06/19/25 07:50 06/19/25 07:50 06/19/25 07:50 06/19/25 07:50 06/19/25 08:45
Physical Exam
Constitutional: No Acute Distress, Comfortable and Non-toxic
Eyes: No Conjunctival Hemorrhage
Pulmonary: Non Labored
Extremities: Edema (Right lower extremity slightly diminished.), Erythema (Right lower extremity; improved) and Other (Decreased significant warmth in the right leg)
Neurological: Awake and Alert
Psychological: Calm
Objective Data
Lab Data
Lab Results
06/19/25 04:21
06/19/25 04:21
Estimated Creat Clear 97 ml/min 06/19/25 04:21
Lactic Acid Cancelled 06/15/25 17:30
Total Bilirubin 1.0 mg/dl (0.2-1.3) 06/15/25 13:53
AST 19 U/L (14-36) 06/15/25 13:53
ALT < 10 U/L (0-35) 06/15/25 13:53
Alkaline Phosphatase 56 U/L (38-126) 06/15/25 13:53
Most recent labs reviewed.
Micro Results:
06/15/25 13:53 Blood Culture - Preliminary
Blood/Venous No Growth in 4 days- Final report to follow
06/15/25 15:09 Blood Culture - Preliminary
Blood/Venous No Growth in 72 hours- Final report to follow
06/15/25 17:46 Urine Culture - Final
Urine No Significant Growth
Imaging:
05/27/25 Duplex ultrasound right lower extremity: There is normal compressibility and color Doppler imaging of the right deep venous system from the common femoral vein through the posterior tibial vein with no evidence for deep venous thrombosis.
The proximal right greater saphenous vein is also patent.
[2025-06-19 15:21] VITALS: BP 117/65
[2025-06-19] MEDS: CRESTOR 5 MG PO (17:03)
[2025-06-19] MEDS: ASPIR LOW (ENTERIC COATED) 81 MG PO (17:03)
[2025-06-19] MEDS: LOVENOX 40 MG SC (17:03)
[2025-06-19] MEDS: COLACE 200 MG PO (17:03)
[2025-06-19] MEDS: NORVASC 5 MG PO (17:04)
[2025-06-19] MEDS: PROTONIX 40 MG PO (17:04)
[2025-06-19] MEDS: ZESTRIL 20 MG PO (17:04)
[2025-06-19] MEDS: SENOKOT 8.6 MG PO (17:04)
[2025-06-19] MEDS: TYLENOL 650 MG PO (21:30)
[2025-06-19 23:13] VITALS: BP 148/65
[2025-06-20] MEDS: ANCEF 10 IV ×3 (00:04→15:05)
[2025-06-20] MEDS: SYNTHROID 125 MCG PO (05:18)
[2025-06-20 07:20] VITALS: BP 150/72
[2025-06-20] MEDS: DESENEX/MITRAZOL/ZEASORB 1 APPLIC TOPICAL (08:31)
[2025-06-20 08:47] LABS: Hematocrit 32.1 % (37.0-47.0); Hemoglobin 10.3 g/dL (12.0-16.0); Mean Corp Hgb Conc. 32.1 g/dL (33.0-37.0); Mean Corpuscular Volume 87.9 fL (81.0-99.0); Nucleated Red Blood Cells % 0 %; Platelet Count 171 10^3/uL (130-400); Red Cell Dist. Width 13.7 % (11.5-14.5)
[2025-06-20 09:41] LABS: Blood Urea Nitrogen 9 mg/dl (7-17); Calcium 8.2 mg/dl (8.4-10.2); Carbon Dioxide 29 mmol/L (22-30); Chloride 109 mmol/L (98-107); Estimated Creatinine Clearance 97 ml/min; Glucose 95 mg/dl (70-99); Potassium 4.0 mmol/L (3.5-5.1); Sodium 140 mmol/L (135-145); eGFR > 60.00
--- NOTE | 2025-06-20 13:53 | W.PN.ID1 ---
Date of Service
Date of Service: June 20, 2025
Today's Communication
Continue antibiotics.
Assessment / Plan
Recurrent right lower extremity cellulitis
Leukocytosis
Lymphedema
Morbid obesity (BMI = 53)
HTN
HLD
Hypothyroidism
Recommendations:
Overall improvement noted in right lower extremity.
Transition cefazolin to Keflex 1 gm PO QID x 14 days, followed by keflex 1 gm PO BID x 6 months
Continue lower extremity elevation.
Continue lower extremity compressive modalities including Tubigrip's and Fletcher wrap's is much as possible.
Follow white count and temperature curve.
����������������������������������������������������������
Chief Complaint
-: Cellulitis
Subjective / Review of Systems
Patient seen and examined. Patient reports improvement in right lower extremity discomfort.
Review of Systems: No Fever and No Chills
Vital Signs / Physical Exam
Vital Signs
Vital Signs
Temp Pulse Resp BP Pulse Ox
98.8 F 59 16 150/72 96
06/20/25 07:20 06/20/25 07:20 06/20/25 07:20 06/20/25 07:20 06/20/25 08:25
Physical Exam
Constitutional: No Acute Distress, Comfortable and Non-toxic
Eyes: No Conjunctival Hemorrhage
Pulmonary: Non Labored
Extremities: Edema (Right lower extremity slightly diminished.), Erythema (Right lower extremity; improved) and Other (Decreased significant warmth in the right leg)
Neurological: Awake and Alert
Psychological: Calm
Objective Data
Lab Data
Lab Results
06/20/25 07:49
06/20/25 07:49
Estimated Creat Clear 97 ml/min 06/20/25 07:49
Lactic Acid Cancelled 06/15/25 17:30
Total Bilirubin 1.0 mg/dl (0.2-1.3) 06/15/25 13:53
AST 19 U/L (14-36) 06/15/25 13:53
ALT < 10 U/L (0-35) 06/15/25 13:53
Alkaline Phosphatase 56 U/L (38-126) 06/15/25 13:53
Most recent labs reviewed.
Micro Results:
06/15/25 15:09 Blood Culture - Preliminary
Blood/Venous No Growth in 4 days- Final report to follow
06/15/25 13:53 Blood Culture - Preliminary
Blood/Venous No Growth in 4 days- Final report to follow
06/15/25 17:46 Urine Culture - Final
Urine No Significant Growth
Imaging:
05/27/25 Duplex ultrasound right lower extremity: There is normal compressibility and color Doppler imaging of the right deep venous system from the common femoral vein through the posterior tibial vein with no evidence for deep venous thrombosis.
The proximal right greater saphenous vein is also patent.
Care Review
Plan reviewed with: Physician (Hospitalist)
--- NOTE | 2025-06-20 14:49 | W.PN.HOSP.TC ---
Addendum entered and electronically signed by Tiffanie Ponce MD 06/20/25 17:34:
I saw and evaluated the patient independently. I reviewed the resident�s note and agree with findings and plan as documented by Dr. Porter.
GENERAL: well developed, well nourished, morbidly obese female in no apparent distress
HEENT: NC/AT--no O2 requirements
HEART: regular rate and rhythm, +S1, +S2
LUNGS : clear to auscultation bilaterally
ABDOM: soft, nontender, nondistended, + bowel sounds
EXT: no cyanosis, clubbing--bilateral LE lymphedema--faint redness to right LE
NEUROLOGIC: grossly intact
Persistent Cellulitis of the Right Lower Extremity complicated by lymphedema--cont increased dose of IV cefazolin-- blood cultures neg---apprec ID--plan for increased dose of Keflex x 14 days followed by BID keflex x 6 months--follow up with IR at
[facility] for consideration of lymphovenous bypass--LE elevation and compression
Essential Hypertension--cont norvasc/lisinopril
Hyperlipidemia--Continue rosuvastatin
Hypothyroidism--Continue levothyroxine
DVT proph
code status--full code
OK for D/C
Original Note:
Today's Communication/Plan
-
Plant to discharge patient home with Keflex 1 gm PO QID x 14 days, followed by Keflex 1 gm PO BID x 6 months. Patient understands and agrees to this plan.
Assessment / Plan
Assessment / Plan
Assessment:
Patient is a 75 y/o female with past medical history of Essential Hypertension, lymphedema, recurrent cellulitis, Hyperlipidemia and Hypothyroidism who presented to the ED on 06/15/2025 with right lower extremity pain, redness and swelling. She has
recently been hospitalized for the same complaint thrice earlier this year.
Plan:
Recurrent, Non-Purulent Cellulitis of the Right Lower Extremity
-This is the 4th hospitalization this year for right lower extremity cellulitis this year. CT w/o contrast from prior admission in 05/2025 did not show any retained objects that could be contributing to this infection
-Compared to findings on admission, patient's erythema has improved significantly.
- She states her right lower extremity has been improving, and now only has pain to deep palpation. The redness over the area has also improved. She denies fever, chills or any other symptoms.
-ID Dr. Peterson recommends transition from IV cefazolin to Keflex 1 gm PO QID x 14 days, followed by keflex 1 gm PO BID x 6 months
-Will provide OP follow-up for [facility] for consideration of lymphovenous bypass
-Continue lower extremity elevation.
- Continue lower extremity compressive modalities including Tubigrip's and Fletcher wrap's is much as possible.
Chronic Lymphedema
-Continue use of compression stockings
-Patient did have to cancel her appointment for 06/17/2025 due to this admission
-Encouraged follow up with the lymphedema clinic
-Advised to follow [facility] with [facility] for lymphoven[facility] bypass.
Essential Hypertension
-Continue home medications
Hyperlipidemia
-Continue home medications
Hypothyroidism
-Continue home medications
Constipation
-Continue home Docusate and Senna
Diet: Cholesterol-lowering
Anticipated Discharge: Today
Subjective/Interval History
-
Date of Service: June 20, 2025
Patient is a 75 year old female with a past medical history of lymphedema, recurrent cellulitis, essential HTN, HLD, hypothyroidism presented with right leg swelling and redness. Admitted� to the hospital for recurrent right lower extremity
nonpurulent cellulitis. This is her fourth hospitalization this year for cellulitis of the right lower extremity including May 2025, April 2025 and December 2024.�Today, patient states she feels much improved.
Upon examination of patient today, she only has tenderness to deep palpation and erythema has improved significantly. Denies fever, chills or any other symptoms.
Objective Data
-
Labs:
Laboratory Results
06/20/25
07:49
WBC 3.9 L
Hgb 10.3 L
Hct 32.1 L
Plt Count 171
Sodium 140
Potassium 4.0
Chloride 109 H
Carbon Dioxide 29
BUN 9
Creatinine 0.5 L
Glucose 95
Calcium 8.2 L
Vital Signs:
Vital Signs
Temp Pulse Resp BP Pulse Ox
98.8 F 59 16 150/72 96
06/20/25 07:20 06/20/25 07:20 06/20/25 07:20 06/20/25 07:20 06/20/25 08:25
I&O
06/19/25 06/20/25 06/21/25
06:59 06:59 06:59
Intake Total 800 / 800 600 / 600
Balance 800 / 800 600 / 600
Review of Systems
-
History Source: Patient
All other systems: Reviewed and negative
Constitutional: Reports No Symptoms
EENT: Reports No Symptoms Reported
Respiratory: Reports No Symptoms
Cardiac: Reports No Symptoms
Abdomen/GI: Reports No Symptoms
Breast: Reports No Symptoms
Genitourinary: Reports No Symptoms
Musculoskeletal: Reports Edema (Right lower extremity edema)
Skin: Reports Other (Skin redness)
Neuro: Reports No Symptoms
Endocrine: Reports No Symptoms
Hematologic / Lymphatic: Reports No Symptoms
Allergy / Immunology: Reports No Symptoms
Psych: Reports Depressed
Physical Exam
-
General: Well Developed, No Apparent Distress, Comfortable and Morbidly Obese
HEENT: Normocephalic, Atraumatic and Moist Mucous Membranes
Respiratory: Clear to Auscultation
Cardiac: Regular Rhythm, S1/S2 and Murmur (No murmurs heard)
Breast: Deferred by me
GI: Soft, Nontender, Nondistended and Normal Bowel Sounds
Rectal: Deferred by Provider
Genito-urinary: No Costovertebral Tender
Musculoskeletal: No Clubbing, No Cyanosis and Edema, Right Lower Extrem
Skin: Other (Right lower extremity: erythema. Tender to palpation over the area.)
Neuro: AO x 3, No Motor Deficits and Nonfocal/Grossly Intact
Hematologic / Lymphatic: No Lymphadenopathy
Psych: Calm and Intact Judgement/Insight
Data Reviewed
-
Labs: Labs Reviewed by me and Discussed with Physician
Old Records: Reviewed
[2025-06-20 15:42] VITALS: BP 155/77
--- NOTE | 2025-06-20 16:07 | CM ---
Patient seen at bedside on . Patient for discharge home today with no VN per patient request. CM completed review of IMM and signed form placed on chart. Patient has a ride home and no concerns at this time. Patient stated if I need something
I will call my PCP. CM will continue to follow for discharge planning needs.
Plan; home with no needs.
--- NOTE | 2025-06-20 19:19 | W.DCSUMMARY ---
Addendum entered and electronically signed by Tiffanie Ponce MD 06/21/25 07:03:
Read, reviewed, and agree. See same day progress note for additional details. Time spent coordinating care, DC planning, review of DC plan of care with resident, transition of care, review of records in EMR, med rec, consults, notes, d/w
consultants, nursing, family, and CM = 33 minutes
Original Note:
Discharge Summary
Discharge Data
Date of Admission: 06/15/25
Date of Discharge: 06/20/25
-
Pending Results: No
Hospital Course
This is a 75-year-old female with a past medical history of essential hypertension, hyperlipidemia, hypothyroidism who presented to the ED on 06/15/2025 with recurrence of fever starting the day prior, as well as redness and swelling of the right
lower extremity starting that same morning. She has recently been admitted to the same hospital on 05/27/2025 to 05/31/2025 and 05/12/2020 for cellulitis of the same extremity. She also experiencing more symptoms of cellulitis in November and
December of this year.
During her 05/12 to 05/15 admission, an ultrasound of her lower extremities was done which was negative for DVT. She was treated with IV antibiotics and has been discharged to home with Keflex 500 Mg twice daily, but despite active antibiotic
therapy, her cellulitis returned prompting her 06/2025ospitalization. She had a CT scan of her lower extremity without contrast which revealed no retained objects which could be contributing to her frequent and persistent cellulitis. Once
again her symptoms improved with IV antibiotics. She had been discharged to home on Keflex 750 Mg 4 times daily for 10 days followed by suppressive course of Keflex 500 Mg twice daily for 6 months. However after transitioning to suppressive course
her symptoms returned with a fever on 06/14, and redness and swelling of her right lower extremity on the morning of 06/15.
In the ED on 06/15, she received a dose of vancomycin. Infectious disease was consulted and was transitioned to IV cefazolin. By 06/17 her symptoms improved with decreased erythema and edema.
06/16/25: Patient expressed that she was frustrated with multiple hospitalizations for the same complaint but otherwise remained pleasant. With erythema from ankle to mid side circumferentially with no pin or fluctuance. Plan to trend CBC and
temperature curve on IV cefazolin, and monitor leg for improvement. She was placed on low cholesterol, sodium restricted diet. ID Dr. Peterson suggested continuation with cefazolin 2 gm IV q8h, lower extremity elevation, lower extremity compressive
modalities including Tubigrip�s and Fletcher wraps.
06/17/25: No new complaints, and felt well rested. She was unable to wear Tubigrip as it did not fit her leg. Right lower extremity with improving erythema, mostly with distal erythema below level of knee. No purulence or fluctuance. Suggested
patient my benefit from OP lymphovenous bypass.
-06/19/25: No new complaints. Patient states she noticed improvement. Continued antibiotics, oral suppressive regimen per ID.
06/20/28: Patient felt greatly improved with minimal erythema and pain only to deep palpation of extremity. No new symptoms. Plan discharge today. ID Dr. Peterson recommended transition from IV cefazolin to Keflex 1 gm PO WID x 14 days, followed by
Keflex 1 gm PO BID x 6 months. Will provide OP follow up for [facility] for consideration of lymphovenous bypass. Continue lower extremity elevation and lower extremity compressive modalities including Tubigrip�s and Fletcher wraps as much as possible.
Discharge Plan
-
Patient Disposition: Home (Routine Discharge)
Discharge Diagnosis/Procedures: recurrent non-purulent right lower extremity cellulitis, chronic lymphedema, hypertension, hyperlipidemia, hypothyroidism, constipation
Condition: Good
Diet: Low Cholesterol
Activity: As tolerated
Driving Restrictions: As prior to admission
Bathing Restrictions: None
Blood Work: CBC in 1 week; obtain script from PCP
Activity Restrictions/Additional Instructions:
Follow-up with your family doctor within 1 week of discharge from the hospital
Referral provided for interventional radiologist at [facility] (Phna Crump MD), contact their office to schedule an appointment to discuss possibility of lymphovenous bypass procedure
Referrals:
Phan Crump MD [Non-Admitting Privileges, Interventional Radiology] - in two weeks
Igor Peterson DO [Active, Infectious Diseases] - in two weeks
Luma Olsen CRNP [Family Provider, Internal Medicine] - in less than 1 week
Additional Discharge Medication Instructions: Transition cefazolin to Keflex 1 gm PO QID x 14 days, followed by Keflex 1 gm PO BID x 6 months
Prescriptions:
New
miconazole nitrate [Miconazorb AF] 2 % Powder
1 applic topical BID Qty: 1 0RF
bisacodyl 10 mg Suppository
10 mg MO [id number] PRN (Reason: constipation) Qty: 12 0RF
polyethylene glycol 3350 17 gram Powder In Packet
17 g PO DAILYPRN PRN (Reason: constipation) Qty: 14 0RF
cephalexin 500 mg capsule
1,000 mg PO QID Qty: 56 0RF
Continued
sennosides [senna] 8.6 mg Tablet
8.6 mg PO QPM
amlodipine 5 mg Tablet
5 mg PO QPM
aspirin 81 mg Tablet,Delayed Release (Dr/Ec)
81 mg PO QPM
docusate sodium 100 mg Capsule
200 mg PO QPM
rosuvastatin 5 mg Tablet
5 mg PO QPM
pantoprazole [Protonix] 40 mg tablet,delayed release (DR/EC)
40 mg PO QPM
acetaminophen [Tylenol] 325 mg Tablet
650 mg PO Q6HPRN PRN (Reason: fever) Qty: 30 0RF
lisinopril 20 mg Tablet
20 mg PO QPM Qty: 30 0RF
levothyroxine 125 mcg Tablet
125 mcg PO QPM Qty: 30 0RF
Discontinued
cephalexin 500 mg capsule
500 mg PO BID
Rx Instructions:
for 60 days starting 06/09/25
Discharge Orders:
Discharge Patient (As Directed); Ordered 06/20/25
Ordered By: Minoo Porter
Discharge Date and Time
Discharge Date/Time: 06/20/25 17:21
Print Language: BANGLADESHI
== END 2025-06-20 17:21 | disposition home or self-care (01) | DRG 872 ==
LOC: 4 WEST ACU 16:57
PROVIDERS: Internal Medicine; ADMITTING PHYSICIAN Student in an Organized Health Care Education/Training Program; ATTENDING PHYSICIAN Internal Medicine; CONSULT PHYSICIAN Internal Medicine Infectious Disease; EMERGENCY PHYSICIAN Emergency Medicine; FAMILY PHYSICIAN Nurse Practitioner
DX: A41.9 Sepsis, unspecified organism (principal); L03.115 Cellulitis of right lower limb; Z68.43 Body mass index [BMI] 50.0-59.9, adult; I89.0 Lymphedema, not elsewhere classified; E03.9 Hypothyroidism, unspecified; K21.9 Gastro-esophageal reflux disease without esophagitis; I10 Essential (primary) hypertension; K59.00 Constipation, unspecified; E66.01 Morbid (severe) obesity due to excess calories; D72.829 Elevated white blood cell count, unspecified; E78.5 Hyperlipidemia, unspecified; Z79.899 Other long term (current) drug therapy
CPT/HCPCS: 80048; 80053; 81003; 81015; 83605; 83735; 85025; 85027; 87040; 87086; 96374; 99285

== ENCOUNTER → 2025-06-30 15:23 | Outpatient (REF) | payer MEDICARE, OTHER, SELFPAY ==
[2025-06-30 16:37] LABS: Hematocrit 38.7 % (37.0-47.0); Hemoglobin 12.7 g/dL (12.0-16.0); Mean Corp Hgb Conc. 32.8 g/dL (33.0-37.0); Mean Corpuscular Volume 87.2 fL (81.0-99.0); Nucleated Red Blood Cells % 0 %; Platelet Count 243 10^3/uL (130-400); Red Cell Dist. Width 14.4 % (11.5-14.5)
[2025-06-30 16:52] LABS: ALT (SGPT) < 10 U/L (0-35); AST (SGOT) 18 U/L (14-36); Albumin 4.3 g/dl (3.5-5.0); Alkaline Phosphatase 56 U/L (38-126); Blood Urea Nitrogen 14 mg/dl (7-17); Calcium 9.3 mg/dl (8.4-10.2); Carbon Dioxide 24 mmol/L (22-30); Chloride 106 mmol/L (98-107); Glucose 102 mg/dl (70-99); HDL Cholesterol 57 mg/dl; Iron 74 ug/dl (37-170); LDL Cholesterol, Calculated 93 mg/dl; Potassium 4.7 mmol/L (3.5-5.1); Sodium 138 mmol/L (135-145); Total Protein 6.9 g/dl (6.3-8.2); Very Low Density Lipoprotein 14 mg/dl (0-30); eGFR > 60.00
[2025-06-30 17:23] LABS: TSH 0.72 uIU/ml (0.47-4.68)
[2025-06-30 17:27] LABS: Ferritin 46.1 ng/ml (11.1-264.0)
== END ==
LOC: REG 15:23
PROVIDERS: ATTENDING PHYSICIAN Nurse Practitioner
DX: L03.115 Cellulitis of right lower limb (principal); I89.0 Lymphedema, not elsewhere classified; L30.9 Dermatitis, unspecified; E66.01 Morbid (severe) obesity due to excess calories; M71.21 Synovial cyst of popliteal space [Baker], right knee; D64.9 Anemia, unspecified; I10 Essential (primary) hypertension
CPT/HCPCS: 36415; 80053; 80061; 82728; 83540; 84443; 85025

== ENCOUNTER 2025-07-19 10:13 | Outpatient (RCR) | payer MEDICARE, OTHER, SELFPAY | END 2025-07-19 23:59 | disposition home or self-care (01) | LOC: RPT 10:13 | PROVIDERS: ATTENDING PHYSICIAN Nurse Practitioner | DX: I89.0 Lymphedema, not elsewhere classified (principal); D72.810 Lymphocytopenia; Z73.6 Limitation of activities due to disability; R26.89 Other abnormalities of gait and mobility | CPT/HCPCS: 97164; 97530 ==

== ENCOUNTER 2025-08-10 23:13 | Inpatient (IN) | payer MEDICARE, OTHER, SELFPAY ==
[2025-08-10 19:01] VITALS: BP 151/67
[2025-08-10 19:25] LABS: Hematocrit 40.1 % (37.0-47.0); Hemoglobin 13.3 g/dL (12.0-16.0); Mean Corp Hgb Conc. 33.2 g/dL (33.0-37.0); Mean Corpuscular Volume 85.9 fL (81.0-99.0); Nucleated Red Blood Cells % 0 %; Platelet Count 161 10^3/uL (130-400); Red Cell Dist. Width 14.6 % (11.5-14.5)
[2025-08-10 19:49] LABS: ALT (SGPT) < 10 U/L (0-35); AST (SGOT) 17 U/L (14-36); Albumin 4.4 g/dl (3.5-5.0); Alkaline Phosphatase 61 U/L (38-126); Blood Urea Nitrogen 18 mg/dl (7-17); Calcium 9.1 mg/dl (8.4-10.2); Carbon Dioxide 22 mmol/L (22-30); Chloride 104 mmol/L (98-107); Glucose 109 mg/dl (70-99); Potassium 4.1 mmol/L (3.5-5.1); Sodium 137 mmol/L (135-145); Total Protein 6.9 g/dl (6.3-8.2); eGFR > 60.00
--- NOTE | 2025-08-10 21:38 | ED.GENMED ---
History of Present Illness
General
Chief Complaint: Skin Problem
Time Seen by Provider: 08/10/25 21:38
History of Present Illness
History of Present Illness:
FOCUSED PAST MEDICAL HISTORY
- Recurrent cellulitis
REVIEW OF OLD RECORDS
- I reviewed IDs note from May [address]25 and at that time [address] Peterson recommended 2 g of IV Ancef every 8 hours
Note:
CHIEF COMPLAINT(S)
Leg infection.
HISTORY OF PRESENT ILLNESS
The patient is a 75-year-old female with a history of recurrent leg infections requiring intravenous antibiotics. She presents to the emergency department with a warm and erythematous leg. She reports being previously prescribed oral Cephalexin at
1000 milligrams four times daily for 28 days; however, the leg remains erythematous and warm. The patient has experienced similar episodes that improved with intravenous Ancef,, which was administered during past hospitalizations. She was seen by
her primary care physician today, who noted the lack of improvement and advised seeking emergency care. The patient reports experiencing a fever earlier this afternoon, with a temperature peaking at 100.8�F. Blood cultures have been drawn, and there
is a plan to start intravenous Ancef. The patient�s white blood cell count is elevated at 12.2 x10^3/uL, which has been a recurring finding in her medical history.
EXTERNAL RECORDS REVIEWED
Review of the patients previous records indicates multiple past visits to the hospital for similar presentations requiring IV antibiotics.
PHYSICAL EXAM
General: Alert, no acute distress. Elevated BMI
Skin: Erythematous and warm to touch at the affected leg.
Head: Normocephalic, atraumatic.
Neck: Supple, trachea midline.
Eye Ears, nose, mouth and throat: Oral mucosa moist.
Cardiovascular: Normal peripheral perfusion, no edema.
Respiratory: Respirations are non-labored.
Gastrointestinal: Abdomen nondistended.
Back: Normal range of motion, normal alignment.
Musculoskeletal: Both lower extremities are lymphedematous however the right lower extremity has marked warmth and erythema to a relatively large area of the distal right lower extremity
Neurological: Alert and oriented to person, place, time, and situation. No focal neurological deficit observed.
Psychiatric: Cooperative, appropriate mood and affect.
PROBLEM LIST
Acute:
- Active leg infection with fever and leukocytosis
Chronic:
- Recurrent leg infections requiring intravenous antibiotics
PLAN
- Initiate IV Cefazolin (ANSEF) for the treatment of the leg infection.
- Consult hospitalist for admission considering the history of recurrent infections and current lack of improvement on oral antibiotics.
- Continue monitoring vital signs and obtain repeat blood cultures as necessary.
DIFFERENTIAL DIAGNOSIS
The Differential Diagnosis includes, in no particular order and is not limited to:
- Cellulitis
- Venous stasis dermatitis
- Septicemia
- Necrotizing fasciitis
- Osteomyelitis
- Deep vein thrombosis
- Erysipelas
- Lymphangitis
- Drug-induced rash or reaction
- Contact dermatitis
LABS
- White count 12.2, hemoglobin normal, lactic 1.1
UPDATE
-SUMMARY OF ENCOUNTER
The patient presented to the emergency department with significant signs of cellulitis in the right lower extremity, a recurring problem for her. Despite being previously treated with oral Cephalexin, there has been no significant improvement. The
patient has a history of responding well to intravenous Cefazolin in past episodes. During this visit, leukocytosis was noted. Due to persistent symptoms and her medical history, a plan was made for hospital admission to initiate intravenous
Cefazolin (Ancef) treatment.
DISPOSITION
Admit
ASSESSMENT
The primary assessment is cellulitis of the right lower extremity with associated leukocytosis, refractory to oral antibiotics, and requiring intravenous management.
EMERGENCY TREATMENTS ADMINISTERED
Intravenous Cefazolin (Ancef) was administered as the patient had a history of positive response to this treatment for similar infections.
MANAGEMENT OF THE PATIENTS CARE WAS DISCUSSED WITH
The hospitalist was consulted for the patients admission due to the need for intravenous antibiotic treatment.
PLAN
Administer intravenous Cefazolin (Ancef) for treatment.
Admit patient for observation and further management due to recurrent infection and non-response to oral antibiotics.
INDEPENDENT REVIEW OF LABS AND INTERPRETATION OF TESTS
My independent review of CBC indicates leukocytosis with a white blood cell count noted to be elevated.
MEDICAL DECISION MAKING
Chronic conditions affecting care: Recurrent leg infections requiring intravenous antibiotics.
Differential Diagnosis: Cellulitis, Venous stasis dermatitis, Septicemia, Necrotizing fasciitis, Osteomyelitis, Deep vein thrombosis, Erysipelas, Lymphangitis, Drug-induced rash or reaction, Contact dermatitis.
Data:
Category 1
External record reviewed: The patients previous medical history indicates recurrent infections necessitating IV antibiotics.
Category 3
Discussion of management with a hospitalist due to the necessity for inpatient admission and treatment with IV Cefazolin.
Risk:
Prescription medication was prescribed. Intravenous Cefazolin (Ancef) was administered due to the risk associated with refractory cellulitis and elevated white blood cell count.
DIAGNOSIS
Cellulitis of the right lower extremity, ICD-10: L03.115
Leukocytosis, unspecified, ICD-10: D72.829
Past History
Past History
ED Past Medical History: HTN, Hypercholesterolemia and Hypothyroidism
Social History
Tobacco: Non-smoker
Alcohol: None
Personal:
Living: with family
Phy Exam
Physical Exam
Physical Exam:
See HPI
Course
Orders/Labs/Results
Orders:
Orders
08/10/25 19:12
Complete Blood Count/With Diff Urgent
Comprehensive Metabolic Panel Urgent
Lactate Level [Lactic Acid] Q4H
Blood Culture Urgent
SALAZAR Source: Blood/Venous
Specimen Description:
08/10/25 19:15
Lactate Level [Lactic Acid] Q4H
08/10/25 19:36
Blood Culture Routine
SALAZAR Source: Blood/Venous
Specimen Description:
08/10/25 21:59
CeFAZolin 2 grams IV Push NOW CeFAZolin 2 GRAM [Ancef] 2 grams in 10 ml IV NOW
Abnormal Lab Results
08/10/25
19:12
WBC 12.2 H 10^3/uL
(4.8-10.8)
RDW 14.6 H %
(11.5-14.5)
MPV 10.7 H fL
(7.4-10.4)
Absolute Neuts (auto) 11.4 H 10^3/uL
(1.4-6.5)
Absolute Lymphs (auto) 0.3 L 10^3/uL
(1.2-3.4)
Neutrophils % 93.1 H %
(42.2-75.2)
Lymphocytes % 2.6 L %
(20.5-51.1)
BUN 18 H mg/dl
(7-17)
Glucose 109 H mg/dl
(70-99)
08/10/25 19:12
08/10/25 19:12
Vital Signs
Initial and Last Documented VS:
Initial Vital Signs
Temp Pulse Resp BP Pulse Ox
37.2 C 102 16 151/67 97
08/10/25 19:01 08/10/25 19:01 08/10/25 19:01 08/10/25 19:01 08/10/25 19:01
Last Documented Vital Signs
Temp Pulse Resp BP Pulse Ox
37.2 C 87 21 145/61 95
08/10/25 19:01 08/10/25 21:45 08/10/25 21:45 08/10/25 21:44 08/10/25 21:45
*Pulse Oximetry
SaO2: 97
Oxygen Mode of Delivery: Room air
Patient hypoxic: no
*Critical Care Note
Total Time (30-74mins, 75-104mins- exclusive of procedures): Not Applicable
ED Attending Note
-
Portions of this chart may have been created with voice recognition software.� Occasional wrong word or��sound alike� substitutions may have occurred due to the inherent limitations of voice recognition software.
Discharge Plan
Departure
Prescriptions:
No Action
sennosides [senna] 8.6 mg Tablet
8.6 mg PO QPM
amlodipine 5 mg Tablet
5 mg PO QPM
aspirin 81 mg Tablet,Delayed Release (Dr/Ec)
81 mg PO QPM
docusate sodium 100 mg Capsule
200 mg PO QPM
rosuvastatin 5 mg Tablet
5 mg PO QPM
pantoprazole [Protonix] 40 mg tablet,delayed release (DR/EC)
40 mg PO QPM
miconazole nitrate [Miconazorb AF] 2 % Powder
1 applic topical BID Qty: 1 0RF
bisacodyl 10 mg Suppository
10 mg NV [id number] PRN (Reason: constipation) Qty: 12 0RF
polyethylene glycol 3350 17 gram Powder In Packet
17 g PO DAILYPRN PRN (Reason: constipation) Qty: 14 0RF
acetaminophen [Tylenol] 325 mg Tablet
650 mg PO Q6HPRN PRN (Reason: fever) Qty: 30 0RF
lisinopril 20 mg Tablet
20 mg PO QPM Qty: 30 0RF
levothyroxine 125 mcg Tablet
125 mcg PO QPM Qty: 30 0RF
cephalexin 500 mg capsule
1,000 mg PO QID Qty: 56 0RF
Referrals:
Lmua Olsen CRNP [Family Provider, Internal Medicine]
Interventions
Interventions:
*Risk Screen - Suicide Last Done: 08/10/25 21:47
*General Assessment Last Done: 08/10/25 21:45
*Neglect/Abuse Screening Last Done: 08/10/25 21:45
*ED COVID-19 Vaccine History Last Done: 08/10/25 21:45
Discharge Date and Time
Print Language: KYRGYZ
[2025-08-10 21:40] VITALS: BMI 50.9
[2025-08-10 21:44] VITALS: BP 145/61
[2025-08-10 22:05] VITALS: BP 128/45
--- NOTE | 2025-08-10 22:14 | HPS.HSE ---
Family Physician
-
Family Physician: CHERIE Resendiz
Chief Complaint
-
RLE cellulitis
History of Present Illness
Patient is a 75-year-old female with past medical history significant for hypertension, hypercholesterolemia, hypothyroid, GERD, lymphedema of right lower extremity and recurrent RLE cellulitis who presented to [facility] ED for evaluation of RLE
cellulitis. Patient reports that she has had recurrent cellulitis in right lower extremity since May, she is currently on long course of Keflex as treatment. Patient last hospitalization was 06/15/2025 - 06/20/2025 and has been on Keflex at home
since. She reports leg has been looking good for the past 1-2 weeks but today when she went to lymphedema therapist it was noted that right posterior calf now had erythema and was warm to touch. Patient after session at therapy was seen in primary
care office where a second antibiotic was going to be ordered but then patient spiked a temp to 100.8F so came to ED for evaluation instead. Denies chills, cough, shortness of breath, chest pain, nausea, vomiting, constipation, diarrhea or urinary
symptoms. Off note patient reports fall getting OOB on Friday, had head strike, workup done at [facility] and was unremarkable.
Medical History
Past Medical History
Past Medical History: Reports Other
Additional Past Medical History:
hypertension
hypercholesterolemia
hypothyroid
GERD
Lymphedema of right lower extremity
Recurrent RLE cellulitis
Diverticulitis 02/2022
Past Surgical History: Reports Other
Additional Past Surgical History:
Appendectomy
x 2
back surgery
Social History
Tobacco: Non-smoker
Alcohol: None
Drug: None
Living: With Family
Family History
Family History: Not pertinent
Allergies / Home Medications
Allergies reflects when Allergies were last updated in [facility].
Home Medications with original date entered in [facility]
Allergy/Medication List:
Allergies
Allergy/AdvReac Type Severity Reaction Status Date / Time
Iodinated Contrast Media Allergy Hives Verified 08/10/25 19:04
iohexol (From Omnipaque) Allergy Hives Verified 08/10/25 19:04
levofloxacin (From Levaquin) Allergy Unknown Verified 08/10/25 19:04
Penicillins Allergy Swelling, Verified 08/10/25 19:04
throat
closing up
Home Medications
amlodipine 5 mg tablet 5 mg PO QPM Blood Pressure 01/13/25
aspirin 81 mg tablet,delayed release 81 mg PO QPM Blood Clot Prevention/Tx 01/13/25
pantoprazole 40 mg tablet,delayed release (Protonix) 40 mg PO QPM Gastrointestinal Issue 01/13/25
rosuvastatin 5 mg tablet 5 mg PO QPM High Cholesterol 01/13/25
levothyroxine 125 mcg tablet 125 mcg PO QPM Thyroid #30 tabs 06/20/25
lisinopril 20 mg tablet 20 mg PO QPM Blood Pressure #30 tabs 06/20/25
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
Review of Systems
-
History Source: Patient
Constitutional: Reports Fever; Denies Chills
EENT: Denies Sore Throat
Respiratory: Denies Cough or Trouble Breathing
Cardiac: Denies Chest Pain, Diaphoresis or Palpitations
Abdomen/GI: Denies Abdominal Pain, Nausea, Vomiting or Diarrhea
: Reports No Symptoms
Musculoskeletal: Reports No Symptoms
Skin: Reports Other (bruising to BLLE )
Neurological: Reports No Symptoms
Endocrine: Reports No Symptoms
Hematologic/Lymphatic: Reports No Symptoms
Psych: Reports No Symptoms
Physical Exam
Vital Signs
Vital Signs
Temp Pulse Resp BP Pulse Ox
99.0 F 87 21 145/61 97
08/10/25 19:01 08/10/25 21:45 08/10/25 21:45 08/10/25 21:44 08/10/25 22:01
Physical Exam
General: Well Developed, Well Nourished, No Apparent Distress, Comfortable, Conversant and Morbidly Obese
HEENT: NormoCephalic, Moist mucous membranes and Atraumatic
Respiratory: Clear and Non Labored Respirations
Cardiac: S1/S2 and Regular Rhythm; No Murmur, Rub or Gallop
Breast: Deferred by me
GI: Soft, Non Tender, Non Distended and Normal Bowel Sounds; No Organomegaly
Rectal: Deferred by Provider
Genito-urinary: Deferred by me
Musculoskeletal: No Clubbing, No Cyanosis, Edema, Left Lower Extremity and Edema, Right Lower Extremity
Skin: Warm and IV/Catheter Site; No Rash
Neuro: Awake, AO x 3 and Nonfocal/grossly intact
Psych: Calm and Intact Judgment/Insight
Laboratory Results
-
08/10/25 19:12
08/10/25 19:12
Laboratory Results
Lactic Acid 1.1 mmol/L (0.7-2.0) 08/10/25 19:12
Total Bilirubin 0.7 mg/dl (0.2-1.3) 08/10/25 19:12
AST 17 U/L (14-36) 08/10/25 19:12
ALT < 10 U/L (0-35) 08/10/25 19:12
Alkaline Phosphatase 61 U/L (38-126) 08/10/25 19:12
Data Reviewed
-
Lab Data: Labs Reviewed by me (WBC 12.2, Neut 93.1)
Impression/Plan
-
IMPRESSION/PLAN:
#sepsis 2/2 Recurrent RLE cellulitis
WBC 12.2, Neut 93.1
- Admit to med/surg
- IV Ancef 2gm q8
- Consult ID
- supportive care
#hypertension
- continue amlodipine and lisinopril
#hypercholesterolemia
- continue rosuvastatin
#hypothyroid
- continue levothyroxine
#GERD
- continue pantoprazole
Code status: full code
DVT prophylaxis: lovenox sq
[2025-08-10] MEDS: ANCEF 10 IV (22:16)
[2025-08-10 23:00] VITALS: BP 120/48
--- NOTE | 2025-08-10 23:11 | W.PN.UPDATE ---
Update Note
Progress Note Update
Patient seen in conjunction with CHERIE. I agree with the findings and physical and I concur with the assessment and plan.
This is a 75-year-old female with past medical history of hyperlipidemia, hypothyroid, hypertension, chronic lymphedema who has had repeated hospitalizations for her lower extremity cellulitis over the last several months. During her last
evaluation she was told to stay on suppressive cephalexin and that she has been on suppressive cephalexin for the last 28 days. She stated that she had been on a dose of 1 g 3 times daily. She has had no new findings up until today. Few days ago
she did have a fall and had multiple bruising including a lower back lower extremity and she was evaluated at an outside hospital. She had no trauma and was discharged home. She was doing well. When she woke up this morning she went to her
lymphedema therapist wound noticed erythema in the right lower extremity. She said that she needed to follow-up with the PMD. When she followed up with her PMD PMD give a prescription and option to go to the hospital or take additional medications
at home. When patient arrived home she started having chills and measured a fever of 100.8.
On arrival in the emergency department temp was 99, blood pressure 128/45 with a pulse rate of 81 and she was satting 95% on room air. She had a WBC of 12.1 otherwise CBC was unremarkable. Electrolyte BUN/creatinine were normal.
Examination of the skin shows no spreading of the erythema beyond the initial demarcation from this morning.
Assessment and plan this is a 75-year-old whose had recurrent admissions for cellulitis thought to be secondary to lymphedema. She has responded very well to cephalosporins in the past and specifically cefazolin and was on suppressive cephalexin
until now. She reported that she did start taking Zepbound recently with about 30 pound weight loss. Some concern for changes in absorption pattern of her antibiotics. She currently does have cellulitis with systemic findings but is otherwise
well-appearing.
Admit to [facility]
� Blood cultures
� MRSA swab
� IV cefazolin
� ID consultation
�Keep limb elevated
Will continue other usual medications as per home regimen
DVT prophylaxis -Lovenox subcu
CODE STATUS�full code
[2025-08-11 00:21] VITALS: BP 105/73; BMI 48.9
--- NOTE | 2025-08-11 00:30 | PTCARENOTE ---
Patient received from ED, able to ambulate from stretcher to bed. AAOX3, apical regular, +3 edema to BLLE, weak but palpable pulses. Lungs clear on room air. Abdomen obese with positive bowel sounds. Voids. RLE red and warm, #20 g in LFA
flushed and patent.
[2025-08-11] MEDS: SENOKOT-S 1 TABLET PO (05:37)
[2025-08-11] MEDS: SYNTHROID 125 MCG PO (05:37)
[2025-08-11] MEDS: ANCEF 10 IV ×3 (05:38→20:42)
[2025-08-11 07:55] LABS: Hematocrit 32.1 % (37.0-47.0); Hemoglobin 10.8 g/dL (12.0-16.0); Mean Corp Hgb Conc. 33.6 g/dL (33.0-37.0); Mean Corpuscular Volume 87.0 fL (81.0-99.0); Platelet Count 145 10^3/uL (130-400); Red Cell Dist. Width 14.6 % (11.5-14.5)
[2025-08-11 08:27] LABS: Blood Urea Nitrogen 19 mg/dl (7-17); Calcium 8.8 mg/dl (8.4-10.2); Carbon Dioxide 24 mmol/L (22-30); Chloride 105 mmol/L (98-107); Estimated Creatinine Clearance 92 ml/min; Glucose 89 mg/dl (70-99); Potassium 3.5 mmol/L (3.5-5.1); Sodium 137 mmol/L (135-145); eGFR > 60.00
[2025-08-11 08:59] VITALS: BP 139/48
--- NOTE | 2025-08-11 11:37 | CON.ID ---
Consultation
-
Date/Time Consultation Requested: 08/11/2025 0021
Date/Time Consultation Performed: 08/11/2025 1138
Requesting Provider: Paula Knapp
Performing Provider: Dr. Peterson
Reason for Consultation: Lower extremity cellulitis
Chief Complaint / Past History
History of Present Illness
Emmie Peralta is a 75-year-old female with a significant past medical history of recurrent lower extremity cellulitis, lymphedema and morbid obesity being evaluated at the request of Dr. Plasencia regarding recurrence of cellulitis. History is
obtained from chart review, along with patient interview.
The patient is known to the Infectious Diseases service, having been seen on prior admissions, most recently in late May, for right lower extremity cellulitis. At that time, she improved on IV antibiotics and was discharged on Keflex for an
additional 14 days. Thereafter, she was transitioned to Keflex 1 gm p.o. BID x 6 months and attempt at suppression.
She reports that she has been followed at the lymphedema center at the [facility] by Dr. Deidre Lamb. She has been using lower extremity compressive modalities including lymphatic pump and compression stockings with neoprene
wrappings.
She was doing well until Friday (4 days ago) when at 1 AM she slid off her bed and she reports that she landed face down on a piece of furniture. She states that she banged up her knee and thigh, and noted a small abrasion on the right knee. She
was seen at [facility], but discharged. The following day she was doing okay, but yesterday she notes that she had a small area of erythema and on the medial aspect of her right calf area later in the evening she developed fever and she
thereafter came to the emergency room for further evaluation. She has been started on empiric antibiotics.
At this time, she notes continued erythema of the right leg. She notes mild discomfort. She has not had any fevers since admission.
Past History
Additional Past Medical History:
Lymphedema
Morbid obesity (BMI = 53)
HTN
HLD
Hypothyroidism
Additional Past Surgical History:
Appendectomy
x 2
Back surgery
Allergy History:
Iodinated Contrast Media Allergy (Verified 08/10/25 19:04)
Hives
iohexol (From Omnipaque) Allergy (Verified 08/10/25 19:04)
Hives
levofloxacin (From Levaquin) Allergy (Verified 08/10/25 19:04)
Unknown
Penicillins Allergy (Verified 08/10/25 19:04)
Swelling, throat closing up
Medications Reviewed: Yes
Current Antibiotics:
Cefazolin 2 g IV every 8 hours
Social History
Tobacco: Non-Smoker
Alcohol: None
Drug: None
Personal:
Living: With Family
Employment: Retired
Family History
Family History: Not Pertinent
Review of Systems
Vital Signs
Temp Pulse Resp BP Pulse Ox
97.6 F 73 20 139/48 96
08/11/25 08:59 08/11/25 08:59 08/11/25 08:59 08/11/25 08:59 08/11/25 08:59
Physical Exam
Physical Exam
Constitutional: No Acute Distress, Comfortable, Non-toxic and Obese
Head: Normocephalic
Eyes: Pupils Equal, Pupils Round, No Conjunctival Hemorrhage and Sclera Anicteric
Oral: No Thrush
Cardiovascular: S1/S2; Negative S3/S4
Pulmonary: Clear; Negative Wheezes, Rales or Rhonchi
Gastrointestinal: Non Tender and Non Distended
Extremities: Edema (3+ bilateral lower extremities, although greatest in right lower extremity), Erythema (Right foot 2 proximal calf area), Pulses and Other (Right calf area tenderness. Positive warmth); Negative Venous Insufficiency
Musculoskeletal: Negative Joint Swelling or Joint Effusion
Skin: Warm and Dry
Neurological: Awake and Alert
.
Lab / Diagnostic Study Results
08/11/25 06:49
08/11/25 06:49
Abs Immat Gran (auto) 0.0 10^3/uL (0-0.05) 08/10/25 19:12
Absolute Neuts (auto) 11.4 10^3/uL (1.4-6.5) H 08/10/25 19:12
Absolute Lymphs (auto) 0.3 10^3/uL (1.2-3.4) L 08/10/25 19:12
Absolute Monos (auto) 0.4 10^3/uL (0.1-0.6) 08/10/25 19:12
Absolute Basos (auto) 0.0 10^3/uL (0-0.2) 08/10/25 19:12
Immature Gran % 0.3 % (0-0.5) 08/10/25 19:12
Neutrophils % 93.1 % (42.2-75.2) H 08/10/25 19:12
Lymphocytes % 2.6 % (20.5-51.1) L 08/10/25 19:12
Monocytes % 3.4 % (1.7-9.3) 08/10/25 19:12
Eosinophils % 0.4 % (0-6) 08/10/25 19:12
Basophils % 0.2 % (0-2) 08/10/25 19:12
Lactic Acid 0.8 mmol/L (0.7-2.0) 08/10/25 22:16
Microbiology Results
Micro:
08/10/25 22:16 Blood Culture - Pending
Blood/Venous
08/10/25 19:12 Blood Culture - Pending
Blood/Venous
Imaging:
05/27/25 Duplex ultrasound right lower extremity: There is normal compressibility and color Doppler imaging of the right deep venous system from the common femoral vein through the posterior tibial vein with no evidence for deep venous thrombosis.
The proximal right greater saphenous vein is also patent.
Assessment / Plan
Right lower extremity cellulitis
Right lower extremity lymphedema
Leukocytosis; improved
Fevers; none since admission
Lymphedema
Morbid obesity (BMI = 48)
HTN
HLD
Hypothyroidism
Recommendations:
Continue with cefazolin.
Continue with lower extremity elevation.
Patient will bring in compressive stockings and neoprene wraps as she would prefer not to use Fletcher wrap's at the present time secondary to discomfort.
Continue to monitor for clinical improvement.
[2025-08-11] MEDS: FLUSH (NSS) 1 FLUSH IV (13:53)
--- NOTE | 2025-08-11 14:56 | W.PN.HOSP.TC ---
Today's Communication/Plan
-
maintain on ancef
monitor T curve
continue leg elevation/compression therapy
Assessment / Plan
Assessment / Plan
1. Right leg cellulitis
sepsis - POA
History of lymphedema
History of recurrent cellulitis
- Patient with mild leukocytosis/tachycardia at admission. Reported temperature of 100.8 Fahrenheit
- Rectal examination showing lower leg cellulitis
- Patient with history of recurrent cellulitis in the past
- Patient is currently following with lymphedema specialist and plan to get a lymphangiogram down the road
- Patient was maintained on suppressive Keflex therapy, currently on IV Ancef.
2. Obesity
- On Ozempic, patient questioning if cephalexin obstruction gets decreased with Ozempic, will review
3. Essential hypertension
- Maintain on home dose of Norvasc/lisinopril
4. HLD
- continue on rosuvastatin
5. GERD
- maintain on protonix
DVTPPX - lovenox
Full code
Total time spent : 54 mins
Anticipated Discharge: 24 - 48 hours
Subjective/Interval History
-
Date of Service: August 11, 2025
no new problems overnight
Objective Data
-
Labs:
Laboratory Results
08/11/25
06:49
WBC 9.3
Hgb 10.8 L
Hct 32.1 L
Plt Count 145
Sodium 137
Potassium 3.5
Chloride 105
Carbon Dioxide 24
BUN 19 H
Creatinine 0.6
Glucose 89
Calcium 8.8
Vital Signs:
Vital Signs
Temp Pulse Resp BP Pulse Ox
97.6 F 73 20 139/48 96
08/11/25 08:59 08/11/25 08:59 08/11/25 08:59 08/11/25 08:59 08/11/25 08:59
I&O
08/10/25 08/11/25 08/12/25
06:59 06:59 06:59
Intake Total 240 / 240
Balance 240 / 240
Review of Systems
-
Respiratory: Reports No Symptoms
Cardiac: Reports No Symptoms
Abdomen/GI: Reports No Symptoms
Physical Exam
-
General: No Apparent Distress and Comfortable
HEENT: Negative Oxygen
Respiratory: Clear to Auscultation
Cardiac: Regular Rhythm and S1/S2; Negative Murmur or Rub
GI: Soft, Nontender and Nondistended
Musculoskeletal: No Edema
Neuro: Awake, Alert, Oriented, No Motor Deficits and Nonfocal/Grossly Intact
Psych: Calm
[2025-08-11 15:21] VITALS: BP 142/56
--- NOTE | 2025-08-11 15:33 | PTCARENOTE ---
Pt AAO x3, ESPARZA well, OOB to BR, ricki well, no c/o weakness/dizziness. VSS. On room air- pulse ox 98%, no SOB noted. Abd obese, soft, ricki PO. Voids in BR without difficulty. RLE reddened with +2 edema; pt denies discomfort at site; keeping RLE
elevated on pillow. resting in bed at present. Will continue to monitor.
--- NOTE | 2025-08-11 15:52 | CM ---
CM spoke with patient on and patient stated that she resides w/ spouse in a single story home, 2 steps to enter. Patient indicated that she has been independent prior to admission adl's and iadls, no DME reported. Patient drives currently.
Patient indicated that she had not needed SNF or VN previously. Patient PCP is Luma Olsen and she is still using the [facility] in [place]. Patient plan is for spouse to provide transportation home. CM will continue to follow for discharge
planning needs.
Plan: Home, no needs watch for possible VN
[2025-08-11] MEDS: LOVENOX 40 MG SC (17:23)
[2025-08-11] MEDS: ZESTRIL 20 MG PO (17:23)
[2025-08-11] MEDS: ASPIR LOW (ENTERIC COATED) 81 MG PO (17:23)
[2025-08-11] MEDS: CRESTOR 5 MG PO (17:23)
[2025-08-11] MEDS: NORVASC 5 MG PO (17:23)
[2025-08-11] MEDS: PROTONIX 40 MG PO (17:23)
[2025-08-11] MEDS: COLACE 200 MG PO (20:43)
[2025-08-11] MEDS: SENOKOT 17.2 MG PO (20:44)
[2025-08-11] MEDS: TYLENOL 650 MG PO (20:57)
--- NOTE | 2025-08-11 20:59 | PTCARENOTE ---
Patient admits to fall at home. Request patient ring for assistance when needing to ambulate. Patient removed fall risk bracelet and is refusing to wear.
[2025-08-11 23:14] VITALS: BP 122/56
[2025-08-12] MEDS: ANCEF 10 IV ×3 (05:35→21:39)
[2025-08-12] MEDS: SYNTHROID 125 MCG PO (05:35)
[2025-08-12 07:22] VITALS: BP 129/54
[2025-08-12 08:33] LABS: Hematocrit 31.8 % (37.0-47.0); Hemoglobin 10.5 g/dL (12.0-16.0); Mean Corp Hgb Conc. 33.0 g/dL (33.0-37.0); Mean Corpuscular Volume 86.4 fL (81.0-99.0); Platelet Count 128 10^3/uL (130-400); Red Cell Dist. Width 14.6 % (11.5-14.5)
[2025-08-12 09:24] LABS: Blood Urea Nitrogen 13 mg/dl (7-17); Calcium 8.5 mg/dl (8.4-10.2); Carbon Dioxide 24 mmol/L (22-30); Chloride 107 mmol/L (98-107); Estimated Creatinine Clearance 92 ml/min; Glucose 88 mg/dl (70-99); Potassium 3.4 mmol/L (3.5-5.1); Sodium 138 mmol/L (135-145); eGFR > 60.00
--- NOTE | 2025-08-12 11:45 | W.PN.HOSP.TC ---
Today's Communication/Plan
-
abx per ID
monitor plt count
Assessment / Plan
Assessment / Plan
1. Right leg cellulitis
sepsis - POA
History of lymphedema
History of recurrent cellulitis
- Patient with mild leukocytosis/tachycardia at admission. Reported temperature of 100.8 Fahrenheit
- Rectal examination showing lower leg cellulitis
- Patient with history of recurrent cellulitis in the past
- Patient is currently following with lymphedema specialist and plan to get a lymphangiogram down the road
- ID evaluated and help appreciated
- Slow progression of cellulitis finding today, discussed with ID, await further recommendation.
2. Obesity
- On Ozempic, patient questioning if cephalexin obstruction gets decreased with Ozempic, will review
3. Essential hypertension
- Maintain on home dose of Norvasc/lisinopril
4. HLD
- continue on rosuvastatin
5. GERD
- maintain on protonix
6. Thrombocytopenia
- Minimal drop in platelet count 128K, monitor
DVTPPX - lovenox
Full code
Anticipated Discharge: 24 - 48 hours
Subjective/Interval History
-
Date of Service: August 12, 2025
Some progression of right leg cellulitic findings
afebrile in the night
Objective Data
-
Labs:
Laboratory Results
08/12/25
06:45
WBC 6.5
Hgb 10.5 L
Hct 31.8 L
Plt Count 128 L
Sodium 138
Potassium 3.4 L
Chloride 107
Carbon Dioxide 24
BUN 13
Creatinine 0.5 L
Glucose 88
Calcium 8.5
Vital Signs:
Vital Signs
Temp Pulse Resp BP Pulse Ox
98.3 F 61 18 129/54 98
08/12/25 07:22 08/12/25 07:22 08/12/25 07:22 08/12/25 07:22 08/12/25 07:45
I&O
08/11/25 08/12/25 08/13/25
06:59 06:59 06:59
Intake Total 240 / 240 1020 / 1020
Balance 240 / 240 1020 / 1020
Review of Systems
-
Respiratory: Reports No Symptoms
Cardiac: Reports No Symptoms
Abdomen/GI: Reports No Symptoms
Physical Exam
-
General: No Apparent Distress and Comfortable
HEENT: Negative Oxygen
Respiratory: Clear to Auscultation
Cardiac: Regular Rhythm and S1/S2; Negative Murmur or Rub
GI: Soft, Nontender and Nondistended
Musculoskeletal: No Edema
Skin: Other (Right leg and thigh erythema, marked skin)
Neuro: Awake, Alert, Oriented, No Motor Deficits and Nonfocal/Grossly Intact
Psych: Calm
--- NOTE | 2025-08-12 12:26 | CM ---
Spoke with patient in room she said she has been treated for cellulitis before.
Offered VN she declined need.
She is on IV antibiotics.
PLAN Home with no anticipated need
--- NOTE | 2025-08-12 14:13 | W.PN.ID1 ---
Date of Service
Date of Service: August 12, 2025
Today's Communication
Continue antibiotics.
Assessment / Plan
Right lower extremity cellulitis
Right lower extremity lymphedema
Leukocytosis; improved
Fevers; none since admission
Lymphedema
Morbid obesity (BMI = 48)
HTN
HLD
Hypothyroidism
Recommendations:
Continue with cefazolin 2 gm IV q.8 hours
Continue with lower extremity elevation.
Continue to monitor for clinical improvement, although physical exam may lag clinical improvement by several days.
Chief Complaint
-: Cellulitis
Subjective / Review of Systems
Patient seen and examined. Reports some increase in noted erythema of the right leg, although denies pain. Swelling persist. Denies any inguinal discomfort or swelling.
Vital Signs / Physical Exam
Vital Signs
Vital Signs
Temp Pulse Resp BP Pulse Ox
98.3 F 61 18 129/54 98
08/12/25 07:22 08/12/25 07:22 08/12/25 07:22 08/12/25 07:22 08/12/25 07:45
Physical Exam
Constitutional: No Acute Distress, Comfortable and Non-toxic
Eyes: Sclera Anicteric
Pulmonary: Non Labored
Extremities: Edema (Right lower extremity) and Erythema (Right lower extremity with ongoing erythema, with some spread as compared to yesterday's exam. Areas are warm, but without significant tenderness.)
Neurological: Awake and Alert
Psychological: Calm
Objective Data
Lab Data
Lab Results
08/12/25 06:45
08/12/25 06:45
Estimated Creat Clear 92 ml/min 08/12/25 06:45
Lactic Acid 0.8 mmol/L (0.7-2.0) 08/10/25 22:16
Total Bilirubin 0.7 mg/dl (0.2-1.3) 08/10/25 19:12
AST 17 U/L (14-36) 08/10/25 19:12
ALT < 10 U/L (0-35) 08/10/25 19:12
Alkaline Phosphatase 61 U/L (38-126) 08/10/25 19:12
Most recent labs reviewed.
Micro Results:
08/10/25 22:16 Blood Culture - Preliminary
Blood/Venous No Growth in 24 hours- Final report to follow
08/10/25 19:12 Blood Culture - Preliminary
Blood/Venous No Growth in 24 hours- Final report to follow
Imaging:
05/27/25 Duplex ultrasound right lower extremity: There is normal compressibility and color Doppler imaging of the right deep venous system from the common femoral vein through the posterior tibial vein with no evidence for deep venous thrombosis.
The proximal right greater saphenous vein is also patent.
[2025-08-12 15:40] VITALS: BP 134/54
[2025-08-12] MEDS: LOVENOX 40 MG SC (17:16)
[2025-08-12] MEDS: CRESTOR 5 MG PO (17:16)
[2025-08-12] MEDS: PROTONIX 40 MG PO (17:16)
[2025-08-12] MEDS: NORVASC 5 MG PO (17:16)
[2025-08-12] MEDS: ASPIR LOW (ENTERIC COATED) 81 MG PO (17:16)
[2025-08-12] MEDS: ZESTRIL 20 MG PO (17:17)
[2025-08-12] MEDS: SENOKOT 17.2 MG PO (21:38)
[2025-08-12] MEDS: COLACE 200 MG PO (21:39)
[2025-08-12 23:19] VITALS: BP 101/50
[2025-08-13] MEDS: SYNTHROID 125 MCG PO (05:34)
[2025-08-13] MEDS: ANCEF 10 IV ×3 (05:35→21:17)
[2025-08-13 07:00] VITALS: BP 147/69
[2025-08-13 09:49] LABS: Hematocrit 34.4 % (37.0-47.0); Hemoglobin 11.4 g/dL (12.0-16.0); Mean Corp Hgb Conc. 33.1 g/dL (33.0-37.0); Mean Corpuscular Volume 86.2 fL (81.0-99.0); Platelet Count 146 10^3/uL (130-400); Red Cell Dist. Width 14.4 % (11.5-14.5)
[2025-08-13 10:16] LABS: Blood Urea Nitrogen 10 mg/dl (7-17); Calcium 8.7 mg/dl (8.4-10.2); Carbon Dioxide 28 mmol/L (22-30); Chloride 107 mmol/L (98-107); Estimated Creatinine Clearance 92 ml/min; Glucose 156 mg/dl (70-99); Potassium 3.3 mmol/L (3.5-5.1); Sodium 140 mmol/L (135-145); eGFR > 60.00
--- NOTE | 2025-08-13 10:54 | CM ---
CM reviewed chart, patient seen bedside.
Patient remains on IV antibiotics, will follow for needs upon d/c
Care ongoing.
Plan; home no needs, watch for IV antibiotics upon d.c
[2025-08-13] MEDS: KCL 20 MEQ PO (11:54)
--- NOTE | 2025-08-13 12:13 | W.PN.HOSP.TC ---
Today's Communication/Plan
-
replace K
Possible discharge tomorrow if continues to improve
Assessment / Plan
Assessment / Plan
1. Right leg cellulitis- improved
sepsis - POA
History of lymphedema
History of recurrent cellulitis
- Patient with mild leukocytosis/tachycardia at admission. Reported temperature of 100.8 Fahrenheit
- Patient with history of recurrent cellulitis in the past
- Patient is currently following with lymphedema specialist and plan to get a lymphangiogram down the road
- Currently maintained on IV Ancef. ID help appreciated
2. Obesity
- On Ozempic, patient questioning if cephalexin obstruction gets decreased with Ozempic, will review
3. Essential hypertension
- Maintain on home dose of Norvasc/lisinopril
4. HLD
- continue on rosuvastatin
5. GERD
- maintain on Protonix
6. Thrombocytopenia - resolved
- Minimal drop in platelet count , which is resolved
7. Hypokalemia
- Replace with 20 mEq of K
DVTPPX - lovenox
Full code
Anticipated Discharge: Within 24 hours
Subjective/Interval History
-
Date of Service: August 13, 2025
Right leg erythema better
No new issues reported
Objective Data
-
Labs:
Laboratory Results
08/13/25
09:13
WBC 4.7 L
Hgb 11.4 L
Hct 34.4 L
Plt Count 146
Sodium 140
Potassium 3.3 L
Chloride 107
Carbon Dioxide 28
BUN 10
Creatinine 0.5 L
Glucose 156 H
Calcium 8.7
Vital Signs:
Vital Signs
Temp Pulse Resp BP Pulse Ox
98.6 F 61 16 147/69 97
08/13/25 07:00 08/13/25 07:00 08/13/25 07:00 08/13/25 07:00 08/13/25 08:08
I&O
08/12/25 08/13/25 08/14/25
06:59 06:59 06:59
Intake Total 1020 / 1020 1020 / 1020
Balance 1020 / 1020 1020 / 1020
Review of Systems
-
Respiratory: Reports No Symptoms
Cardiac: Reports No Symptoms
Abdomen/GI: Reports No Symptoms
Physical Exam
-
General: Obese
HEENT: Negative Oxygen
Skin: Other (Right leg fading erythema)
Neuro: Awake, Alert, Oriented and No Motor Deficits
[2025-08-13] MEDS: FLUSH (NSS) 1 FLUSH IV (14:13)
[2025-08-13 15:00] VITALS: BP 131/59
--- NOTE | 2025-08-13 16:00 | PTCARENOTE ---
Pt AAO x3, ESPARZA well, OOB in room/to BR; ricki well. VSS. On room air- pulse ox 96%, no SOB noted. Abd obese, soft, ricki PO well. Voids in BR without difficulty. Pt with reddened areas Rt lower leg/Rt thigh; +2 edema RLE. Pt keeping Rt leg
elevated on pillow when in bed. Pt resting cmfortably at present, no c/o. Will continue to monitor.
[2025-08-13] MEDS: ZESTRIL 20 MG PO (17:24)
[2025-08-13] MEDS: PROTONIX 40 MG PO (17:24)
[2025-08-13] MEDS: NORVASC 5 MG PO (17:24)
[2025-08-13] MEDS: CRESTOR 5 MG PO (17:24)
[2025-08-13] MEDS: ASPIR LOW (ENTERIC COATED) 81 MG PO (17:24)
[2025-08-13] MEDS: LOVENOX 40 MG SC (17:25)
[2025-08-13] MEDS: COLACE PO (21:27)
[2025-08-13] MEDS: SENOKOT PO (21:27)
[2025-08-13 23:29] VITALS: BP 116/43
[2025-08-14] MEDS: ANCEF 10 IV (05:38)
[2025-08-14] MEDS: SYNTHROID 125 MCG PO (05:38)
[2025-08-14 07:00] VITALS: BP 126/54
[2025-08-14 07:18] LABS: Hematocrit 31.2 % (37.0-47.0); Hemoglobin 10.2 g/dL (12.0-16.0); Mean Corp Hgb Conc. 32.7 g/dL (33.0-37.0); Mean Corpuscular Volume 86.9 fL (81.0-99.0); Platelet Count 140 10^3/uL (130-400); Red Cell Dist. Width 14.3 % (11.5-14.5)
[2025-08-14 07:38] LABS: Blood Urea Nitrogen 10 mg/dl (7-17); Calcium 8.6 mg/dl (8.4-10.2); Carbon Dioxide 30 mmol/L (22-30); Chloride 108 mmol/L (98-107); Estimated Creatinine Clearance 92 ml/min; Glucose 98 mg/dl (70-99); Potassium 3.6 mmol/L (3.5-5.1); Sodium 142 mmol/L (135-145); eGFR > 60.00
--- NOTE | 2025-08-14 12:47 | W.PN.ID1 ---
Date of Service
Date of Service: August 14, 2025
Today's Communication
Transition to oral therapy. Okay for discharge from ID standpoint.
Assessment / Plan
Right lower extremity cellulitis
Right lower extremity lymphedema
Leukocytosis; improved
Fevers; none since admission
Lymphedema
Morbid obesity (BMI = 48)
HTN
HLD
Hypothyroidism
Recommendations:
Marked improvement in erythema.
Transition to Keflex 1 gm p.o. QID to complete 14 days total. Thereafter, patient will resume suppressive Keflex 1 gm p.o. BID
����������������������������������������������������������
Chief Complaint
-: Cellulitis
Subjective / Review of Systems
Patient seen and examined. Notes marked improvement in right leg redness.
Review of Systems: No Fever and No Chills
Vital Signs / Physical Exam
Vital Signs
Vital Signs
Temp Pulse Resp BP Pulse Ox
98.4 F 60 18 126/54 95
08/14/25 07:00 08/14/25 07:00 08/14/25 07:00 08/14/25 07:00 08/14/25 08:54
Physical Exam
Constitutional: No Acute Distress, Comfortable and Non-toxic
Eyes: Sclera Anicteric
Pulmonary: Non Labored
Extremities: Edema (Right lower extremity) and Erythema (Diminished)
Neurological: Awake and Alert
Psychological: Calm
Objective Data
Lab Data
Lab Results
08/14/25 06:48
08/14/25 06:48
Estimated Creat Clear 92 ml/min 08/14/25 06:48
Lactic Acid 0.8 mmol/L (0.7-2.0) 08/10/25 22:16
Total Bilirubin 0.7 mg/dl (0.2-1.3) 08/10/25 19:12
AST 17 U/L (14-36) 08/10/25 19:12
ALT < 10 U/L (0-35) 08/10/25 19:12
Alkaline Phosphatase 61 U/L (38-126) 08/10/25 19:12
Most recent labs reviewed.
Micro Results:
08/10/25 22:16 Blood Culture - Preliminary
Blood/Venous No Growth in 72 hours- Final report to follow
08/10/25 19:12 Blood Culture - Preliminary
Blood/Venous No Growth in 72 hours- Final report to follow
Imaging:
05/27/25 Duplex ultrasound right lower extremity: There is normal compressibility and color Doppler imaging of the right deep venous system from the common femoral vein through the posterior tibial vein with no evidence for deep venous thrombosis.
The proximal right greater saphenous vein is also patent.
Care Review
Plan reviewed with: Physician (Hospitalist)
--- NOTE | 2025-08-14 12:51 | W.DCSUMMARY ---
Discharge Summary
Discharge Data
Date of Admission: 08/10/25
Date of Discharge: 08/14/25
-
Pending Results: No
Hospital Course
Discharging Physician : Dr Manfred Schwartz
Disposition : home
Primary care physician : Dr Eleno Olsen
Principal Discharge diagnosis :
Right leg cellulitis
Mild sepsis
Transient thrombocytopenia
Hypokalemia
Chronic Discharge diagnosis :
History of lymphedema
History of recurrent cellulitis
Obesity
Essential hypertension
Hyperlipidemia
Gastroesophageal reflux disease
Physical examination:
HEENT: No pallor, cyanosis, or jaundice. Throat clear.
NECK: Supple. No JVD.
RESPIRATORY: Lungs clear to auscultation.
CVS: S1, S2 normal. RRR. No murmur, rub or gallop.
ABDOMEN: Soft, non-tender. No distension. BS+/normal.
EXTREMITIES: No peripheral cyanosis or edema.
BEEF RIBBER: AOx3. No focal deficits.
Hospital Course :
Patient is a 75-year-old female with history of lymphedema and recurrent lower extremity cellulitis came to ER with new onset of right leg developing erythema. Patient had slid out of bed and had some superficial epidermal abrasion which had healed
although patient started noticing some new erythema developing in the right leg. Patient was diagnosed to have repeat episode of cellulitis of which patient has history. Patient was started on IV Ancef. ID was involved in care and patient had
improvement in symptoms over few days. Patient is already on chronic suppressive therapy with Keflex and there was question of possible failure although in light of improvement of symptoms with IV Ancef this seems unlikely. ID recommended for
patient to be continued on Keflex 1 g 4 times daily for 14 days followed by 1 g twice daily for 6 months. Patient has a follow-up with lymphedema clinic for an outpatient lymphangiogram. Patient was discharged home at this point.
Important imaging findings :
None
Procedure findings :
None
Discharge Plan
-
Patient Disposition: Home (Routine Discharge)
Discharge Diagnosis/Procedures: Right leg cellulitis, chronic lymphedema
Condition: Fair
Diet: Regular
Activity: As tolerated
Driving Restrictions: As prior to admission
Bathing Restrictions: OK to Shower
Referrals:
Luma Olsen CRNP [Family Provider, Internal Medicine] - in one week
Prescriptions:
New
cephalexin 500 mg capsule
1,000 mg PO Q6H 14 Days Qty: 175 0RF
Rx Instructions:
Take 2 tablets Four times a days for 14 days THEN
Take 2 tablets twice daily
Continued
amlodipine 5 mg Tablet
5 mg PO QPM
aspirin 81 mg Tablet,Delayed Release (Dr/Ec)
81 mg PO QPM
rosuvastatin 5 mg Tablet
5 mg PO QPM
pantoprazole [Protonix] 40 mg tablet,delayed release (DR/EC)
40 mg PO QPM
lisinopril 20 mg Tablet
20 mg PO QPM Qty: 30 0RF
levothyroxine 125 mcg Tablet
125 mcg PO QPM Qty: 30 0RF
cephalexin 500 mg capsule
1,000 mg PO TID
Zepbound 2.5 mg/0.5 mL Pen Injector
2.5 mg SC QWEEK
Rx Instructions:
for 4 weeks
Discharge Orders:
Discharge Patient (As Directed); Ordered 08/14/25
Ordered By: Manfred Schwartz
Discharge Date and Time
Print Language: GEORGIAN
--- NOTE | 2025-08-14 12:56 | CM ---
CM reviewed chart, patient seen bedside with family, for discharge today.
Patient denies needs from CM.
IMM verbally reviewed, provided with copy, placed in chart.
CM will continue to follow for all d/c planning needs.
Plan; home no needs, family to transport home
[2025-08-14 13:30] VITALS: BP 148/73
== END 2025-08-14 13:52 | disposition home or self-care (01) | DRG 872 ==
LOC: 4 EAST ACU 23:13
PROVIDERS: Emergency Medicine; Nurse Practitioner Family; ADMITTING PHYSICIAN Internal Medicine; ATTENDING PHYSICIAN Hospitalist; CONSULT PHYSICIAN Internal Medicine Infectious Disease; EMERGENCY PHYSICIAN Emergency Medicine; FAMILY PHYSICIAN Nurse Practitioner
DX: A41.9 Sepsis, unspecified organism (principal); L03.115 Cellulitis of right lower limb; Z68.43 Body mass index [BMI] 50.0-59.9, adult; E78.00 Pure hypercholesterolemia, unspecified; I10 Essential (primary) hypertension; E03.9 Hypothyroidism, unspecified; E66.01 Morbid (severe) obesity due to excess calories; I89.0 Lymphedema, not elsewhere classified; K21.9 Gastro-esophageal reflux disease without esophagitis; D69.6 Thrombocytopenia, unspecified; E87.6 Hypokalemia; D72.829 Elevated white blood cell count, unspecified; Z79.890 Hormone replacement therapy; Z88.0 Allergy status to penicillin; Z88.1 Allergy status to other antibiotic agents; Z91.041 Radiographic dye allergy status; Z79.82 Long term (current) use of aspirin; Z79.899 Other long term (current) drug therapy; Z79.2 Long term (current) use of antibiotics; Z79.85 Long-term (current) use of injectable non-insulin antidiabetic drugs
CPT/HCPCS: 80048; 80053; 83605; 85025; 85027; 87040; 96374; 99285

== ENCOUNTER 2025-08-19 13:42 | Outpatient (RCR) | payer MEDICARE, OTHER, SELFPAY | END 2025-08-19 23:59 | disposition home or self-care (01) | LOC: RPT 13:42 | PROVIDERS: ATTENDING PHYSICIAN Nurse Practitioner | DX: I89.0 Lymphedema, not elsewhere classified (principal); D72.810 Lymphocytopenia; Z73.6 Limitation of activities due to disability; R26.89 Other abnormalities of gait and mobility | CPT/HCPCS: 97140; 97164; 97530 ==

== ENCOUNTER → 2025-09-09 08:16 | Outpatient (REF) | payer MEDICARE, OTHER, SELFPAY ==
[2025-09-11 22:26] LABS: Source Blood
== END ==
LOC: REG 08:16
PROVIDERS: FAMILY PHYSICIAN Nurse Practitioner
DX: D72.810 Lymphocytopenia (principal)
CPT/HCPCS: 36415; 82784

== ENCOUNTER → 2025-09-16 10:14 | Outpatient (REF) | payer MEDICARE, OTHER, SELFPAY ==
[2025-09-16 11:53] LABS: Hematocrit 39.7 % (37.0-47.0); Hemoglobin 13.0 g/dL (12.0-16.0); Mean Corp Hgb Conc. 32.7 g/dL (33.0-37.0); Mean Corpuscular Volume 87.8 fL (81.0-99.0); Nucleated Red Blood Cells % 0 %; Platelet Count 202 10^3/uL (130-400); Red Cell Dist. Width 14.5 % (11.5-14.5)
[2025-09-16 12:36] LABS: ALT (SGPT) < 10 U/L (0-35); AST (SGOT) 15 U/L (14-36); Albumin 4.1 g/dl (3.5-5.0); Alkaline Phosphatase 62 U/L (38-126); Blood Urea Nitrogen 12 mg/dl (7-17); Calcium 9.2 mg/dl (8.4-10.2); Carbon Dioxide 27 mmol/L (22-30); Chloride 106 mmol/L (98-107); Glucose 90 mg/dl (70-99); HDL Cholesterol 58 mg/dl; LDL Cholesterol, Calculated 98 mg/dl; Potassium 3.9 mmol/L (3.5-5.1); Sodium 137 mmol/L (135-145); Total Protein 6.8 g/dl (6.3-8.2); Very Low Density Lipoprotein 13 mg/dl (0-30); eGFR > 60.00
[2025-09-16 13:02] LABS: TSH 0.04 uIU/ml (0.47-4.68)
== END ==
LOC: REG 10:14
PROVIDERS: ATTENDING PHYSICIAN Nurse Practitioner
DX: L03.115 Cellulitis of right lower limb (principal); I89.0 Lymphedema, not elsewhere classified; L30.9 Dermatitis, unspecified; D64.9 Anemia, unspecified; M25.511 Pain in right shoulder; E66.01 Morbid (severe) obesity due to excess calories
CPT/HCPCS: 36415; 80053; 80061; 84443; 85025

== ENCOUNTER 2025-09-20 08:08 | Outpatient (RCR) | payer MEDICARE, OTHER, SELFPAY | END 2025-09-20 23:59 | disposition home or self-care (01) | LOC: RPT 08:08 | PROVIDERS: ATTENDING PHYSICIAN Nurse Practitioner | DX: I89.0 Lymphedema, not elsewhere classified (principal); D72.810 Lymphocytopenia; Z73.6 Limitation of activities due to disability; R26.89 Other abnormalities of gait and mobility | CPT/HCPCS: 97140; 97530 ==

== ENCOUNTER 2025-09-27 07:17 | Outpatient (RCR) | payer MEDICARE, OTHER, SELFPAY | END 2025-09-27 23:59 | disposition home or self-care (01) | LOC: RPT 07:17 | PROVIDERS: ATTENDING PHYSICIAN Nurse Practitioner | DX: I89.0 Lymphedema, not elsewhere classified (principal); D72.810 Lymphocytopenia; Z73.6 Limitation of activities due to disability; R26.89 Other abnormalities of gait and mobility | CPT/HCPCS: 97140; 97530 ==